=== PATIENT | male | born 1960 | race Caucasian/White ===

== ENCOUNTER 2016-10-10 20:46 | Inpatient (IN) | payer OTHER ==
[~2016-10-10] VITALS: Ht 172.7 cm; Wt 82.0 kg
[2016-10-10 20:49] VITALS: BP 105/64; PULSE 118; RESP 16; TEMP 99.2; O2SAT 98
[2016-10-10 20:55] VITALS: BP 122/69; PULSE 110; RESP 20; O2SAT 92
[2016-10-10] MEDS ORDERED: ONDANSETRON HCL 4 MG/2 ML VIAL IV PUSH ONE (21:00)
[2016-10-10] MEDS ORDERED: MORPHINE SULFATE 4 MG/ML INJ IV PUSH ONE (21:00)
[2016-10-10] MEDS ORDERED: SODIUM CHLORIDE 0.9% FLUSH 5 ML FLUSH IVF PRN (21:00)
[2016-10-10] MEDS ORDERED: SODIUM CHLORID 0.9% 500 ML INJ 500 ML IV ONE (21:00)
[2016-10-10 21:10] VITALS: O2SAT 92
[2016-10-10 21:26] VITALS: O2SAT 97
[2016-10-10 21:33] VITALS: BP 105/61; PULSE 100; RESP 18; O2SAT 97
--- NOTE | 2016-10-10 21:34 | PD ---
HPI Chief Complaint: Abdominal Pain Time Seen by Provider: 20:59 Travel History International Travel<30 days: No Contact w/Intl Traveler<30days: No Traveled to known affect area: No History of Present Illness HPI 56-year-old male came to the emergency room with history of right upper quadrant abdominal pain/right lower chest pain. Patient says this is going on for past 3 days and is progressively getting worse. He looked very uncomfortable. He says the pain worsens upon deep breath. He is coughing but not producing any phlegm. His temperature was 99.9. He was tachycardic in the ER with heart rate in 1 teens. No history of nausea or vomiting. No history of diarrhea. Patient has never had pain like this in the past. No radiation of the pain beyond the area described earlier. He says he has diabetes which is diet controlled. He was awake and answering questions appropriately. [facility] Past Medical History Narrative Medical List of his past medical, surgical, social and family history was reviewed from the nursing note. Diabetes: Yes (PRE) Social History Alcohol Use: Yes Tobacco Use: No Substance Use: No Allergies-Medications (Allergen,Severity, Reaction): Coded Allergies: Penicillin (Verified Allergy, Unknown, 10/10/16) Comments List of his allergies reviewed from the nursing note. Narrative Medication Awaiting for the nurse to complete the med reconciliation. Review of Systems Except as stated in HPI: all other systems reviewed are Neg Physical Exam Narrative GENERAL: Awake, alert, anxious, significant distress SKIN: Warm and dry. Pale HEAD: Atraumatic. Normocephalic. EYES: Pupils equal and round. No scleral icterus. No injection or drainage. ENT: No nasal bleeding or discharge. Dry mucous membrane NECK: Trachea midline. No JVD. CARDIOVASCULAR: Regular rate and rhythm. No murmur appreciated. RESPIRATORY: No accessory muscle use. Patient is tachypneic and short taking shallow breaths Clear to auscultation. Breath sounds equal bilaterally. GASTROINTESTINAL: Abdomen soft, Raymundo sign positive, nondistended. Hepatic and splenic margins not palpable. MUSCULOSKELETAL: No obvious deformities. No clubbing. No cyanosis. No edema. NEUROLOGICAL: Awake and alert. No obvious cranial nerve deficits. Motor grossly within normal limits. Normal speech. PSYCHIATRIC: Appropriate mood and affect; insight and judgment normal. Data Data Last Documented VS Vital Signs Date Time Temp Pulse Resp B/P Pulse Ox O2 Delivery O2 Flow Rate FiO2 10/10/16 23:10 16 10/10/16 21:33 100 105/61 97 Nasal Cannula 3 10/10/16 20:49 99.2 Orders Electrocardiogram (10/10/16 ) Basic Metabolic Panel (Bmp) (10/10/16 20:59) Ckmb (Isoenzyme) Profile (10/10/16 20:59) Complete Blood Count With Diff (10/10/16 20:59) Magnesium (Mg) (10/10/16 20:59) Prothrombin Time / Inr (Pt) (10/10/16 20:59) Act Partial Throm Time (Ptt) (10/10/16 20:59) Troponin I (10/10/16 20:59) Lipase (10/10/16 20:59) Chest, Single Ap (10/10/16 20:59) Ecg Monitoring (10/10/16 20:59) Bilateral Bp Monitoring (10/10/16 20:59) Iv Access Insert/Monitor (10/10/16 20:59) Oximetry (10/10/16 20:59) Oxygen Administration (10/10/16 20:59) Sodium Chloride 0.9% Flush (Ns Flush) (10/10/16 21:00) Sodium Chlorid 0.9% 500 Ml Inj (Ns 500 M (10/10/16 21:00) Ct Pulmonary Angiogram (10/10/16 20:59) Morphine Inj (Morphine Inj) (10/10/16 21:00) Ondansetron Inj (Zofran Inj) (10/10/16 21:00) Blood Culture (10/10/16 21:03) Lactic Acid (10/10/16 21:03) Ct Abd/Pel W Iv Contrast(Rout) (10/10/16 ) Sodium Chlor 0.9% 1000 Ml Inj (Ns 1000 M (10/10/16 22:08) Sodium Chlor 0.9% 1000 Ml Inj (Ns 1000 M (10/10/16 22:08) Sodium Chlor 0.9% 1000 Ml Inj (Ns 1000 M (10/10/16 22:08) Hepatic Functional Panel (10/10/16 22:08) Aztreonam Inj (Azactam Inj) (10/10/16 22:30) Vancomycin Inj (Vancomycin Inj) (10/10/16 22:30) Iodixanol 320 Inj (Rad Ct) (Visipaque 32 (10/10/16 22:29) Morphine Inj (Morphine Inj) (10/11/16 00:15) Admit Order (Ed Use Only) (10/11/16 00:14) NPO (10/11/16 00:14) Labs Laboratory Tests Test 10/10/16 10/10/16 10/10/16 21:05 21:17 22:19 White Blood Count 28.8 TH/MM3 Red Blood Count 4.76 MIL/MM3 Hemoglobin 13.9 GM/DL Hematocrit 41.3 % Mean Corpuscular Volume 86.7 FL Mean Corpuscular Hemoglobin 29.2 PG Mean Corpuscular Hemoglobin 33.7 % Concent Red Cell Distribution Width 13.8 % Platelet Count 233 TH/MM3 Mean Platelet Volume 7.7 FL Neutrophils (%) (Auto) 88.1 % Lymphocytes (%) (Auto) 5.4 % Monocytes (%) (Auto) 5.7 % Eosinophils (%) (Auto) 0.0 % Basophils (%) (Auto) 0.8 % Neutrophils # (Auto) 25.4 TH/MM3 Lymphocytes # (Auto) 1.5 TH/MM3 Monocytes # (Auto) 1.6 TH/MM3 Eosinophils # (Auto) 0.0 TH/MM3 Basophils # (Auto) 0.2 TH/MM3 CBC Comment DIFF FINAL Differential Comment Prothrombin Time 12.2 SEC Prothromb Time International 1.1 RATIO Ratio Activated Partial 31.5 SEC Thromboplast Time Sodium Level 133 MEQ/L Potassium Level 4.5 MEQ/L Chloride Level 97 MEQ/L Carbon Dioxide Level 24.0 MEQ/L Anion Gap 12 MEQ/L Blood Urea Nitrogen 32 MG/DL Creatinine 1.77 MG/DL Estimat Glomerular Filtration 40 ML/MIN Rate Random Glucose 228 MG/DL Hemoglobin A1c 8.0 % Calcium Level 8.8 MG/DL Magnesium Level 2.2 MG/DL Total Creatine Kinase 40 U/L Troponin I LESS THAN 0.02 NG/ML Lipase 44 U/L Lactic Acid Level 2.2 mmol/L Total Bilirubin 1.3 MG/DL Direct Bilirubin 0.4 MG/DL Indirect Bilirubin 0.9 MG/DL Aspartate Amino Transf 39 U/L (AST/SGOT) Alanine Aminotransferase 33 U/L (ALT/SGPT) Alkaline Phosphatase 97 U/L Total Protein 7.0 GM/DL Albumin 3.2 GM/DL MDM Medical Decision Making Medical Screen Exam Complete: Yes Emergency Medical Condition: Yes Medical Record Reviewed: Yes Interpretation(s) Twelve-lead EKG was reviewed by me. Normal sinus rhythm, normal axis, tachycardia, nonspecific ST-T wave changes. Incidentally patient has an S1 Q3 T3. Heart rate of 108 bpm Differential Diagnosis PE, pneumonia, acute cholecystitis Narrative Course 9:33 PM I try to attempt a bedside sonogram to look at the gallbladder but was unable to. Patient was uncomfortable with radiologic Raymundo's sign positive. Awaiting for the blood test results and the CAT scan to be done and resulted. I 'm concerned from PE standpoint as well given the history and the vitals. I've ordered 500 cc of IV fluid bolus, morphine for pain and Zofran. 10:41 PM patient's WBC count was significantly elevated with a left shift. Lactic acid was elevated as well. I have ordered IV fluid and antibiotic as per the sepsis protocol. The CAT scan has been done. Awaiting for the report. 11:15 PM CAT scan does not show any PE but acute cholecystitis. I have put a call out for the general surgeon. Patient will require admission. Awaiting for the general surgeon to call back. 12:07 AM case was discussed earlier with Dr. Argueta who was the patient nothing by mouth and we'll try to take the patient to the OR tomorrow. Because of the elevated glucose and possibility of underlying diabetes he wanted the patient to be admitted to medical service. Awaiting for the hospitalist to call back. Critical Care Narrative Aggregate critical care time was 45 minutes. Time to perform other separately billable procedures was not included in the critical care time. My time did not include minutes spent treating any other patients simultaneously or on activities that did not directly contribute to the patient's treatment. The services I provided to this patient were to treat and/or prevent clinically significant deterioration that could result in: Sepsis, sepsis protocol, respiratory distress, acute cholecystitis I provided critical care services requiring my management, as noted below: Chart data review, documentation time, medication orders and management, vital sign assessments/reviewing monitor data, ordering and reviewing lab tests, ordering and interpreting/reviewing x-rays and diagnostic studies, care of the patient and discussion of the patient with the admitting physicians. Procedures EKG Prior to Arrival: No Physician Communication Physician Communication Dr. Argueta Diagnosis Primary Impression: Sepsis Qualified Code: A41.9 - Sepsis, due to unspecified organism Additional Impressions: Respiratory distress Pleuritic chest pain Acute cholecystitis Hyperglycemia Dehydration Admitting Information Admitting Physician Requests: Admit Jesus Manuel Santiago MD Oct 10, 2016 21:34
--- NOTE | 2016-10-10 21:40 | RADRPT ---
EXAM DATE/TIME: 10/10/2016 21:18 [facility] COMPARISON: No previous studies available for comparison. INDICATIONS : Patient has had abdominal pain since Friday. He states he vomited Friday but that is it. MEDICAL HISTORY : None. SURGICAL HISTORY : None. ENCOUNTER: Initial ACUITY: 3 days PAIN SCORE: 9/10 LOCATION: Bilateral Abdominal. FINDINGS: There is trace left base atelectasis. Lungs are otherwise clear. No pleural effusion. No pneumothorax . Heart size within normal limits. CONCLUSION: Minimal left base atelectasis. Juan Benoit MD on October 10, 2016 at 21:38 Board Certified Radiologist. This report was verified electronically.
[2016-10-10 21:44] LABS: INTERNATIONAL NORMALIZED RATIO 1.1 RATIO; PROTHROMBIN TIME - PATIENT 12.2 SEC (9.8-11.6)
[2016-10-10 21:50] LABS: ANION GAP 12 MEQ/L (5-15); BLOOD UREA NITROGEN 32 MG/DL (7-18); CHLORIDE 97 MEQ/L (98-107); GLOMERULAR FILTRATION RATE 40 ML/MIN (>89); MAGNESIUM 2.2 MG/DL (1.5-2.5); SODIUM (NA) 133 MEQ/L (136-145)
[2016-10-10 21:56] LABS: APTT (PATIENT) 31.5 SEC (24.3-30.1)
[2016-10-10 22:05] LABS: AUTOMATED NEUTROPHIL # 25.4 TH/MM3 (1.8-7.7); BASOPHIL # 0.2 TH/MM3 (0-0.2); BASOPHIL % 0.8 % (0.0-2.0); HEMATOCRIT 41.3 % (39.0-51.0); HEMO FLAGS DIFF FINAL; LYMPH % 5.4 % (9.0-44.0); LYMPHOCYTE # 1.5 TH/MM3 (1.0-4.8); MEAN CELL VOLUME 86.7 FL (80.0-100.0); MEAN CORPUSCULAR HEMOGLOBIN 29.2 PG (27.0-34.0); MEAN CORPUSCULAR HGB CONC 33.7 % (32.0-36.0); MONO % 5.7 % (0.0-8.0); NEUT % 88.1 % (16.0-70.0); PLATELET COUNT 233 TH/MM3 (150-450); RED BLOOD COUNT 4.76 MIL/MM3 (4.50-5.90); RED CELL DISTRIBUTION WIDTH 13.8 % (11.6-17.2); WHITE BLOOD COUNT 28.8 TH/MM3 (4.0-11.0)
[2016-10-10] MEDS ORDERED: SODIUM CHLOR 0.9% 1000 ML INJ 1,000 ML IV ONE ×2 (22:08)
[2016-10-10] MEDS ORDERED: SODIUM CHLOR 0.9% 1000 ML INJ 700 ML IV ONE (22:08)
[2016-10-10] MEDS ORDERED: IODIXANOL 320 MG/ML 10 ML VIAL (for Rad CT) IV ONE (22:29)
[2016-10-10] MEDS ORDERED: AZTREONAM INJ 2,000 MG in SODIUM CHLORIDE 0.9% INJ 100 ML IV ONE (22:30)
[2016-10-10] MEDS ORDERED: VANCOMYCIN INJ 1,000 MG in SODIUM CHLOR 0.9% 250 ML INJ 250 ML IV ONE (22:30)
--- NOTE | 2016-10-10 22:43 | RADRPT ---
EXAM DATE/TIME: 10/10/2016 22:19 [facility] COMPARISON: No previous studies available for comparison. INDICATIONS : Right low chest pain, worse on inspiration, and tachycardic for three days IV CONTRAST: 50 cc Visipaque (iodixanol) IV ; Cumulative dose for multiple exams. RADIATION DOSE: 12.11 CTDIvol (mGy) ; Combined studies MEDICAL HISTORY : Diabetes mellitus type 2. SURGICAL HISTORY : None. ENCOUNTER: Initial ACUITY: 3 days PAIN SCALE: 7/10 LOCATION: Right chest TECHNIQUE: Volumetric scanning of the chest was performed using a pulmonary embolism protocol MIP images were re constructed. Using automated exposure control and adjustment of the mA and/or kV according to patien t size, radiation dose was kept as low as reasonably achievable to obtain optimal diagnostic quality images. FINDINGS: PULMONARY ARTERIES: No filling defects are seen in the pulmonary arteries through the segmental level. LUNGS: Mild bibasilar atelectasis. PLEURAE: There is no pleural thickening or pleural effusion. MEDIASTINUM: There is good visualization of the great vessels of the middle mediastinum. No evidence of mediastin al or hilar adenopathy/mass. There is patchy calcification proximally of the right coronary and the l eft anterior descending. MUSCULOSKELETAL: Within normal limits for patient age. CONCLUSION: No pulmonary embolus. Mild bibasilar atelectasis. Coronary artery calcification. Juan Benoit MD on October 10, 2016 at 22:41 Board Certified Radiologist. This report was verified electronically.
--- NOTE | 2016-10-10 22:47 | RADRPT ---
EXAM DATE/TIME: 10/10/2016 22:19 [facility] COMPARISON: No previous studies available for comparison. INDICATIONS : Right upper quadrant pain for three days IV CONTRAST: 50 cc Visipaque (iodixanol) IV ; Cumulative dose for multiple exams. ORAL CONTRAST: No oral contrast ingested. RADIATION DOSE: 13.05 CTDIvol (mGy) ; Combined studies MEDICAL HISTORY : Diabetes mellitus type 2. SURGICAL HISTORY : None. ENCOUNTER: Initial ACUITY: 1 day PAIN SCALE: 7/10 LOCATION: Right upper quadrant TECHNIQUE: Volumetric scanning of the abdomen and pelvis was performed. Using automated exposure control and ad justment of the mA and/or kV according to patient size, radiation dose was kept as low as reasonably achievable to obtain optimal diagnostic quality images. FINDINGS: Distended gallbladder with wall thickening and pericholecystic edema noted. Tiny stones are suspected . I don't see a duct stone or ductal dilatation. Liver, spleen, pancreas, adrenal glands and kidneys are within normal limits. No obstruction or acute inflammatory changes are seen of the gastrointestinal tract. 16mm air and flu id-filled diverticulum seen in the third portion of the duodenum.CONCLUSION: Acute cholecystitis with possible small stones. No evidence of ductal dilatation. Juan Benoit MD on October 10, 2016 at 22:43 Board Certified Radiologist. This report was verified electronically.
[2016-10-10 23:02] LABS: INDIRECT BILIRUBIN 0.9 MG/DL (0.0-0.8); TOTAL BILIRUBIN ADULT 1.3 MG/DL (0.2-1.0)
[2016-10-11] MEDS ORDERED: MORPHINE SULFATE 4 MG/ML INJ IV PUSH ONE (00:15)
[2016-10-11] MEDS: D5-1/2 NS + KCL 20 MEQ INJ 1,000 ML IV SCH ×2 (00:17→01:00)
[2016-10-11] MEDS ORDERED: SODIUM CHLORIDE 0.9% FLUSH 5 ML FLUSH FLUSH PRN (00:30)
[2016-10-11] MEDS ORDERED: ONDANSETRON HCL 4 MG/2 ML VIAL IVP PRN (00:30)
[2016-10-11] MEDS ORDERED: NALOXONE HCL 0.4 MG/ML AMP IV PRN ×3 (00:30→21:15)
[2016-10-11 01:45] VITALS: BP 129/74; PULSE 106; RESP 20; TEMP 98.6; O2SAT 98
[2016-10-11 03:54] LABS: CREATINE KINASE 40 U/L (39-308)
[2016-10-11 03:58] LABS: POTASSIUM 4.5 MEQ/L (3.5-5.1)
[2016-10-11 04:00] VITALS: BP 133/78
[2016-10-11] MEDS: AZTREONAM INJ 1,000 MG in SODIUM CHLORIDE 0.9% INJ 100 ML IV SCH ×3 (06:26→21:54)
[2016-10-11] MEDS: MORPHINE SULFATE 4 MG/ML INJ IV PUSH PRN ×3 (07:16→13:48)
[2016-10-11 08:30] VITALS: BP 122/62; PULSE 105; RESP 20; TEMP 100.5; O2SAT 96
[2016-10-11] MEDS ORDERED: GLUCAGON 1 MG/ML VIAL OTHER PRN (08:30)
[2016-10-11] MEDS ORDERED: DEXTROSE 50% IN WATER 50 ML VIAL(D50) IV PUSH PRN (08:30)
--- NOTE | 2016-10-11 08:31 | HHI.HP ---
[facility] Service [facility] Primary Care Physician No Primary Care Physician Admission Diagnosis sepsis, acute cholecystitis, dehydration Diagnoses: (1) Sepsis (2) Acute cholecystitis (3) Acute renal failure (4) Borderline diabetes mellitus Chief Complaint: Right upper quadrant pain Travel History International Travel<30 Days: No Contact w/Intl Traveler <30 Da: No Traveled to Known Affected Are: No Sepsis Criteria SIRS Criteria (2 or more): Heart rate over 90, WBC > 58992, < 4000 or > 10% bands Sepsis Criteria (SIRS+source): Infect source susp/known Severe Sepsis (+one): Lactate >2 Criteria Outcome: Meets sepsis criteria History of Present Illness 56-year-old male with a history of borderline diabetes presented to the ED and subsequently was admitted secondary to progressively worse right upper quadrant pain 3 days duration rated 9/10 in intensity with some pleuritic chest pain. Patient also complains of associated with nausea and vomiting made worse with deep breathing. Patient reported subjective fever however denies any cough production. CT abdomen positive for acute cholecystitis, abnormal labs include WBC 28.8, lactate acid 2.2, BUN/creatinine 33/1.77. Patient denies any GI bleeding, hematuria, hemoptysis or currently chest pain. Review of Systems Other 12 systems reviewed are negative except for the one mentioned in the history of present illness Past Family Social History Past Medical History Borderline diabetes History of hypertension however resolved Past Surgical History Eye surgeries secondary to retinopathy Reported Medications Not currently on any medication Allergies: Coded Allergies: Penicillin (Verified Allergy, Unknown, 10/10/16) Family History Mother had diabetes type 2 Father from complication of brain cancer Social History Patient denies tobacco however reports social alcohol as well as occasional marijuana use. He is currently employed Physical Exam Vital Signs Vital Signs Date Time Temp Pulse Resp B/P Pulse Ox O2 Delivery O2 Flow Rate FiO2 10/11/16 04:00 133/78 10/11/16 01:45 98.6 106 20 129/74 98 10/10/16 23:10 16 10/10/16 21:33 100 18 105/61 97 Nasal Cannula 3 10/10/16 21:26 97 Nasal Cannula 3 10/10/16 21:26 96 Nasal Cannula 3 10/10/16 21:10 92 Room Air 10/10/16 21:10 92 Room Air 10/10/16 20:55 110 20 122/69 92 Room Air 10/10/16 20:54 18 10/10/16 20:49 99.2 118 16 105/64 98 Room Air Physical Exam GENERAL: This is a well-nourished, well-developed patient, in no apparent distress. SKIN: No rashes, ecchymoses or lesions. Cool and dry. HEAD: Atraumatic. Normocephalic. No temporal or scalp tenderness. EYES: Pupils equal round and reactive. Extraocular motions intact. No scleral icterus. No injection or drainage. ENT: Nose without bleeding, purulent drainage or septal hematoma. Throat without erythema, tonsillar hypertrophy or exudate. Uvula midline. Airway patent. NECK: Trachea midline. No JVD or lymphadenopathy. Supple, nontender, no meningeal signs. CARDIOVASCULAR: Regular rate and rhythm without murmurs, gallops, or rubs. RESPIRATORY: Clear to auscultation. Breath sounds equal bilaterally. No wheezes , rales, or rhonchi. GASTROINTESTINAL: Abdomen soft, mildly tender RUQ, nondistended. No hepato- splenomegaly, or palpable masses. No guarding. Positive bowel sounds MUSCULOSKELETAL: Extremities without clubbing, cyanosis, or edema. No joint tenderness, effusion, or edema noted. No calf tenderness. Negative Homans sign bilaterally. NEUROLOGICAL: Awake and alert. Cranial nerves II through XII intact. Motor and sensory grossly within normal limits. Five out of 5 muscle strength in all muscle groups. Normal speech. Laboratory Laboratory Tests Test 10/10/16 10/10/16 10/10/16 21:05 21:17 22:19 White Blood Count 28.8 Red Blood Count 4.76 Hemoglobin 13.9 Hematocrit 41.3 Mean Corpuscular Volume 86.7 Mean Corpuscular Hemoglobin 29.2 Mean Corpuscular Hemoglobin 33.7 Concent Red Cell Distribution Width 13.8 Platelet Count 233 Mean Platelet Volume 7.7 Neutrophils (%) (Auto) 88.1 Lymphocytes (%) (Auto) 5.4 Monocytes (%) (Auto) 5.7 Eosinophils (%) (Auto) 0.0 Basophils (%) (Auto) 0.8 Neutrophils # (Auto) 25.4 Lymphocytes # (Auto) 1.5 Monocytes # (Auto) 1.6 Eosinophils # (Auto) 0.0 Basophils # (Auto) 0.2 CBC Comment DIFF FINAL Differential Comment Prothrombin Time 12.2 Prothromb Time International 1.1 Ratio Activated Partial 31.5 Thromboplast Time Sodium Level 133 Potassium Level 4.5 Chloride Level 97 Carbon Dioxide Level 24.0 Anion Gap 12 Blood Urea Nitrogen 32 Creatinine 1.77 Estimat Glomerular Filtration 40 Rate Random Glucose 228 Calcium Level 8.8 Magnesium Level 2.2 Total Creatine Kinase 40 Troponin I LESS THAN 0.02 Lipase 44 Lactic Acid Level 2.2 Total Bilirubin 1.3 Direct Bilirubin 0.4 Indirect Bilirubin 0.9 Aspartate Amino Transf 39 (AST/SGOT) Alanine Aminotransferase 33 (ALT/SGPT) Alkaline Phosphatase 97 Total Protein 7.0 Albumin 3.2 Date/Time Procedure Status Source Growth 10/10/16 21:17 Aerobic Blood Culture Received Blood Peripheral Pending 10/10/16 21:17 Anaerobic Blood Culture Received Blood Peripheral Pending Result Diagram: 10/10/16210410/10/162104 Imaging Last Impressions Chest X-Ray 10/10/162058 Signed Impressions: Service Date/Time: September 21:18 - CONCLUSION: Minimal left base atelectasis. Juan Benoit MD CT Angiography 10/10/162058 Signed Impressions: Service Date/Time: September 22:19 - CONCLUSION: No pulmonary embolus. Mild bibasilar atelectasis. Coronary artery calcification. Juan Benoit MD Abdomen/Pelvis CT 10/10/16 0000 Signed Impressions: Service Date/Time: September 22:19 - CONCLUSION: Acute cholecystitis with possible small stones. No evidence of ductal dilatation. Juan Benoit MD Assessment and Plan Problem List: (1) Sepsis ICD Code: A41.9 Status: Acute (2) Acute cholecystitis ICD Code: K81.0 Status: Acute (3) Acute renal failure ICD Code: N17.9 Status: Acute (4) Borderline diabetes mellitus ICD Code: R73.03 Status: Acute Assessment and Plan 56-year-old male with Severe Sepsis: Meets sepsis criteria; Heart rate over 90, WBC > 01817, < 4000 or > 10% bands and Lactate >2; source secondary to intra-abdominal process; currently on Azactam IV every 8 hours pending culture reports Acute cholecystitis: CT abdomen noted and reviewed by me with finding of Acute cholecystitis with possible small stones; general surgery has been consulted and patient currently nothing by mouth pending possible lap cholecystectomy . Currently on Azactam IV every 8 pending culture reports. Continue with IV fluid, pain management accordingly Pleuritic chest pain: CTA noted and reviewed by me without any PE, pleuritic chest pain now resolved and was most likely radiation from right upper quadrant associated with acute cholecystitis Acute renal failure: Prerenal, secondary to dehydration, new IV fluid hydration and monitor BUN and creatinine. Avoid all nephrotoxic drugs. Borderline diabetes type 2: Labile blood glucose, check hemoglobin A1c and start insulin sliding scale with fingerstick blood glucose monitoring. GI prophylaxis: PPI DVT prophylaxis: Bilateral SCDs Code Status Full code Discussed Condition With Patient Physician Certification 2 Midnight Certification Type: Admission for Inpatient Services Order for Inpatient Services The services are ordered in accordance with Medicare regulations or non- Medicare payer requirements, as applicable. In the case of services not specified as inpatient-only, they are appropriately provided as inpatient services in accordance with the 2-midnight benchmark. Estimated LOS (days): 2 days is the estimated time the patient will need to remain in the hospital, assuming treatment plan goals are met and no additional complications. Post-Hospital Plan: Not yet determined Problem Qualifiers (1) Sepsis: Qualified Code: A41.9 - Sepsis, due to unspecified organism Travon Daniels MD Oct 11, 2016 08:31
[2016-10-11] MEDS ORDERED: ENALAPRILAT 1.25 MG/ML VIAL IV PUSH PRN (08:45)
[2016-10-11] MEDS ORDERED: RESP: ALBUTEROL 2.5 MG/IPRATROPIUM 0.5 MG NEB (PRN) NEB (08:45)
[2016-10-11] MEDS: SODIUM CHLORIDE 0.9% FLUSH 5 ML FLUSH FLUSH SCH ×2 (09:00→21:00)
[2016-10-11] MEDS: SODIUM CHLOR 0.9% 1000 ML INJ 1,000 ML IV SCH ×2 (09:26→23:09)
[2016-10-11] MEDS: PANTOPRAZOLE SODIUM 40 MG VIAL IV PUSH SCH (09:28)
[2016-10-11] MEDS: INSULIN ASPART SUPPLEMENTAL SCALE SQ SCH ×3 (11:00→21:00)
[2016-10-11] MEDS ORDERED: CLINDAMYCIN INJ 600 MG in SODIUM CHLORIDE 0.9% INJ 100 ML IV ONE (11:00)
--- NOTE | 2016-10-11 11:19 | MB ---
cc: RUPERT DANIELS MD DATE OF CONSULTATION 10/11/2016 CHIEF COMPLAINT Right upper quadrant pain, acute cholecystitis. HISTORY OF PRESENT ILLNESS The patient is 56-year-old male who presents with a complaint of right upper quadrant abdominal pain. States the pain started approximately three days ago and has continued to get worse. He states the pain is sharp at a 9/10, currently 8/10, some relief with the pain medication, he says it gets worse with movement and is better with lying still. He did have associated nausea and vomiting x1 and currently says his nausea is improving. He did have subjective fevers. He came to the emergency department for further evaluation with a CT scan finding of a dilated gallbladder with thickened gallbladder wall and concerns for acute cholecystitis with cholelithiasis. The WBC was 28 and the patient was discussed as surgical consultation. On my exam, the patient is resting. He states his pain is pretty significant at this moment. He has never had pain quite like this before in his life and states it has been pretty constant. He denies diarrhea, constipation or any GI bleeding. PAST MEDICAL HISTORY 1. Borderline diabetes resolved 2. Hypertension PAST SURGICAL HISTORY Eye surgery MEDICATIONS See EMR. ALLERGIES PENICILLIN FAMILY HISTORY Mother with diabetes. Father with brain cancer. SOCIAL HISTORY The patient denies smoking, ETOH or IVDA. REVIEW OF SYSTEMS GENERAL: The patient complained of subjective fevers. HEENT: Denies eye pain, ear pain or scleral icterus. NECK: Trachea midline, supple. LUNGS: Clear to auscultation bilateral. Bilateral expansion. HEART: S1-S2 regular. ABDOMEN: Soft, positive tenderness to palpation right upper quadrant. Positive localized rebound. No guarding. No scars. EXTREMITIES: Warm, well-perfused. NEUROLOGIC: GCS of 15, 5/5 motor all extremities. INTEGUMENT: No obvious masses or lesions. PSYCH: Good insight. Good judgment. : Denies dysuria or hematuria. ENDOCRINE: Denies polyuria or polydipsia. PHYSICAL EXAMINATION VITALS: Temperature 98.6, pulse 106, respiration 20, blood pressure 129/74, saturation 98% on room air. HEENT: PERRLA, EOMI. No scleral icterus. NECK: Supple. LUNGS: Bilateral expansion. Clear. HEART: S1, S2 regular rate and rhythm. ABDOMEN: Soft, positive tenderness to palpation right upper quadrant. EXTREMITIES: Warm, well-perfused, nontender. 2+ pulses. NEUROLOGIC: AO x four. No numbness. PSYCH: No change in sensorium or mental status. LABORATORY AND DIAGNOSTIC DATA WBC 28.8, hemoglobin 13.99 of 41.3, platelet count 233. Sodium 133, potassium 4.5, chloride 97, CO2 24, BUN 32, creatinine of 1.7, calcium 8.8, troponin less than 0.2, lipase 44, T-bili 1.3, AST 39, ALT 33, alk phos 97. CT scan reviewed by myself showing concern for inflamed dilated gallbladder and acute cholecystitis, small stones. ASSESSMENT The patient is a 56-year-old male who presents with acute onset of right upper quadrant pain and concern for acute cholecystitis with cholelithiasis. PLAN After a full clinical radiologic and laboratory workup patient with the above-named complaint including acute cholecystitis. At this point, the patient needs IV antibiotics, adequate pain control, IV fluids, close monitoring. We will plan for operative intervention including a laparoscopic cholecystectomy, possible open. This was discussed with the patient in detail. The patient states understanding, agrees and would like to proceed with intervention. Thank you for this consultation. MD VÍCTOR Peña/JAMIE /10:54 AM /11:08 AM
[2016-10-11 11:55] VITALS: O2SAT 92
[2016-10-11 12:00] VITALS: BP 117/68; PULSE 104; RESP 16; TEMP 99.2; O2SAT 98
[2016-10-11] MEDS ORDERED: NORMOSOL R INJ 1,000 ML IV ONE (12:00)
[2016-10-11] MEDS ORDERED: LACTATED RINGER'S 1000 ML INJ 3,000 ML IV ONE (12:34)
[2016-10-11] MEDS ORDERED: PROPOFOL 200 MG/20 ML AMP IV ONE (12:34)
[2016-10-11] MEDS ORDERED: NORMOSOL R INJ 3,000 ML IV ONE (12:34)
[2016-10-11] MEDS ORDERED: PHENYLEPH/NS 1000 MCG/10 ML SYR IV ONE (12:34)
[2016-10-11] MEDS ORDERED: NEOSTIGMINE 3 MG/3 ML SYR IV ONE (12:34)
[2016-10-11] MEDS ORDERED: ONDANSETRON HCL 4 MG/2 ML VIAL IV PUSH ONE (12:34)
[2016-10-11] MEDS ORDERED: LIDOCAINE 1%/EPINEPHrine 1:100,000 SOLN 50 ML VIAL ONE (14:25)
--- NOTE | 2016-10-11 14:56 | EKG ---
Date Performed: 10/10/2016 Time Performed: 21:09:38 PTAGE: 56 years EKG: SINUS TACHYCARDIA INFERIOR MYOCARDIAL INFARCTION ABNORMAL ECG NO PREVIOUS TRACING DOCTOR: Della Faye Interpretating Date/Time 10/11/2016 14:52:47
[2016-10-11] MEDS ORDERED: FAMOTIDINE 20 MG/2 ML VIAL ONE (16:04)
[2016-10-11] MEDS ORDERED: MIDAZOLAM HCL 2 MG/2 ML VIAL ONE (16:04)
[2016-10-11] MEDS ORDERED: DEXAMETHASONE SOD PHOS 4 MG/ML VIAL ONE (16:04)
[2016-10-11 16:40] LABS: HEMOGLOBIN A1a 1.1 %; HEMOGLOBIN LA1C 2.5 %; HEMOGLOBIN P3 4.7 %
--- NOTE | 2016-10-11 18:23 | HHI.PR ---
Immediate Post Op Note Procedure Date: Oct 11, 2016 Pre Op Diagnosis: gangrenous acute cholecystitis Post Op Diagnosis: same Surgeon: Param Argueta MD Director Dietetics Department(s): Dr. Elliot Schmitt Procedure: lap avery converted to open avery Findings: necrotic gallbladder Complications: none Specimen(s) removed: gallbladder Estimated blood loss: 600cc Anesthesia: General Drains: PRATIMA IVF ([id number]) Patient to: PACU Patient Condition: Good Param Argueta MD Oct 11, 2016 18:23
[2016-10-11] MEDS ORDERED: BUPIVACAINE/EPINEPHRINE 0.25% 50 ML VIAL INFIL ONE (18:34)
[2016-10-11] MEDS ORDERED: MORPHINE SULFATE 4 MG/ML INJ IV PUSH PRN (19:00)
[2016-10-11] MEDS ORDERED: oxyCODONE/ACETAMINOPHEN 5 MG/325 MG TAB PO PRN (19:00)
[2016-10-11 19:46] LABS: BLOOD GAS BASE EXCESS -5.5 mmol/L (-2-2); BLOOD GAS HCO3 18 mmol/L (22-26); BLOOD GAS METHEMOGLOBIN 1.3 % (0-2); BLOOD GAS O2 HGB SATURATION 96 % (90-100); BLOOD GAS OXYGEN CONTENT 19.6 Vol % (12.0-20.0); BLOOD GAS PCO2 30 mmHg (38-42); BLOOD GAS PO2 177 mmHg (61-120); BLOOD GAS TOTAL HGB 14.3 G/DL (12.0-16.0); CRITICAL VALUE NO; FIO2 54 %; OXYGEN DEVICE O.R. ABG; STAT YES; TEMP CORR TO 98.6
[2016-10-11] MEDS ORDERED: ACETAMINOPHEN 1000 MG/100 ML VIAL IV ONE (20:38)
[2016-10-11] MEDS: LACTOBACILLUS ACIDOPHILUS TAB PO SCH (21:00)
[2016-10-11] MEDS ORDERED: MORPHINE SULFATE 30 MG/30 ML PCA IV SCH (21:15)
[2016-10-11] MEDS ORDERED: MORPHINE SULFATE 4 MG/ML INJ ONE (21:30)
[2016-10-11] MEDS ORDERED: fentaNYL CITRATE 250 MCG/5 ML AMP ONE ×2 (21:30)
[2016-10-11] MEDS: PCA - TOTAL MG MORPHINE DELIVERED PER SHIFT SCH (22:00)
[2016-10-12] VITALS (7 sets, daily range): BP systolic 108–161; BP diastolic 64–83; PULSE 88–114; RESP 16–20; TEMP 96–98.4; O2SAT 93–99
[2016-10-12 05:17] LABS: WHITE BLOOD COUNT 14.5 TH/MM3 (4.0-11.0)
[2016-10-12 05:18] LABS: AUTOMATED NEUTROPHIL # 13.8 TH/MM3 (1.8-7.7); BASOPHIL % 0.1 % (0.0-2.0); HEMATOCRIT 28.6 % (39.0-51.0); HEMO FLAGS DIFF FINAL; LYMPH % 2.1 % (9.0-44.0); LYMPHOCYTE # 0.3 TH/MM3 (1.0-4.8); MEAN CELL VOLUME 90.4 FL (80.0-100.0); MEAN CORPUSCULAR HEMOGLOBIN 30.1 PG (27.0-34.0); MEAN CORPUSCULAR HGB CONC 33.3 % (32.0-36.0); MONO % 3.1 % (0.0-8.0); NEUT % 94.7 % (16.0-70.0); PLATELET COUNT 184 TH/MM3 (150-450); RED BLOOD COUNT 3.17 MIL/MM3 (4.50-5.90); RED CELL DISTRIBUTION WIDTH 14.3 % (11.6-17.2)
[2016-10-12 05:35] LABS: BICARBONATE 21.9 MEQ/L (21.0-32.0); CALCIUM-PROTEIN CORRECTED 8.2 MG/DL (8.5-10.1); POTASSIUM 4.4 MEQ/L (3.5-5.1); TOTAL BILIRUBIN ADULT 0.6 MG/DL (0.2-1.0)
[2016-10-12] MEDS: SODIUM CHLOR 0.9% 1000 ML INJ 1,000 ML IV SCH ×3 (05:40→23:06)
[2016-10-12] MEDS: PCA - TOTAL MG MORPHINE DELIVERED PER SHIFT SCH ×3 (05:41→20:48)
[2016-10-12] MEDS: AZTREONAM INJ 1,000 MG in SODIUM CHLORIDE 0.9% INJ 100 ML IV SCH ×3 (05:41→23:06)
[2016-10-12] MEDS: INSULIN ASPART SUPPLEMENTAL SCALE SQ SCH ×3 (05:42→20:47)
--- NOTE | 2016-10-12 07:05 | HHI.PR ---
Subjective Subjective Notes no acute issues, wbc 14k improved, no nausea, pain much better Objective Vitals/I&O Vital Signs Date Time Temp Pulse Resp B/P Pulse Ox O2 Delivery O2 Flow Rate FiO2 10/12/16 05:41 18 10/12/16 04:00 98.4 102 133/71 99 10/11/16 22:00 Nasal Cannula 2 Labs Laboratory Tests Test 10/11/16 10/11/16 10/11/16 10/11/16 19:14 19:30 19:38 19:42 Blood Type O POSITIVE O POSITIVE Antibody Screen NEGATIVE Crossmatch Leukocyte-Reduced Red Blood Cells Blood Bank Comment Blood Gas Puncture Site Blood Gas Patient Temperature 98.6 Blood Gas HCO3 18 Blood Gas Base Excess -5.5 Blood Gas Oxygen Saturation 96 Arterial Blood pH 7.41 Arterial Blood Partial 30 Pressure CO2 Arterial Blood Partial 177 Pressure O2 Arterial Blood Oxygen Content 19.6 Arterial Blood 2.0 Carboxyhemoglobin Arterial Blood Methemoglobin 1.3 Blood Gas Hemoglobin 14.3 Oxygen Delivery Device O.R. ABG Blood Gas Inspired Oxygen 54 Test 10/12/16 04:13 White Blood Count 14.5 Red Blood Count 3.17 Hemoglobin 9.5 Hematocrit 28.6 Mean Corpuscular Volume 90.4 Mean Corpuscular Hemoglobin 30.1 Mean Corpuscular Hemoglobin 33.3 Concent Red Cell Distribution Width 14.3 Platelet Count 184 Mean Platelet Volume 8.2 Neutrophils (%) (Auto) 94.7 Lymphocytes (%) (Auto) 2.1 Monocytes (%) (Auto) 3.1 Eosinophils (%) (Auto) 0.0 Basophils (%) (Auto) 0.1 Neutrophils # (Auto) 13.8 Lymphocytes # (Auto) 0.3 Monocytes # (Auto) 0.5 Eosinophils # (Auto) 0.0 Basophils # (Auto) 0.0 CBC Comment DIFF FINAL Differential Comment Sodium Level 138 Potassium Level 4.4 Chloride Level 105 Carbon Dioxide Level 21.9 Anion Gap 11 Blood Urea Nitrogen 27 Creatinine 1.52 Estimat Glomerular Filtration 47 Rate Random Glucose 300 Calcium Level 7.2 Protein Corrected Calcium 8.2 Total Bilirubin 0.6 Aspartate Amino Transf 103 (AST/SGOT) Alanine Aminotransferase 90 (ALT/SGPT) Alkaline Phosphatase 120 Total Protein 5.3 Albumin 2.0 Date/Time Procedure Status Source Growth 10/10/16 21:17 Aerobic Blood Culture - Preliminary Resulted Blood Peripheral NO GROWTH IN 1 DAY 10/10/16 21:17 Anaerobic Blood Culture - Preliminary Resulted Blood Peripheral NO GROWTH IN 1 DAY Cardiovascular: Regular Lungs: Clear Abdomen: Other (incision with dressing c/d/i mylene serosang) A/P Assessment and Plan POD 1 open avery for necrotic gallbladder, cholecystitis PLAN Advance to fulls hot shot will wean tomorrow oob dvt ppx scd mylene sxn f/u labs likely d/c friday or friday Param Argueta MD Oct 12, 2016 07:05
[2016-10-12] MEDS: SODIUM CHLORIDE 0.9% FLUSH 5 ML FLUSH FLUSH SCH ×2 (09:00→20:47)
[2016-10-12] MEDS: PANTOPRAZOLE SODIUM 40 MG VIAL IV PUSH SCH ×2 (09:09→09:15)
[2016-10-12] MEDS: LACTOBACILLUS ACIDOPHILUS TAB PO SCH ×2 (09:10→09:15)
--- NOTE | 2016-10-12 11:11 | HHI.PR ---
Subjective Remarks Follow-up acute cholecystitis/status post lap converted to open cholecystectomy 10/12/16-patient seen and examined; denies any significant abdominal pain; ambulating without any significant pain. Tolerating current diet. Afebrile Objective Vitals Vital Signs Date Time Temp Pulse Resp B/P Pulse Ox O2 Delivery O2 Flow Rate FiO2 10/12/16 08:00 97.6 102 17 119/72 98 10/12/16 05:41 18 10/12/16 04:00 98.4 102 20 133/71 99 10/12/16 00:00 98.3 114 20 108/65 98 10/11/16 23:25 20 10/11/16 23:18 16 10/11/16 22:00 98.0 110 16 97 Nasal Cannula 2 10/11/16 22:00 20 10/11/16 21:45 106 16 106/54 94 Nasal Cannula 2 10/11/16 21:30 107 16 107/57 97 Nasal Cannula 2 10/11/16 21:20 98.8 111 20 108/65 99 Nasal Cannula 2 10/11/16 12:00 99.2 104 16 117/68 98 10/11/16 11:55 92 Nasal Cannula 2.00 I/O 10/11/16 10/11/16 10/11/16 10/12/16 10/12/16 10/12/16 07:00 15:00 23:00 07:00 15:00 23:00 Intake Total 0 ml 0 ml 4600 ml 1558 ml Output Total 0 ml 1150 ml 350 ml 240 ml Balance 0 ml 0 ml 3450 ml 1208 ml -240 ml Intake Oral 0 ml 0 ml 720 ml IV Total 200 ml 838 ml Other 4400 ml Output Urine Total 0 ml 500 ml 350 ml Drainage Total 50 ml 240 ml Estimated Blood Loss 600 ml # Voids 2 # Bowel Movements 0 Result Diagram: 10/12/16 0413 10/12/16 0413 Imaging Last Impressions Chest X-Ray 10/10/162058 Signed Impressions: Service Date/Time: September 21:18 - CONCLUSION: Minimal left base atelectasis. Juan Benoit MD CT Angiography 10/10/162058 Signed Impressions: Service Date/Time: September 22:19 - CONCLUSION: No pulmonary embolus. Mild bibasilar atelectasis. Coronary artery calcification. Juan Benoit MD Abdomen/Pelvis CT 10/10/16 0000 Signed Impressions: Service Date/Time: September 22:19 - CONCLUSION: Acute cholecystitis with possible small stones. No evidence of ductal dilatation. Juan Benoit MD Objective Remarks GENERAL: NAD SKIN: Warm and dry. HEAD: Normocephalic. EYES: No scleral icterus. No injection or drainage. NECK: Supple, trachea midline. No JVD or lymphadenopathy. CARDIOVASCULAR: Regular rate and rhythm without murmurs, gallops, or rubs. RESPIRATORY: Breath sounds equal bilaterally. No accessory muscle use. GASTROINTESTINAL: Abdomen soft, non-tender, nondistended. inc c/d/i- PRATIMA drain in place MUSCULOSKELETAL: No cyanosis, or edema. BACK: Nontender without obvious deformity. No CVA tenderness. Procedures lap avery converted to open cystectomy 10/11/16 A/P Problem List: (1) Sepsis ICD Code: A41.9 Status: Acute (2) Acute cholecystitis ICD Code: K81.0 Status: Acute (3) Acute renal failure ICD Code: N17.9 Status: Acute (4) Borderline diabetes mellitus ICD Code: R73.03 Status: Acute Assessment and Plan 56-year-old male with Severe Sepsis: currently on Azactam IV every 8 hours pending culture reports Acute cholecystitis: CT abdomen noted and reviewed by me with finding of Acute cholecystitis with possible small stones;s/p lap avery converted to open cholecystectomy 10/11/16. Currently on Azactam IV every 8 pending culture reports. Continue with IV fluid, pain management accordingly Pleuritic chest pain: Resolved. CTA noted and reviewed by me without any PE, pleuritic chest pain now resolved and was most likely radiation from right upper quadrant associated with acute cholecystitis Acute renal failure: Prerenal, secondary to dehydration, continue IV fluid hydration and monitor BUN and creatinine. Avoid all nephrotoxic drugs. Borderline diabetes type 2: A1c 8.0, on sliding scale and more likely will be discharged home on metformin as well as basal insulin. Will start NPH 70/30 10 units BID. Recommend outpatient evaluation from endocrinology GI prophylaxis: PPI DVT prophylaxis: Bilateral SCDs Problem Qualifiers (1) Sepsis: Qualified Code: A41.9 - Sepsis, due to unspecified organism Travon Daniels MD Oct 12, 2016 11:11
[2016-10-12] MEDS ORDERED: GLUCAGON 1 MG/ML VIAL OTHER PRN (11:15)
[2016-10-12] MEDS ORDERED: DEXTROSE 50% IN WATER 50 ML VIAL(D50) IV PUSH PRN (11:15)
[2016-10-12] MEDS: INSULIN HUMAN NPH/R 70/30 1,000 UNITS/10 ML VIAL SQ SCH (17:18)
[2016-10-13 04:01] VITALS: BP 165/77; PULSE 84; RESP 18; TEMP 97.1; O2SAT 95
[2016-10-13] MEDS: AZTREONAM INJ 1,000 MG in SODIUM CHLORIDE 0.9% INJ 100 ML IV SCH (04:24)
[2016-10-13] MEDS: PCA - TOTAL MG MORPHINE DELIVERED PER SHIFT SCH (04:26)
[2016-10-13] MEDS: INSULIN ASPART SUPPLEMENTAL SCALE SQ SCH ×4 (04:27→20:40)
[2016-10-13 05:41] LABS: AUTOMATED NEUTROPHIL # 10.2 TH/MM3 (1.8-7.7); HEMATOCRIT 24.1 % (39.0-51.0); HEMO FLAGS DIFF FINAL; LYMPH % 5.9 % (9.0-44.0); LYMPHOCYTE # 0.7 TH/MM3 (1.0-4.8); MEAN CELL VOLUME 87.2 FL (80.0-100.0); MEAN CORPUSCULAR HEMOGLOBIN 29.5 PG (27.0-34.0); MEAN CORPUSCULAR HGB CONC 33.8 % (32.0-36.0); MONO % 5.6 % (0.0-8.0); NEUT % 88.5 % (16.0-70.0); PLATELET COUNT 194 TH/MM3 (150-450); RED BLOOD COUNT 2.77 MIL/MM3 (4.50-5.90); RED CELL DISTRIBUTION WIDTH 13.8 % (11.6-17.2); WHITE BLOOD COUNT 11.5 TH/MM3 (4.0-11.0)
[2016-10-13 07:00] LABS: ALKALINE PHOSPHATASE 107 U/L (45-117); ALT (GPT) 75 U/L (12-78); ANION GAP 8 MEQ/L (5-15); AST (GOT) 60 U/L (15-37); BICARBONATE 24.1 MEQ/L (21.0-32.0); BLOOD UREA NITROGEN 21 MG/DL (7-18); CHLORIDE 108 MEQ/L (98-107); GLOMERULAR FILTRATION RATE 93 ML/MIN (>89); POTASSIUM 4.1 MEQ/L (3.5-5.1); SODIUM (NA) 140 MEQ/L (136-145); TOTAL BILIRUBIN ADULT 0.3 MG/DL (0.2-1.0)
[2016-10-13 08:00] VITALS: BP 135/70; PULSE 89; RESP 17; TEMP 96.9; O2SAT 92
--- NOTE | 2016-10-13 08:56 | HHI.PR ---
Subjective Remarks Follow-up acute cholecystitis/status post lap converted to open cholecystectomy 10/12/16-patient seen and examined; denies any significant abdominal pain; ambulating without any significant pain. Tolerating current diet. Afebrile 10/13/16-patient seen and examined, blood glucose well controlled, afebrile and pain well tolerated. Objective Vitals Vital Signs Date Time Temp Pulse Resp B/P Pulse Ox O2 Delivery O2 Flow Rate FiO2 10/13/16 08:00 96.9 89 17 135/70 92 10/13/16 04:26 16 10/13/16 04:01 97.1 84 18 165/77 95 10/12/16 23:57 97.8 88 20 155/75 93 10/12/16 20:48 18 10/12/16 20:00 96.2 88 20 161/83 97 10/12/16 16:00 96.0 91 17 129/70 96 10/12/16 14:00 16 10/12/16 12:00 97.7 97 16 129/64 94 I/O 10/12/16 10/12/16 10/12/16 10/13/16 10/13/16 10/13/16 07:00 15:00 23:00 07:00 15:00 23:00 Intake Total 1558 ml 720 ml 480 ml 2620 ml Output Total 350 ml 240 ml 2080 ml 106 ml Balance 1208 ml 480 ml -1600 ml 2514 ml Intake Oral 720 ml 720 ml 480 ml 320 ml IV Total 838 ml 2300 ml Output Urine Total 350 ml 2000 ml Drainage Total 240 ml 80 ml 106 ml # Voids 2 2 0 # Bowel Movements 0 0 0 Result Diagram: 10/13/1642410/13/16424 Imaging Last Impressions Chest X-Ray 10/10/162058 Signed Impressions: Service Date/Time: September 21:18 - CONCLUSION: Minimal left base atelectasis. Juan Benoit MD CT Angiography 10/10/162058 Signed Impressions: Service Date/Time: September 22:19 - CONCLUSION: No pulmonary embolus. Mild bibasilar atelectasis. Coronary artery calcification. Juan Benoit MD Abdomen/Pelvis CT 10/10/16 0000 Signed Impressions: Service Date/Time: September 22:19 - CONCLUSION: Acute cholecystitis with possible small stones. No evidence of ductal dilatation. Juan Benoit MD Objective Remarks GENERAL: NAD SKIN: Warm and dry. HEAD: Normocephalic. EYES: No scleral icterus. No injection or drainage. NECK: Supple, trachea midline. No JVD or lymphadenopathy. CARDIOVASCULAR: Regular rate and rhythm without murmurs, gallops, or rubs. RESPIRATORY: Breath sounds equal bilaterally. No accessory muscle use. GASTROINTESTINAL: Abdomen soft, non-tender, nondistended. inc c/d/i- PRATIMA drain in place MUSCULOSKELETAL: No cyanosis, or edema. BACK: Nontender without obvious deformity. No CVA tenderness. Procedures lap avery converted to open cystectomy 10/11/16 A/P Problem List: (1) Sepsis ICD Code: A41.9 Status: Acute (2) Acute cholecystitis ICD Code: K81.0 Status: Acute (3) Acute renal failure ICD Code: N17.9 Status: Acute (4) Borderline diabetes mellitus ICD Code: R73.03 Status: Acute Assessment and Plan 56-year-old male with Severe Sepsis: Resolved and currently on Azactam IV every 8 hours pending culture reports Acute cholecystitis: CT abdomen noted and reviewed by me with finding of Acute cholecystitis with possible small stones;s/p lap avery converted to open cholecystectomy 10/11/16. Currently on Azactam IV every 8 pending culture NTD. Continue with IV fluid, pain management accordingly Pleuritic chest pain: Resolved. CTA noted and reviewed by me without any PE, pleuritic chest pain now resolved and was most likely radiation from right upper quadrant associated with acute cholecystitis Acute renal failure: Prerenal, secondary to dehydration, continue IV fluid hydration and monitor BUN and creatinine. Avoid all nephrotoxic drugs. Borderline diabetes type 2: A1c 8.0, on sliding scale and more likely will be discharged home on metformin as well as basal insulin. Good glycemic control with NPH 70/30 10 units BID. Recommend outpatient evaluation from endocrinology GI prophylaxis: PPI DVT prophylaxis: Bilateral SCDs Problem Qualifiers (1) Sepsis: Qualified Code: A41.9 - Sepsis, due to unspecified organism Travon Daniels MD Oct 13, 2016 08:56
[2016-10-13] MEDS: SODIUM CHLORIDE 0.9% FLUSH 5 ML FLUSH FLUSH SCH ×2 (09:00→20:41)
[2016-10-13] MEDS: INSULIN HUMAN NPH/R 70/30 1,000 UNITS/10 ML VIAL SQ SCH ×2 (09:29→16:32)
[2016-10-13] MEDS: PANTOPRAZOLE SODIUM 40 MG VIAL IV PUSH SCH (09:29)
[2016-10-13] MEDS: LACTOBACILLUS ACIDOPHILUS TAB PO SCH ×2 (09:29→20:40)
[2016-10-13 12:00] VITALS: BP 164/77; PULSE 85; RESP 17; TEMP 98.4; O2SAT 95
--- NOTE | 2016-10-13 12:32 | HHI.PR ---
Subjective Subjective Notes DAILY PROGRESS NOTE FOR SURGICAL ATTENDING, DR. 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 pump Objective Vitals/I&O 10/12/16 10/12/16 10/13/16 15:00 23:00 07:00 Intake Total 720 ml 480 ml 2620 ml Output Total 240 ml 2080 ml 106 ml Balance 480 ml -1600 ml 2514 ml Intake Oral 720 ml 480 ml 320 ml IV Total 2300 ml Output Urine Total 2000 ml Drainage Total 240 ml 80 ml 106 ml # Voids 2 2 0 # Bowel Movements 0 0 0 Vital Signs Date Time Temp Pulse Resp B/P Pulse Ox O2 Delivery O2 Flow Rate FiO2 10/13/16 12:00 98.4 85 17 164/77 95 10/11/16 22:00 Nasal Cannula 2 Labs Laboratory Tests Test 10/13/16 04:25 White Blood Count 11.5 Red Blood Count 2.77 Hemoglobin 8.2 Hematocrit 24.1 Mean Corpuscular Volume 87.2 Mean Corpuscular Hemoglobin 29.5 Mean Corpuscular Hemoglobin 33.8 Concent Red Cell Distribution Width 13.8 Platelet Count 194 Mean Platelet Volume 7.7 Neutrophils (%) (Auto) 88.5 Lymphocytes (%) (Auto) 5.9 Monocytes (%) (Auto) 5.6 Eosinophils (%) (Auto) 0.0 Basophils (%) (Auto) 0.0 Neutrophils # (Auto) 10.2 Lymphocytes # (Auto) 0.7 Monocytes # (Auto) 0.6 Eosinophils # (Auto) 0.0 Basophils # (Auto) 0.0 CBC Comment DIFF FINAL Differential Comment Sodium Level 140 Potassium Level 4.1 Chloride Level 108 Carbon Dioxide Level 24.1 Anion Gap 8 Blood Urea Nitrogen 21 Creatinine 0.85 Estimat Glomerular Filtration 93 Rate Random Glucose 153 Calcium Level 7.5 Total Bilirubin 0.3 Aspartate Amino Transf 60 (AST/SGOT) Alanine Aminotransferase 75 (ALT/SGPT) Alkaline Phosphatase 107 Total Protein 5.4 Albumin 2.0 Lipase 39 Date/Time Procedure Status Source Growth 10/10/16 21:17 Aerobic Blood Culture - Preliminary Resulted Blood Peripheral NO GROWTH IN 3 DAYS 10/10/16 21:17 Anaerobic Blood Culture - Preliminary Resulted Blood Peripheral NO GROWTH IN 3 DAYS Radiology Last Impressions Chest X-Ray 10/10/162058 Signed Impressions: Service Date/Time: September 21:18 - CONCLUSION: Minimal left base atelectasis. Juan Benoit MD CT Angiography 10/10/162058 Signed Impressions: Service Date/Time: September 22:19 - CONCLUSION: No pulmonary embolus. Mild bibasilar atelectasis. Coronary artery calcification. Juan Benoit MD Abdomen/Pelvis CT 10/10/16 0000 Signed Impressions: Service Date/Time: September 22:19 - CONCLUSION: Acute cholecystitis with possible small stones. No evidence of ductal dilatation. 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 CLAYTON LAZCANO I agree with above assessment and plan. . I attest that I had a [id number] encounter with the patient on the same day, and personally performed and documented my assessment and findings in the medical record. The following services were provided during this hospital visit: Chart data review, vital sign assessments/reviewing monitor data Review of consultations notes if present. Medication orders/review and/or management Ordering and/or reviewing lab tests Ordering and/or interpreting/reviewing x-rays and/or diagnostic studies Care of the patient and discussion of the patient with the care team Documentation time To help prompt me to consider important information that might be impacting today's encounter and assessment, information from prior notes written by myself or my colleagues may have been "brought forward/copy and pasted" into today's note. Problem Qualifiers (1) Sepsis: Qualified Code: A41.9 - Sepsis, due to unspecified organism Clayton Lazcano MD Oct 13, 2016 12:32
[2016-10-13] MEDS: SODIUM CHLOR 0.9% 1000 ML INJ 1,000 ML IV SCH ×2 (15:29→20:41)
[2016-10-13 16:00] VITALS: BP 168/72; PULSE 87; RESP 18; TEMP 96.8; O2SAT 97
[2016-10-13 20:00] VITALS: BP 146/76; PULSE 82; RESP 18; TEMP 98.3; O2SAT 96
--- NOTE | 2016-10-13 22:33 | MP ---
cc: RUPERT ARGUETA MD DATE OF SURGERY October 11, 2016 PREOPERATIVE DIAGNOSIS Acute cholecystitis. POSTOPERATIVE DIAGNOSIS Acute gangrenous necrotic cholecystitis. SURGEON Dr. Rupert Argueta CEMENTER MACHINE APPLICATOR Dr. Ruben Schmitt due to the complex nature of the laparoscopic and open operative procedure it was necessary to have assistance by Dr. Schmitt for traction assist and camera control and suturing. PROCEDURE PERFORMED Laparoscopic cholecystectomy converted to open cholecystectomy. ANESTHESIA GETA. IV FLUIDS 4400 cc ESTIMATED BLOOD LOSS 600 cc. DRAINS A 10-Bermudian Margarito drain placed in right upper quadrant. COMPLICATIONS None. WOUND CLASSIFICATION contaminated. SPECIMENS Gallbladder. INDICATION The patient is a 56-year-old male who presented with 3-day onset of right upper quadrant abdominal pain. The patient stated pain got worse and had subjective fevers and came to the emergency department for further evaluation including CT scan showing acute cholecystitis. The patient with a white count of 28,000. Decision made for operative intervention including laparoscopic cholecystectomy. The procedure discussed with the patient in detail in regards to risks, benefits, alternatives, possible open cholecystectomy and possible drain placement. The patient stated understanding and would like to proceed with operative intervention. PROCEDURE IN DETAIL The patient was taken to the operating suite, placed in supine position. He was prepped and draped in usual sterile fashion after induction of general endotracheal anesthesia. Brief time-out done stating correct patient, procedure, surgical site and we were all in agreement with this. Attention first directed to the umbilicus where a stab evaristo incision was made. Veress needle placed. A saline drop test confirmed intra-abdominal placement. Abdomen insufflated to 15 mm pneumoperitoneum. The Veress needle traded for a 5-mm trocar. On cursory inspection no evidence of injury. Upon examination of the right upper quadrant there was noted to be omentum that had adhered very tightly to the right upper quadrant. Three other trocars placed, one 12 mm trocar, followed by two 5 mm right subcostal trocars. The patient placed in reverse Trendelenburg and air planed to the left. Meticulous dissection was done in order to visualize the gallbladder. Again significant omentum was noted to be intently adhered to the right upper quadrant. This was tediously dissected and on exposure of the gallbladder, the gallbladder was noted to be necrotic, gangrenous, and very, very hot friable and distended. At this point, decision was made for open conversion. Pneumoperitoneum removed. Trocars removed. A right subcostal incision was made 2 cm below the right subcostal margin. This was done with a 15 blade scalpel. Further dissection done with electric Bovie cautery through several layers of fascia and muscle. Once we entered the peritoneum Bookwalter self retractor device was placed. The gallbladder was exposed to the right upper quadrant. The gallbladder was identified and again noted be extremely distended, gangrenous and necrotic and friable. The gallbladder was mobilized in a dome down technique with blunt and digitation dissection and electro Bovie cautery. The incision was made on the fundus of gallbladder in order to completely drain the gallbladder of bile. The gallbladder was also partially transected in order to identify and view the tracking of the cystic duct as it went into the common bile duct. This was identified with some difficulty. Very difficult due to gangrenous necrotic tissue. Most of the adhesions were lysed around the gallbladder using electric Bovie cautery. Once the gallbladder was completely mobilized from the gallbladder fossa and necrotic adhesions removed from around the infundibulum to identify the cystic artery. Cystic artery was identified and two right angles were placed. Cystic artery transected and 2-0 Vicryl sutures were used for suture ligation of the cystic artery. Cystic duct was identified and gallbladder was transected from this with a right angle clamp. A 2-0 silk suture was used to ligate the cystic duct. The right upper quadrant was irrigated with multiple aliquots of normal saline. This was done until clear. The common bile duct was identified and noted to have no injury. Hemostasis was obtained at the gallbladder fossa with electro Bovie cautery. Lily was also placed in the right upper quadrant to assist in achieving hemostasis. Next a 10-Bermudian Dylon-Winslow drain was placed through a separate stab evaristo incision inferior to the right subcostal incision. This was secured in place with a 2-0 nylon. This was placed in the gallbladder fossa right upper quadrant. Next the layers of the abdominal wall were closed in two layers. A running single armed #1 PDS was used for the peritoneal strength layer and a #1 looped PDS was used in a running fashion for the second layer. The subcutaneous tissue was then irrigated again and laureen were used to approximate the incision. Telfa carlos manuel were placed. Sterile dressings placed. The patient tolerated procedure well. There were no operative complications. Lap and instrument counts were correct. The patient was extubated and taken stable to the PACU. FINDINGS Significantly distended, necrotic gallbladder. Multiple adhesions to the right upper quadrant. Gangrenous cholecystitis. MD VÍCTOR Peña/RACHEL /10:50 PM /10:12 PM LIBORIO
[2016-10-14] VITALS: BP 137/73; PULSE 69; RESP 20; TEMP 96.9; O2SAT 95
[2016-10-14 05:21] LABS: AUTOMATED NEUTROPHIL # 6.3 TH/MM3 (1.8-7.7); EOSINOPHIL # 0.1 TH/MM3 (0-0.4); EOSINOPHIL % 0.6 % (0.0-4.0); HEMATOCRIT 24.8 % (39.0-51.0); HEMO FLAGS DIFF FINAL; LYMPH % 15.1 % (9.0-44.0); LYMPHOCYTE # 1.3 TH/MM3 (1.0-4.8); MEAN CELL VOLUME 86.4 FL (80.0-100.0); MEAN CORPUSCULAR HEMOGLOBIN 29.7 PG (27.0-34.0); MEAN CORPUSCULAR HGB CONC 34.4 % (32.0-36.0); MONO % 8.9 % (0.0-8.0); NEUT % 75.4 % (16.0-70.0); PLATELET COUNT 223 TH/MM3 (150-450); RED BLOOD COUNT 2.87 MIL/MM3 (4.50-5.90); RED CELL DISTRIBUTION WIDTH 13.4 % (11.6-17.2); WHITE BLOOD COUNT 8.4 TH/MM3 (4.0-11.0)
[2016-10-14] MEDS: INSULIN ASPART SUPPLEMENTAL SCALE SQ SCH ×4 (05:55→19:50)
[2016-10-14] MEDS: SODIUM CHLOR 0.9% 1000 ML INJ 1,000 ML IV SCH (05:56)
[2016-10-14] MEDS: oxyCODONE/ACETAMINOPHEN 5 MG/325 MG TAB PO PRN (06:24)
[2016-10-14 08:00] VITALS: BP 106/57; PULSE 88; RESP 12; TEMP 97.1; O2SAT 93
[2016-10-14] MEDS: LACTOBACILLUS ACIDOPHILUS TAB PO SCH ×2 (08:35→19:49)
[2016-10-14] MEDS: SODIUM CHLORIDE 0.9% FLUSH 5 ML FLUSH FLUSH SCH ×2 (08:35→19:49)
[2016-10-14] MEDS: LEVOFLOXACIN 500 MG TAB PO SCH (08:35)
[2016-10-14] MEDS: PANTOPRAZOLE SOD 20 MG DELAYED RELEASE TAB PO SCH (08:35)
[2016-10-14] MEDS: INSULIN HUMAN NPH/R 70/30 1,000 UNITS/10 ML VIAL SQ SCH ×2 (08:36→17:01)
--- NOTE | 2016-10-14 09:15 | HHI.PR ---
Subjective Remarks Follow-up acute cholecystitis/status post lap converted to open cholecystectomy 10/12/16-patient seen and examined; denies any significant abdominal pain; ambulating without any significant pain. Tolerating current diet. Afebrile 10/13/16-patient seen and examined, blood glucose well controlled, afebrile and pain well tolerated. 10/14/16-patient seen and examined; stable and no complaint . Afebrile. Taking PO without any significant nausea or emesis Objective Vitals Vital Signs Date Time Temp Pulse Resp B/P Pulse Ox O2 Delivery O2 Flow Rate FiO2 10/14/16 00:00 96.9 69 20 137/73 95 10/13/16 20:00 98.3 82 18 146/76 96 10/13/16 16:00 96.8 87 18 168/72 97 10/13/16 12:00 98.4 85 17 164/77 95 I/O 10/13/16 10/13/16 10/13/16 10/14/16 10/14/16 10/14/16 07:00 15:00 23:00 07:00 15:00 23:00 Intake Total 2620 ml 720 ml 460 ml 2521 ml Output Total 106 ml 650 ml 470 ml 850 ml Balance 2514 ml 70 ml -10 ml 1671 ml Intake Oral 320 ml 720 ml 460 ml 480 ml IV Total 2300 ml 2041 ml Output Urine Total 600 ml 450 ml 800 ml Drainage Total 106 ml 50 ml 20 ml 50 ml # Voids 0 # Bowel Movements 0 0 0 0 Result Diagram: 10/14/16 0449 10/13/16 0425 Objective Remarks GENERAL: NAD SKIN: Warm and dry. HEAD: Normocephalic. EYES: No scleral icterus. No injection or drainage. NECK: Supple, trachea midline. No JVD or lymphadenopathy. CARDIOVASCULAR: Regular rate and rhythm without murmurs, gallops, or rubs. RESPIRATORY: Breath sounds equal bilaterally. No accessory muscle use. GASTROINTESTINAL: Abdomen soft, non-tender, nondistended. inc c/d/i- PRATIMA drain in place MUSCULOSKELETAL: No cyanosis, or edema. BACK: Nontender without obvious deformity. No CVA tenderness. Procedures lap avery converted to open cystectomy 10/11/16 A/P Problem List: (1) Sepsis ICD Code: A41.9 Status: Acute (2) Acute cholecystitis ICD Code: K81.0 Status: Acute (3) Acute renal failure ICD Code: N17.9 Status: Acute (4) Borderline diabetes mellitus ICD Code: R73.03 Status: Acute Assessment and Plan 56-year-old male with Severe Sepsis: Resolved and currently on Azactam IV every 8 hours pending culture reports Acute cholecystitis: CT abdomen noted and reviewed by me with finding of Acute cholecystitis with possible small stones;s/p lap avery converted to open cholecystectomy 10/11/16. Currently on Azactam IV every 8H and culture NTD referral was switched to by mouth Levaquin 500 mg daily 10/14/16. Continue with pain management accordingly and transition to by mouth narcotic Pleuritic chest pain: Resolved. CTA noted and reviewed by me without any PE, pleuritic chest pain now resolved and was most likely radiation from right upper quadrant associated with acute cholecystitis Acute renal failure: Prerenal, secondary to dehydration, resolved therefore will HLIV. Avoid all nephrotoxic drugs. Borderline diabetes type 2: A1c 8.0, on sliding scale and more likely will be discharged home on metformin as well as basal insulin. Good glycemic control with NPH 70/30 10 units BID. Recommend outpatient evaluation from endocrinology GI prophylaxis: PPI DVT prophylaxis: Bilateral SCDs Discharge Planning Likely discharge 10/15/16 Problem Qualifiers (1) Sepsis: Qualified Code: A41.9 - Sepsis, due to unspecified organism Travon Daniels MD Oct 14, 2016 09:15
[2016-10-14 12:00] VITALS: BP 111/56; PULSE 78; RESP 12; TEMP 97.3; O2SAT 94
--- NOTE | 2016-10-14 12:37 | HHI.PR ---
Subjective Subjective Notes Resting in bed Pain controlled Objective Vitals/I&O Vital Signs Date Time Temp Pulse Resp B/P Pulse Ox O2 Delivery O2 Flow Rate FiO2 10/14/16 08:00 97.1 88 12 106/57 93 10/11/16 22:00 Nasal Cannula 2 Labs Laboratory Tests Test 10/14/16 04:49 White Blood Count 8.4 Red Blood Count 2.87 Hemoglobin 8.5 Hematocrit 24.8 Mean Corpuscular Volume 86.4 Mean Corpuscular Hemoglobin 29.7 Mean Corpuscular Hemoglobin 34.4 Concent Red Cell Distribution Width 13.4 Platelet Count 223 Mean Platelet Volume 7.4 Neutrophils (%) (Auto) 75.4 Lymphocytes (%) (Auto) 15.1 Monocytes (%) (Auto) 8.9 Eosinophils (%) (Auto) 0.6 Basophils (%) (Auto) 0.0 Neutrophils # (Auto) 6.3 Lymphocytes # (Auto) 1.3 Monocytes # (Auto) 0.7 Eosinophils # (Auto) 0.1 Basophils # (Auto) 0.0 CBC Comment DIFF FINAL Differential Comment Date/Time Procedure Status Source Growth 10/10/16 21:17 Aerobic Blood Culture - Preliminary Resulted Blood Peripheral NO GROWTH IN 4 DAYS 10/10/16 21:17 Anaerobic Blood Culture - Preliminary Resulted Blood Peripheral NO GROWTH IN 4 DAYS Radiology Last Impressions Chest X-Ray 10/10/162058 Signed Impressions: Service Date/Time: September 21:18 - CONCLUSION: Minimal left base atelectasis. Juan Benoit MD CT Angiography 10/10/162058 Signed Impressions: Service Date/Time: September 22:19 - CONCLUSION: No pulmonary embolus. Mild bibasilar atelectasis. Coronary artery calcification. Juan Benoit MD Abdomen/Pelvis CT 10/10/16 0000 Signed Impressions: Service Date/Time: September 22:19 - CONCLUSION: Acute cholecystitis with possible small stones. No evidence of ductal dilatation. Juan Benoit MD Cardiovascular: Regular Lungs: Clear Abdomen: Other (RUQ---incision c/d/i--carlos manuel removed; PRATIMA with SS drainage ) Extremities: No edema A/P Problem List: (1) Acute cholecystitis (2) Sepsis (3) Borderline diabetes mellitus (4) S/P cholecystectomy Assessment and Plan 56 year old male POD3 open cholecystectomy for gangrenous gallbladder -Tolerating regular diet -Continue PO Levaquin -OOB and mobilize -Change dressing daily -Nursing staff to instruct patient on how to empty and care for PRATIMA -Anticipate DC tomorrow Attending Statement pt seen at bedside doing better pain better Attestation The exam, history, and the medical decision-making described in the above note were completed with the assistance of the mid-level provider. I reviewed and agree with the findings presented. I attest that I had a [id number] encounter with the patient on the same day, and personally performed and documented my assessment and findings in the medical record. Problem Qualifiers (1) Sepsis: Qualified Code: A41.9 - Sepsis, due to unspecified organism Kate Dinero Oct 14, 2016 12:37 Param Argueta MD Oct 19, 2016 21:21
[2016-10-14 16:00] VITALS: BP 117/61; PULSE 83; RESP 12; TEMP 97.1; O2SAT 97
[2016-10-14 20:00] VITALS: BP 134/69; PULSE 83; RESP 20; TEMP 98.1; O2SAT 96
[2016-10-15] VITALS: BP 128/70; PULSE 80; RESP 20; TEMP 97.3; O2SAT 95
[2016-10-15] MEDS: INSULIN ASPART SUPPLEMENTAL SCALE SQ SCH ×2 (05:15→10:46)
[2016-10-15] MEDS: oxyCODONE/ACETAMINOPHEN 5 MG/325 MG TAB PO PRN (05:15)
[2016-10-15 08:00] VITALS: BP 152/70; PULSE 78; RESP 17; TEMP 96.8; O2SAT 96
[2016-10-15] MEDS: LEVOFLOXACIN 500 MG TAB PO SCH (08:20)
[2016-10-15] MEDS: SODIUM CHLORIDE 0.9% FLUSH 5 ML FLUSH FLUSH SCH (08:20)
[2016-10-15] MEDS: PANTOPRAZOLE SOD 20 MG DELAYED RELEASE TAB PO SCH (08:20)
[2016-10-15] MEDS: LACTOBACILLUS ACIDOPHILUS TAB PO SCH (08:20)
[2016-10-15] MEDS: INSULIN HUMAN NPH/R 70/30 1,000 UNITS/10 ML VIAL SQ SCH (08:20)
--- NOTE | 2016-10-15 09:18 | HHI.PR ---
Subjective Subjective Notes Resting in bed Waiting for breakfast Wants to try to go home today Feels comfortable taking care of PRATIMA at home Objective Vitals/I&O Vital Signs Date Time Temp Pulse Resp B/P Pulse Ox O2 Delivery O2 Flow Rate FiO2 10/15/16 06:42 18 10/15/16 00:00 97.3 80 128/70 95 10/11/16 22:00 Nasal Cannula 2 Labs Date/Time Procedure Status Source Growth 10/10/16 21:17 Aerobic Blood Culture - Preliminary Resulted Blood Peripheral NO GROWTH IN 4 DAYS 10/10/16 21:17 Anaerobic Blood Culture - Preliminary Resulted Blood Peripheral NO GROWTH IN 4 DAYS Radiology Last Impressions Chest X-Ray 10/10/162058 Signed Impressions: Service Date/Time: September 21:18 - CONCLUSION: Minimal left base atelectasis. Juan Benoit MD CT Angiography 10/10/162058 Signed Impressions: Service Date/Time: September 22:19 - CONCLUSION: No pulmonary embolus. Mild bibasilar atelectasis. Coronary artery calcification. Juan Benoit MD Abdomen/Pelvis CT 10/10/16 0000 Signed Impressions: Service Date/Time: September 22:19 - CONCLUSION: Acute cholecystitis with possible small stones. No evidence of ductal dilatation. Juan Benoit MD Cardiovascular: Regular Lungs: Clear Abdomen: Other (RUQ incision ---dressing removed; inc c/d/i; PRATIMA with SS drainage ) Extremities: No edema A/P Problem List: (1) Acute cholecystitis (2) Sepsis (3) Borderline diabetes mellitus (4) S/P cholecystectomy Assessment and Plan 56 year old male POD4 open cholecystectomy for gangrenous gallbladder -Tolerating regular diet -Continue PO Levaquin -OOB and mobilize -Change dressing daily -Feels comfortable taking care of PRATIMA drain at home -GS clear for DC today -Antibiotic rx on chart -Work note in DC Attending Statement patient seen at bedside doing better no fevers d/c planning Attestation The exam, history, and the medical decision-making described in the above note were completed with the assistance of the mid-level provider. I reviewed and agree with the findings presented. I attest that I had a [id number] encounter with the patient on the same day, and personally performed and documented my assessment and findings in the medical record. Problem Qualifiers (1) Sepsis: Qualified Code: A41.9 - Sepsis, due to unspecified organism Kate Dinero Oct 15, 2016 09:18 Param Argueta MD Oct 19, 2016 21:23
[2016-10-15] MEDS ORDERED: LEVA500T PO (09:20)
[2016-10-15] MEDS ORDERED: POLYETHYLENE GLYCOL 17 GM PKG PO ONE (11:00)
[2016-10-15] MEDS ORDERED: DOCUSATE SODIUM 100 MG CAP PO ONE (11:00)
[2016-10-15] MEDS ORDERED: NOVOLOGSS SQ (11:15)
[2016-10-15] MEDS ORDERED: PERI8.6T PO (11:15)
[2016-10-15] MEDS ORDERED: NOVO7030P2 SQ (11:15)
[2016-10-15] MEDS ORDERED: OXYC1TAB63 PO (11:15)
[2016-10-15] MEDS ORDERED: INSU31MI31 (11:19)
[2016-10-15] MEDS ORDERED: BLOOD GLUCOSE T1 TES (11:19)
[2016-10-15] MEDS ORDERED: INSU-115 (11:19)
[2016-10-15] MEDS ORDERED: BLOOD GLUCOSE M1 KIT (11:19)
[2016-10-15] MEDS ORDERED: METF500T PO (11:36)
--- NOTE | 2016-10-15 11:38 | HHI.PR ---
Subjective Remarks Follow-up acute cholecystitis/status post lap converted to open cholecystectomy 10/12/16-patient seen and examined; denies any significant abdominal pain; ambulating without any significant pain. Tolerating current diet. Afebrile 10/13/16-patient seen and examined, blood glucose well controlled, afebrile and pain well tolerated. 10/14/16-patient seen and examined; stable and no complaint . Afebrile. Taking PO without any significant nausea or emesis 10/15/16-patient seen and examined; no complaints, afebrile, state is ready for discharge today. Objective Vitals Vital Signs Date Time Temp Pulse Resp B/P Pulse Ox O2 Delivery O2 Flow Rate FiO2 10/15/16 08:00 96.8 78 17 152/70 96 10/15/16 06:42 18 10/15/16 00:00 97.3 80 20 128/70 95 10/14/16 20:00 98.1 83 20 134/69 96 10/14/16 16:00 97.1 83 12 117/61 97 10/14/16 12:00 97.3 78 12 111/56 94 I/O 10/14/16 10/14/16 10/14/16 10/15/16 10/15/16 10/15/16 07:00 15:00 23:00 07:00 15:00 23:00 Intake Total 2521 ml 1100 ml 720 ml Output Total 850 ml 1575 ml 700 ml 1720 ml 450 ml Balance 1671 ml -475 ml 20 ml -1720 ml -450 ml Intake Oral 480 ml 700 ml 720 ml IV Total 2041 ml 400 ml Output Urine Total 800 ml 1500 ml 700 ml 1600 ml 450 ml Drainage Total 50 ml 75 ml 120 ml # Voids 2 # Bowel Movements 0 0 0 Result Diagram: 10/14/16 0449 10/13/16 0425 Imaging Last Impressions Chest X-Ray 10/10/162058 Signed Impressions: Service Date/Time: September 21:18 - CONCLUSION: Minimal left base atelectasis. Juan Benoit MD CT Angiography 10/10/162058 Signed Impressions: Service Date/Time: September 22:19 - CONCLUSION: No pulmonary embolus. Mild bibasilar atelectasis. Coronary artery calcification. Juan Benoit MD Abdomen/Pelvis CT 10/10/16 0000 Signed Impressions: Service Date/Time: September 22:19 - CONCLUSION: Acute cholecystitis with possible small stones. No evidence of ductal dilatation. Juan Benoit MD Objective Remarks GENERAL: NAD SKIN: Warm and dry. HEAD: Normocephalic. EYES: No scleral icterus. No injection or drainage. NECK: Supple, trachea midline. No JVD or lymphadenopathy. CARDIOVASCULAR: Regular rate and rhythm without murmurs, gallops, or rubs. RESPIRATORY: Breath sounds equal bilaterally. No accessory muscle use. GASTROINTESTINAL: Abdomen soft, non-tender, nondistended. inc c/d/i- PRATIMA drain in place MUSCULOSKELETAL: No cyanosis, or edema. BACK: Nontender without obvious deformity. No CVA tenderness. Procedures lap avery converted to open cystectomy 10/11/16 A/P Problem List: (1) Sepsis ICD Code: A41.9 Status: Acute (2) Acute cholecystitis ICD Code: K81.0 Status: Acute (3) Acute renal failure ICD Code: N17.9 Status: Acute (4) Borderline diabetes mellitus ICD Code: R73.03 Status: Acute Assessment and Plan 56-year-old male with Severe Sepsis: Resolved and s/p Azactam IV every 8 hours and culture reports NTD Acute cholecystitis: CT abdomen noted and reviewed by me with finding of Acute cholecystitis with possible small stones;s/p lap avery converted to open cholecystectomy 10/11/16. s/p Azactam IV every 8H and culture NTD referral was switched to by mouth Levaquin 500 mg daily 10/14/16. Continue with pain management accordingly and transition to by mouth narcotic Pleuritic chest pain: Resolved. CTA noted and reviewed by me without any PE, pleuritic chest pain now resolved and was most likely radiation from right upper quadrant associated with acute cholecystitis Acute renal failure: Prerenal, secondary to dehydration, resolved therefore will HLIV. Avoid all nephrotoxic drugs. Borderline diabetes type 2: A1c 8.0, on sliding scale and more likely will be discharged home on metformin as well as basal insulin. Good glycemic control with NPH 70/30 10 units BID. Recommend outpatient evaluation from endocrinology GI prophylaxis: PPI DVT prophylaxis: Bilateral SCDs Problem Qualifiers (1) Sepsis: Qualified Code: A41.9 - Sepsis, due to unspecified organism Travon Daniels MD Oct 15, 2016 11:38
--- NOTE | 2016-10-15 11:39 | HHI.DS ---
Discharge Summary Admission Date Oct 11, 2016 at 00:15 Discharge Date: Oct 15, 2016 Admitting Diagnosis sepsis, acute cholecystitis, dehydration (1) Sepsis ICD Code: A41.9 (2) Acute cholecystitis ICD Code: K81.0 (3) Acute renal failure ICD Code: N17.9 (4) Borderline diabetes mellitus ICD Code: R73.03 Procedures lap avery converted to open cystectomy 10/11/16 Brief History - From Admission 56-year-old male with a history of borderline diabetes presented to the ED and subsequently was admitted secondary to progressively worse right upper quadrant pain 3 days duration rated 9/10 in intensity with some pleuritic chest pain. Patient also complains of associated with nausea and vomiting made worse with deep breathing. Patient reported subjective fever however denies any cough production. CT abdomen positive for acute cholecystitis, abnormal labs include WBC 28.8, lactate acid 2.2, BUN/creatinine 33/1.77. Patient denies any GI bleeding, hematuria, hemoptysis or currently chest pain. CBC/BMP: 10/14/16 0449 10/13/16 0425 Significant Findings Laboratory Tests Test 10/13/16 10/14/16 04:25 04:49 White Blood Count 11.5 TH/MM3 (4.0-11.0) Red Blood Count 2.77 MIL/MM3 2.87 MIL/MM3 (4.50-5.90) (4.50-5.90) Hemoglobin 8.2 GM/DL 8.5 GM/DL (13.0-17.0) (13.0-17.0) Hematocrit 24.1 % 24.8 % (39.0-51.0) (39.0-51.0) Neutrophils (%) (Auto) 88.5 % 75.4 % (16.0-70.0) (16.0-70.0) Lymphocytes (%) (Auto) 5.9 % (9.0-44.0) Neutrophils # (Auto) 10.2 TH/MM3 (1.8-7.7) Lymphocytes # (Auto) 0.7 TH/MM3 (1.0-4.8) Chloride Level 108 MEQ/L (98-107) Blood Urea Nitrogen 21 MG/DL (7-18) Random Glucose 153 MG/DL (74-106) Calcium Level 7.5 MG/DL (8.5-10.1) Aspartate Amino Transf 60 U/L (15-37) (AST/SGOT) Total Protein 5.4 GM/DL (6.4-8.2) Albumin 2.0 GM/DL (3.4-5.0) Lipase 39 U/L (73-393) Monocytes (%) (Auto) 8.9 % (0.0-8.0) Imaging Last Impressions Chest X-Ray 10/10/162058 Signed Impressions: Service Date/Time: September 21:18 - CONCLUSION: Minimal left base atelectasis. Juan Benoit MD CT Angiography 10/10/162058 Signed Impressions: Service Date/Time: September 22:19 - CONCLUSION: No pulmonary embolus. Mild bibasilar atelectasis. Coronary artery calcification. Juan Benoit MD Abdomen/Pelvis CT 10/10/16 0000 Signed Impressions: Service Date/Time: September 22:19 - CONCLUSION: Acute cholecystitis with possible small stones. No evidence of ductal dilatation. Juan Benoit MD PE at Discharge GENERAL: NAD SKIN: Warm and dry. HEAD: Normocephalic. EYES: No scleral icterus. No injection or drainage. NECK: Supple, trachea midline. No JVD or lymphadenopathy. CARDIOVASCULAR: Regular rate and rhythm without murmurs, gallops, or rubs. RESPIRATORY: Breath sounds equal bilaterally. No accessory muscle use. GASTROINTESTINAL: Abdomen soft, non-tender, nondistended. inc c/d/i- PRATIMA drain in place MUSCULOSKELETAL: No cyanosis, or edema. BACK: Nontender without obvious deformity. No CVA tenderness. Hospital Course Severe Sepsis: Resolved and s/p Azactam IV every 8 hours and culture reports NTD Acute cholecystitis: CT abdomen with finding of Acute cholecystitis with possible small stones;s/p lap avery converted to open cholecystectomy 10/11/16. s/p Azactam IV every 8H and culture NTD referral was switched to by mouth Levaquin 500 mg daily 10/14/16. Pain management was provided accordingly Pleuritic chest pain: Resolved. CTA noted without any PE, pleuritic chest pain now resolved and was most likely radiation from right upper quadrant associated with acute cholecystitis Acute renal failure: Prerenal, secondary to dehydration, resolved therefore will HLIV. Avoid all nephrotoxic drugs. Borderline diabetes type 2: A1c 8.0, on sliding scale and patient is being discharged home on metformin as well as basal insulin. Good glycemic control with NPH 70/30 10 units BID. Recommend outpatient evaluation from endocrinology GI prophylaxis: PPI DVT prophylaxis: Bilateral SCDs Pt Condition on Discharge: Stable Discharge Disposition: Discharge Home Discharge Time: <= 30 minutes Discharge Instructions DIET: Follow Instructions for: Diabetic Diet Activities you can perform: Weight Bearing as Joseph Follow up Referrals: PCP Follow-up - 1 Week Surgical - 1 Week with Param Argueta MD New Medications: Blood Glucose Monitoring W/Device (Blood Glucose Monitoring W/Device) 1 Kit Kit 1 KIT .ROUTE DIRECTED Blood Sugar Management #1 Ref 0 KIT Blood Glucose Test Strips (Blood Glucose Test Strips) 1 Shari Shari 1 EA .ROUTE DIRECTED Blood Sugar Management #100 Ref 0 BOX [employer] Insulin Syringes/ 30G X 1/2" 0.5 ml ([employer] Insulin Syringes/ 30G X 1/2 " 0.5 ml) 1 Mis Mis 1 EA .ROUTE DIRECTED Blood Sugar Management #100 BOX Easy Comfort Pen [place] 31G X 5 mm (Easy Comfort Pen [place] 31G X 5 mm) 1 Mis Mis 1 BOX .ROUTE DIRECTED Blood Sugar Management #1 BOX Levofloxacin (Levaquin) 500 Mg Tab 500 MG PO DAILY Infection Days 7 Ref 0 TAB Metformin (Metformin) 500 Mg Tab 500 MG PO BIDPC With meals Blood Sugar Management #60 Ref 0 TAB Sennosides-Docusate Sodium (Nicole-Colace) 8.6-50 Mg Tab 1 TAB PO BID PRN Constipation #20 Ref 0 TAB Insulin Aspart Inj (Novolog Inj) 100 Unit/Ml Inj 1 UNITS SQ ACHS SLIDING SCALE Blood Sugar Management #1000 INJECTION Insulin Human Isophane-Regular 70-30 Inj (Novolin 70-30 Inj) 1,000 Unit/10 Ml Vial 10 UNITS SQ BID@08,17 Blood Sugar Management #1000 INJECTION Oxycodone-Acetaminophen (Oxycodone-Acetaminophen) 5-325 mg Tab 1 TAB PO Q4H PRN SEE LABEL COMMENTS #30 TAB Travon Daniels MD Oct 15, 2016 11:39
[2016-10-15 12:00] VITALS: BP 133/63; PULSE 84; RESP 16; TEMP 97.4; O2SAT 95
[2016-10-23] MEDS ORDERED: METF500T PO (09:12)
[2016-10-23] MEDS ORDERED: NOVOLOGSS SQ (09:12)
[2016-10-23] MEDS ORDERED: INSU-115 (09:12)
[2016-10-23] MEDS ORDERED: NOVO7030P2 SQ (09:12)
[2016-10-23] MEDS ORDERED: INSU31MI31 (09:12)
[2016-10-23] MEDS ORDERED: BLOOD GLUCOSE T1 TES (09:12)
[2017-01-20] MEDS ORDERED: METF500T PO (11:54)
[2017-01-20] MEDS ORDERED: AMLO5 PO (11:54)
== END 2016-10-15 16:07 | disposition home or self-care (01) | DRG 854 ==
LOC: NEPE 20:46 → NEDA 10-11 00:15 → N07B 10-11 01:22
PROVIDERS: ADMIT Hospitalist; ATTEND Hospitalist
PROC: 0FJ44ZZ Inspection of Gallbladder, Percutaneous Endoscopic Approach (ICD-10-PCS; 2016-10-11)
PROC: 0FT40ZZ Resection of Gallbladder, Open Approach (ICD-10-PCS; principal; 2016-10-11 18:09)
DX: A41.9 Sepsis, unspecified organism (principal); N17.9 Acute kidney failure, unspecified; K81.0 Acute cholecystitis; E11.65 Type 2 diabetes mellitus with hyperglycemia; E86.0 Dehydration; F12.90 Cannabis use, unspecified, uncomplicated; Z53.31 Laparoscopic surgical procedure converted to open procedure; Z83.3 Family history of diabetes mellitus; Z88.0 Allergy status to penicillin
CPT/HCPCS: 71010; 71275; 74177; 80048; 80053; 80076; 82550; 82805; 82948; 83036; 83605; 83690; 83735; 84484; 85025; 85610; 85730; 86850; 86900; 86901; 86920; 87040; 88304; 93005; 94150; 96361; 96365; 96374; 96375; 96376; C9113; J0131; J1100; J1815; J2250; J2270; J2370; J2405; J2710; J3010; J3370; J3480; J7030; J7040; J7050; J7120; Q9967

== ENCOUNTER 2016-12-22 22:35 | Inpatient (IN) | payer OTHER ==
[~2016-12-22] VITALS: Ht 172.7 cm; Wt 77.7 kg
[~2016-12-22 22:35] MED LIST: BLOOD GLUCOSE M1 KIT; BLOOD GLUCOSE T1 TES; INSU-115; INSU31MI31; LEVA500T PO; METF500T PO; NOVO7030P2 SQ; NOVOLOGSS SQ
[2016-12-22 22:37] VITALS: BP 127/59; PULSE 119; RESP 16; TEMP 100.4; O2SAT 98
[2016-12-23] VITALS (10 sets, daily range): BP systolic 120–159; BP diastolic 62–77; PULSE 83–108; RESP 16–20; TEMP 96.8–101.1; O2SAT 94–100
[2016-12-23] MEDS ORDERED: ACETAMINOPHEN 325 MG TAB PO ONE (01:30)
[2016-12-23 01:55] LABS: AUTOMATED NEUTROPHIL # 12.5 TH/MM3 (1.8-7.7); BASOPHIL % 0.3 % (0.0-2.0); EOSINOPHIL # 0.1 TH/MM3 (0-0.4); EOSINOPHIL % 0.3 % (0.0-4.0); HEMATOCRIT 32.6 % (39.0-51.0); HEMO FLAGS DIFF FINAL; LYMPH % 10.5 % (9.0-44.0); LYMPHOCYTE # 1.6 TH/MM3 (1.0-4.8); MEAN CELL VOLUME 84.7 FL (80.0-100.0); MEAN CORPUSCULAR HEMOGLOBIN 27.3 PG (27.0-34.0); MEAN CORPUSCULAR HGB CONC 32.2 % (32.0-36.0); NEUT % 79.9 % (16.0-70.0); PLATELET COUNT 401 TH/MM3 (150-450); RED BLOOD COUNT 3.85 MIL/MM3 (4.50-5.90); WHITE BLOOD COUNT 15.6 TH/MM3 (4.0-11.0)
--- NOTE | 2016-12-23 02:01 | RADRPT ---
EXAM DATE/TIME: 12/23/2016 01:56 [facility] COMPARISON: CHEST SINGLE AP, October 10, 2016, 21:18. INDICATIONS : Fever. MEDICAL HISTORY : Diabetes mellitus type II. SURGICAL HISTORY : None. ENCOUNTER: Initial ACUITY: 1 day PAIN SCORE: 0/10 LOCATION: Bilateral chest FINDINGS: A single view of the chest demonstrates the lungs to be symmetrically aerated without evidence of mas s, infiltrate or effusion. The cardiomediastinal contours are unremarkable. Osseous structures are intact. CONCLUSION: No acute disease. Juan Garza MD on December 23, 2016 at 1:59 Board Certified Radiologist. This report was verified electronically.
[2016-12-23 02:05] LABS: APTT (PATIENT) 31.5 SEC (24.3-30.1); PROTHROMBIN TIME - PATIENT 10.7 SEC (9.8-11.6)
[2016-12-23] MEDS ORDERED: ceFAZolin 2 GM PREMIX 50 ML IV ONE (02:15)
[2016-12-23] MEDS ORDERED: VANCOMYCIN INJ 1,000 MG in SODIUM CHLOR 0.9% 250 ML INJ 250 ML IV ONE (02:15)
[2016-12-23] MEDS ORDERED: SODIUM CHLOR 0.9% 1000 ML INJ 1,000 ML IV ONE ×2 (02:15→04:15)
[2016-12-23 02:21] LABS: ALT (GPT) 15 U/L (12-78); ANION GAP 6 MEQ/L (5-15); AST (GOT) 15 U/L (15-37); BICARBONATE 31.8 MEQ/L (21.0-32.0); BLOOD UREA NITROGEN 25 MG/DL (7-18); CHLORIDE 95 MEQ/L (98-107); GLOMERULAR FILTRATION RATE 55 ML/MIN (>89); MAGNESIUM 2.3 MG/DL (1.5-2.5); POTASSIUM 4.5 MEQ/L (3.5-5.1); SODIUM (NA) 133 MEQ/L (136-145)
[2016-12-23 02:29] LABS: ALKALINE PHOSPHATASE 150 U/L (45-117); TOTAL BILIRUBIN ADULT 0.3 MG/DL (0.2-1.0)
[2016-12-23 02:33] LABS: CREATINE KINASE 39 U/L (39-308)
--- NOTE | 2016-12-23 03:25 | PD ---
HPI Chief Complaint: Pain: Acute or Chronic Time Seen by Provider: 00:57 Travel History International Travel<30 days: No Contact w/Intl Traveler<30days: No Traveled to known affect area: No History of Present Illness HPI The patient is a 56 year old male who presents to the [facility] emergency department with a history of coming home from work and noticing approximately 4 weeks ago a blister on the bottom of the foot. He believes that it was related to his sock being folded over an issue. The patient reports that subsequent to that approximately 2 weeks ago he began to have increased swelling and tenderness along the plantar surface of the foot. He reports that he began to have new vesicles that formed with skin breakdown along the bottom of his foot. He reports that today he began to have a fever. He is unsure how high his he does not have a thermometer at home. The patient reports that his blood sugar prior to arrival was 140. The patient denies having a primary care physician. The patient denies any recent cough, congestion, neck pain, chest pain, shortness of breath, abdominal pain, vomiting, diarrhea, urinary symptoms, or neurologic symptoms. [facility] Past Medical History Narrative Medical The patient's past medical history is significant for diabetes mellitus, sciatica. Cancer: No Cardiovascular Problems: No Diabetes: Yes Patient Takes Glucophage: Yes Genitourinary: No Immune Disorder: No Musculoskeletal: No Neurologic: Yes (sciatica issues ) Psychiatric: No Reproductive: No Respiratory: No Tetanus Vaccination: > 5 Years Influenza Vaccination: No Past Surgical History Narrative Surgical The patient's past surgical history is significant for cholecystectomy, eye surgery Cholecystectomy: Yes Eye Surgery: Yes (reteniopathy and cataract sx ) Other Surgery: Yes (reteniopathy and cataract sx ) Social History Alcohol Use: Yes (OCC) Tobacco Use: No Substance Use: No Allergies-Medications (Allergen,Severity, Reaction): Coded Allergies: Penicillin (Verified Allergy, Unknown, 12/23/16) Reported Meds & Prescriptions Reported Meds & Active Scripts Active Metformin (Metformin HCl) 500 Mg Tab 500 Mg PO BIDPC With meals Easy Comfort Pen [place] 31G X 5 mm 1 Mis Mis 1 Box .ROUTE DIRECTED [employer] Insulin Syringes/ 30G X 1/2" 0.5 ml 1 Mis Mis 1 Ea .ROUTE DIRECTED Blood Glucose Test Strips 1 Shari Shari 1 Ea .ROUTE DIRECTED Novolin 70-30 Inj (Insulin Human Isoph/Insulin Regular) 1,000 Unit/10 Ml Vial 10 Units SQ BID@08,17 Novolog Inj (Insulin Aspart) 100 Unit/Ml Inj 1 Units SQ ACHS SLIDING SCALE 30 Days Blood Glucose Monitoring W/Device (Device) 1 Kit Kit 1 Kit .ROUTE DIRECTED Review of Systems General / Constitutional: Positive: Fever Eyes: No: Visual changes HENT: No: Headaches, Congestion Cardiovascular: No: Chest Pain or Discomfort Respiratory: No: Cough, Shortness of Breath Gastrointestinal: Positive: Loss of Appetite, No: Nausea, Vomiting, Diarrhea, Abdominal Pain Genitourinary: No: Dysuria Musculoskeletal: Positive: Myalgias, Arthralgias, Edema, Pain Skin: Positive Other (skin breakdown on the bottom of the right foot), No Rash Neurologic: No: Weakness, Focal Abnormalities, Change in Mentation, Slurred Speech, Sensory Disturbance Psychiatric: No: Depression Endocrine: No: Polydipsia Hematologic/Lymphatic: No: Easy Bruising Physical Exam Narrative General: The patient is a well-developed well-nourished male in no acute distress. Head and Neck exam: Head is normocephalic atraumatic. Eyes: EOMI, pupils are equal round and reactive to light. Nose: Midline septum with pink mucous membranes Mouth: Dentition unremarkable. Moist mucus membranes. Posterior oropharynx is not erythematous. No tonsillar hypertrophy. Uvula midline. Airway patent. Neck: No palpable lymphadenopathy. No nuchal rigidity. No thyromegaly. Cardiovascular: Sinus tachycardia in the low 100s without murmurs, gallops, or rubs. No pulse deficit to the extremities and simultaneous auscultation and palpation of his radial artery. Lungs: Clear to auscultation bilaterally. No wheezes, rhonchi, or rales. Abdomen: Soft, without tenderness to palpation in all 4 quadrants of the abdomen. No guarding, rebound, or rigidity. Normal bowel sounds are audible. No tenderness on palpation of McBurney's point. Extremities: No clubbing, cyanosis, or edema. 2+ pulses in all 4 extremities. No calf tenderness on palpation. The area of interest is the right lower extremity. The patient on examination of the bottom of the right foot is noted to have an area of skin breakdown that is approximately 8 cm in greatest dimension by 2.5 x 3 cm. There is surrounding erythema that extends to have all the base of the second digit. There is tenderness on palpation of the site. There is vesicle formation. Back: No spinous process tenderness to palpation. No costovertebral angle tenderness to palpation. Neurologic Exam: Grossly nonfocal. Skin Exam: No other rashes noted. Data Data Last Documented VS Vital Signs Date Time Temp Pulse Resp B/P Pulse Ox O2 Delivery O2 Flow Rate FiO2 12/23/16 03:00 98.6 94 16 136/74 100 Room Air Orders Complete Blood Count With Diff (12/23/16:) Comprehensive Metabolic Panel (12/23/16:) Creatine Kinase (Cpk) (12/23/16) Ckmb (Isoenzyme) Profile (12/23/16) Troponin I (12/23/16) B-Type Natriuretic Peptide (12/23/16:) Prothrombin Time / Inr (Pt) (12/23/16) Act Partial Throm Time (Ptt) (12/23/16:) Blood Culture (12/23/16:) C-Reactive Protein (Crp) (12/23/16:) Lipase (12/23/16:) Urinalysis - C+S If Indicated (12/23/16:) Magnesium (Mg) (12/23/16:) Wound Culture And Gram Stain (12/23/16:) Chest, Single Ap (12/23/16:) Iv Access Insert/Monitor (12/23/16:) Ecg Monitoring (12/23/16:) Oximetry (12/23/16:29) Lactic Acid Sepsis Protocol (12/23/16:29) Acetaminophen (Tylenol) (12/23/16 01:30) Cefazolin 2 Gm Premix (Ancef 2 Gm Premix (12/23/16 02:15) Vancomycin Inj (Vancomycin Inj) (12/23/16 02:15) Sodium Chlor 0.9% 1000 Ml Inj (Ns 1000 M (12/23/16 02:15) Foot, Complete ([id number]) (12/23/16 ) Admit Order (Ed Use Only) (12/23/16 04:06) Sodium Chlor 0.9% 1000 Ml Inj (Ns 1000 M (12/23/16 04:15) Labs Laboratory Tests Test 12/23/16 12/23/16 01:00 01:40 White Blood Count 15.6 TH/MM3 Red Blood Count 3.85 MIL/MM3 Hemoglobin 10.5 GM/DL Hematocrit 32.6 % Mean Corpuscular Volume 84.7 FL Mean Corpuscular Hemoglobin 27.3 PG Mean Corpuscular Hemoglobin 32.2 % Concent Red Cell Distribution Width 13.0 % Platelet Count 401 TH/MM3 Mean Platelet Volume 7.2 FL Neutrophils (%) (Auto) 79.9 % Lymphocytes (%) (Auto) 10.5 % Monocytes (%) (Auto) 9.0 % Eosinophils (%) (Auto) 0.3 % Basophils (%) (Auto) 0.3 % Neutrophils # (Auto) 12.5 TH/MM3 Lymphocytes # (Auto) 1.6 TH/MM3 Monocytes # (Auto) 1.4 TH/MM3 Eosinophils # (Auto) 0.1 TH/MM3 Basophils # (Auto) 0.0 TH/MM3 CBC Comment DIFF FINAL Differential Comment Prothrombin Time 10.7 SEC Prothromb Time International 1.0 RATIO Ratio Activated Partial 31.5 SEC Thromboplast Time Sodium Level 133 MEQ/L Potassium Level 4.5 MEQ/L Chloride Level 95 MEQ/L Carbon Dioxide Level 31.8 MEQ/L Anion Gap 6 MEQ/L Blood Urea Nitrogen 25 MG/DL Creatinine 1.33 MG/DL Estimat Glomerular Filtration 55 ML/MIN Rate Random Glucose 242 MG/DL Calcium Level 9.3 MG/DL Magnesium Level 2.3 MG/DL Total Bilirubin 0.3 MG/DL Aspartate Amino Transf 15 U/L (AST/SGOT) Alanine Aminotransferase 15 U/L (ALT/SGPT) Alkaline Phosphatase 150 U/L Total Creatine Kinase 39 U/L Troponin I LESS THAN 0.02 NG/ML C-Reactive Protein 19.80 MG/DL B-Type Natriuretic Peptide 84 PG/ML Total Protein 7.7 GM/DL Albumin 3.0 GM/DL Lipase 134 U/L Lactic Acid Level 0.9 mmol/L MDM Medical Decision Making Medical Screen Exam Complete: Yes Emergency Medical Condition: Yes Medical Record Reviewed: Yes Interpretation(s) Last Impressions Chest X-Ray 12/23/16 0129 Signed Impressions: Service Date/Time: Friday, December 23, 2016 01:56 - CONCLUSION: No acute disease. Juan Garza MD Foot X-Ray 12/23/16 0000 Signed Impressions: Service Date/Time: Friday, December 23, 2016 03:46 - CONCLUSION: No definite acute bony findings Juan Garza MD Differential Diagnosis Cellulitis, versus plantar fasciitis, versus MRSA skin infection, versus sepsis , versus osteomyelitis Narrative Course During the course of the patients emergency department visit, the patients history, examination, and differential diagnosis were reviewed with the patient. The patient had IV access obtained and blood work sent for analysis. The patient was placed on a radiographer cardiac catheterization with oximetry and blood pressure monitoring. The patient was initially provided Ancef 2 g IV, vancomycin 1 g IV, acetaminophen 650 by mouth 1 for fever, normal saline 1 L IV fluid bolus. The patients laboratory studies were reviewed and remarkable for a white count of 15.6, hemoglobin 10.5, platelets 401 with 79.9 neutrophils, 9 monocytes, CMP is remarkable for sodium of 133, chloride 95, BUN 25, creatinine 1.33, glucose 242, alkaline phosphatase 150, CPK is 39, troponin I less than 0.02, C-reactive protein is 19.8, BNP is 84, lipase 134, lactic acid 0.9, PT 10.7, PTT 31.5 Radiology studies were reviewed and remarkable for a chest x-ray that shows no acute abnormality. A foot x-ray shows no acute abnormality. The patients results were discussed with the patient, including the plan of care. I explained that further testing and/ or monitoring is indicated based on the patients history, examination, and/ or laboratory findings. Therefore, I recommended admission for additional evaluation. The patient expressed understanding and was agreeable with this plan. The patient was admitted to the hospital in stable condition and [facility] Sepsis Criteria SIRS Criteria (2 or more): Heart rate over 90, WBC > 55756, < 4000 or > 10% bands Sepsis Criteria (SIRS+source): Infect source susp/known Physician Communication Physician Communication The Patient states was discussed with Dr. Spencer who did agree to admit the patient for further evaluation and treatment at this time. Diagnosis Primary Impression: Foot ulcer due to secondary DM Additional Impressions: Cellulitis Qualified Code: L03.115 - Cellulitis of right lower extremity SIRS (systemic inflammatory response syndrome) Admitting Information Admitting Physician Requests: Admit Vaishnavi Gallagher MD December 23, 2016 03:25
[2016-12-23] MEDS ORDERED: GLUCAGON 1 MG/ML VIAL OTHER PRN (04:15)
[2016-12-23] MEDS ORDERED: SENNOSIDES 8.6 MG TAB PO PRN (04:15)
[2016-12-23] MEDS ORDERED: Vancomycin Consult Pharmacy 1 EA OTHER SCH (04:15)
[2016-12-23] MEDS ORDERED: MAGNESIUM HYDROXIDE SUSP 30 ML CUP PO PRN (04:15)
[2016-12-23] MEDS ORDERED: DEXTROSE 50% IN WATER 50 ML VIAL(D50) IV PRN (04:15)
[2016-12-23] MEDS ORDERED: ONDANSETRON HCL 4 MG/2 ML VIAL IVP PRN (04:15)
[2016-12-23] MEDS ORDERED: BISACODYL 10 MG SUPP RECTAL PRN (04:15)
[2016-12-23] MEDS ORDERED: LACTULOSE SYRUP 20 GM/30 ML CUP PO PRN (04:15)
--- NOTE | 2016-12-23 04:52 | HHI.HP ---
[facility] No Primary Care Physician Admission Diagnosis right foot infection, sepsis Diagnoses: (1) Sepsis Diagnosis: Principal (2) Cellulitis Diagnosis: Principal (3) CESAR (acute kidney injury) Diagnosis: Principal (4) DM (diabetes mellitus) Diagnosis: Principal Travel History International Travel<30 Days: No Contact w/Intl Traveler <30 Da: No Traveled to Known Affected Are: No History of Present Illness This is a 56-year-old male with a PMH of HTN and DM who presented to the ER with complaints of right foot infection x1 month. States noticed blister on his foot approx 1 month ago which has gotten progressively worse. Today w/ subjective fever and worsening pain at which time he presented to the ER. On arrival, BP 127/59, HR 119, O2 sat 98% on RA, Temp 100.4. WBC 15.6. Creatinine 1.33, previously 0.85 on 10/13/16. BS 242. Lactic Acid 0.9. INR 1.0. CXR with no acute findings. Foot X-ray with no evidence of osteomyelitis. S/p Blood/Wound Cultures, Vanc/Ancef in ER. Review of Systems Except as stated in HPI: all other systems reviewed are Neg ROS: 14 point review of systems otherwise negative. Past Family Social History Past Medical History PMH: HTN and DM Past Surgical History PAST SURGICAL HISTORY: Cataract Surgery, Cholecystectomy Allergies: Coded Allergies: Penicillin (Verified Allergy, Unknown, 12/23/16) Family History PAST FAMILY HISTORY: Reviewed. No h/o DM or CAD Social History PAST SOCIAL HISTORY: Occasional alcohol. Negative for tobacco or drugs. Physical Exam Vital Signs Vital Signs Date Time Temp Pulse Resp B/P Pulse Ox O2 Delivery O2 Flow Rate FiO2 12/23/16 03:00 98.6 94 16 136/74 100 Room Air 12/23/16 02:00 99 16 131/71 100 Room Air 12/23/16 01:00 108 16 135/68 100 Room Air 12/23/16 00:48 105 16 137/67 100 Room Air 12/22/16 22:37 100.4 119 16 127/59 98 Room Air Physical Exam PE: GENERAL: Middle-aged male in no acute distress. HEENT: PERRLA, EOMI. No scleral icterus or conjunctival pallor. No lid lag or facial droop. CARDIOVASCULAR: Regular rate and rhythm. No obvious murmurs to auscultation. No chest tenderness to palpation. RESPIRATORY: No obvious rhonchi or wheezing. Clear to auscultation. Breath sounds equal bilaterally. GASTROINTESTINAL: Abdomen soft, non-tender, nondistended. BS normal. MUSCULOSKELETAL: Extremities without clubbing, cyanosis, or edema. No obvious deformities. +lesion to plantar aspect of right foot, +drainage, mild surrounding erythema/edema. NEUROLOGICAL: Awake, alert and oriented x4. No focal neurologic deficits. Moving both upper and lower extremities spontaneously. Laboratory Laboratory Tests Test 12/23/16 12/23/16 01:00 01:40 White Blood Count 15.6 Red Blood Count 3.85 Hemoglobin 10.5 Hematocrit 32.6 Mean Corpuscular Volume 84.7 Mean Corpuscular Hemoglobin 27.3 Mean Corpuscular Hemoglobin 32.2 Concent Red Cell Distribution Width 13.0 Platelet Count 401 Mean Platelet Volume 7.2 Neutrophils (%) (Auto) 79.9 Lymphocytes (%) (Auto) 10.5 Monocytes (%) (Auto) 9.0 Eosinophils (%) (Auto) 0.3 Basophils (%) (Auto) 0.3 Neutrophils # (Auto) 12.5 Lymphocytes # (Auto) 1.6 Monocytes # (Auto) 1.4 Eosinophils # (Auto) 0.1 Basophils # (Auto) 0.0 CBC Comment DIFF FINAL Differential Comment Prothrombin Time 10.7 Prothromb Time International 1.0 Ratio Activated Partial 31.5 Thromboplast Time Sodium Level 133 Potassium Level 4.5 Chloride Level 95 Carbon Dioxide Level 31.8 Anion Gap 6 Blood Urea Nitrogen 25 Creatinine 1.33 Estimat Glomerular Filtration 55 Rate Random Glucose 242 Calcium Level 9.3 Magnesium Level 2.3 Total Bilirubin 0.3 Aspartate Amino Transf 15 (AST/SGOT) Alanine Aminotransferase 15 (ALT/SGPT) Alkaline Phosphatase 150 Total Creatine Kinase 39 Troponin I LESS THAN 0.02 C-Reactive Protein 19.80 B-Type Natriuretic Peptide 84 Total Protein 7.7 Albumin 3.0 Lipase 134 Lactic Acid Level 0.9 Date/Time Procedure Status Source Growth 12/23/16 01:40 Aerobic Blood Culture Received Blood Peripheral Pending 12/23/16 01:40 Anaerobic Blood Culture Received Blood Peripheral Pending 12/23/16 01:00 Gram Stain Received Wound Foot Pending 12/23/16 01:00 Wound Culture Received Wound Foot Pending Result Diagram: 12/23/16 0100 12/23/16 0100 Assessment and Plan Problem List: (1) Sepsis ICD Code: A41.9 Status: Acute (2) Cellulitis ICD Code: L03.90 Status: Acute (3) CESAR (acute kidney injury) ICD Code: N17.9 Status: Acute (4) DM (diabetes mellitus) ICD Code: E11.9 Status: Acute Assessment and Plan A/P: 1. Sepsis: Temp 100.4, HR 119, WBC 15.6, Source-Right Foot Infection. S/p Wound/Blood Cultures, Vanc/Ancef in ER. Follow up cultures, continue IV Abx. 2. Right Foot Cellulitis: +ongoing cellulitis to right foot, follow up wound cultures. Consult Wound Management for further evaluation. Foot X-ray w/ no obvious osteomyelitis, pending official report, images reviewed by me. 3. CESAR: Creatinine 1.33, previously 0.85 on 10/13/16. Check U/a, IVF for hydration, repeat labs in am. 4. DM: Recent diagnosis of DM on previous admit, Hgb A1c 8.0 on 10/10/16. Hold Metformin in light of sepsis and renal insufficiency. Sliding scale w/ Accu-Cheks. 5. DVT Prophylaxis: Heparin sq 6. Social work for d/c planning as needed. 7. Case discussed at length w/ ER physician. Physician Certification 2 Midnight Certification Type: Admission for Inpatient Services Order for Inpatient Services The services are ordered in accordance with Medicare regulations or non- Medicare payer requirements, as applicable. In the case of services not specified as inpatient-only, they are appropriately provided as inpatient services in accordance with the 2-midnight benchmark. Estimated LOS (days): 2 days is the estimated time the patient will need to remain in the hospital, assuming treatment plan goals are met and no additional complications. Post-Hospital Plan: Not yet determined Problem Qualifiers (1) Cellulitis: Qualified Code: L03.115 - Cellulitis of right lower extremity Ese Spencer MD December 23, 2016 04:52
--- NOTE | 2016-12-23 05:00 | RADRPT ---
EXAM DATE/TIME: 12/23/2016 03:46 [place] COMPARISON: No previous studies available for comparison. INDICATIONS : Large diabetic ulcer bottom of right foot. Swelling. MEDICAL HISTORY : Diabetes mellitus type II. SURGICAL HISTORY : None. ENCOUNTER: Initial ACUITY: 4 - 6 days PAIN SCORE: 7/10 LOCATION: Right lateral FINDINGS: There is no evidence of fracture, dislocation or bony destruction. Normalization is grossly normal. N o significant articular abnormalities are appreciated. There are prominent vascular calcifications in the soft tissues. CONCLUSION: No definite acute bony findings Juan Garza MD on December 23, 2016 at 4:57 Board Certified Radiologist. This report was verified electronically.
[2016-12-23 05:39] LABS: BLOOD, URINE NEG (NEG); COMMENT (UR) CULT NOT INDICATED; CULTURE IF INDICATED CULT NOT INDICATED; GLUCOSE,URINE 1000 mg/dL (NEG); KETONE, URINE NEG (NEG); MUCUS URINE FEW /lpf (OCC); NITRITE,URINE NEG (NEG); PH, URINE 5.5 (5.0-8.5); URINE COLOR YELLOW (YELLW/STRAW)
[2016-12-23] MEDS: SODIUM CHLOR 0.9% 1000 ML INJ 1,000 ML IV SCH ×3 (05:47→22:37)
[2016-12-23] MEDS: INSULIN ASPART SUPPLEMENTAL SCALE SQ SCH ×4 (06:00→21:44)
[2016-12-23] MEDS: HEPARIN SODIUM - SQ 10,000 UNITS/ML VIAL SQ SCH ×2 (08:21→21:38)
[2016-12-23] MEDS: DOCUSATE SODIUM 50 MG/SENNA 8.6 MG TAB PO SCH ×2 (08:21→21:00)
[2016-12-23] MEDS: SODIUM CHLORIDE 0.9% FLUSH 10 ML FLUSH IV FLUSH SCH ×2 (08:21→21:45)
[2016-12-23] MEDS: VANCOMYCIN 1,500 MG/NS 500 ML IV SCH ×2 (15:42)
--- NOTE | 2016-12-23 16:51 | PD.CONS ---
History of Present Illness Service Podiatry Consult Requested By ED Reason for Consult Foot infection Primary Care Physician No Primary Care Physician Diagnoses: History of Present Illness This is a 56-year-old male with a PMH of HTN and DM who presented to the ER with complaints of right foot infection x1 month. States noticed blister on his foot approx 1 month ago which has gotten progressively worse and says he has had fever and pain. Past Family Social History Allergies: Coded Allergies: Penicillin (Verified Allergy, Unknown, 12/23/16) Past Medical History HTN and DM Past Surgical History Cataract Surgery, Cholecystectomy Active Ordered Medications Current Medications Medications (Trade) Dose Ordered Sig/Hue Route Start Time Stop Time Status Last Admin Pharmacy Profile Note 0 ml @ 0 mls/hr UNSCH OTHER 12/23/16 04:15 (Ancef Inj/NS Inj) 100 ml @ 200 mls/hr Q8H IV 12/23/16 10:00 12/23/16 10:06 (D50w (Vial) Inj) 50 ml UNSCH PRN IV 12/23/16 04:15 Glucagon 1 mg 1 mg UNSCH PRN OTHER 12/23/16 04:15 (NS 1000 ml Inj) 1,000 ml @ 100 mls/hr Q10H IV 12/23/16 04:11 12/23/16 08:21 (NS Flush) 2 ml UNSCH PRN IV FLUSH 12/23/16 04:15 (NS Flush) 2 ml BID IV FLUSH 12/23/16 09:00 12/23/16 08:21 (Zofran Inj) 4 mg Q6H PRN IVP 12/23/16 04:15 (Heparin Inj) 5,000 units Q12H SQ 12/23/16 09:00 12/23/16 08:21 (Tylenol) 650 mg Q6H PRN PO 12/23/16 04:15 (Douglas 5-325 Mg) 1 tab Q4H PRN PO 12/23/16 04:15 (Morphine Inj) 2 mg Q3H PRN IV 12/23/16 04:15 (Nicole-Colace) 1 tab BID PO 12/23/16 09:00 12/23/16 08:21 (Milk Of Magnesia Liq) 30 ml Q12H PRN PO 12/23/16 04:15 (Senokot) 17.2 mg Q12H PRN PO 12/23/16 04:15 (Dulcolax Supp) 10 mg DAILY PRN RECTAL 12/23/16 04:15 Lactulose 30 ml 30 ml DAILY PRN PO 12/23/16 04:15 (Vancomycin Inj/ NS 500 ml Inj) 515 ml @ 257.5 mls/ hr Q18H IV 12/23/16 15:00 12/23/16 15:42 Miscellaneous Information SPECIFIC LAB TO BE DRAWN:VANCOMYCIN TROUGH DATE TO... ONCE ONCE .XX 12/25/16 02:45 12/25/16 02:46 Family History Reviewed. No h/o DM or CAD Social History Occasional alcohol. Denies smoking/drugs Physical Exam Vital Signs Vital Signs Date Time Temp Pulse Resp B/P Pulse Ox O2 Delivery O2 Flow Rate FiO2 12/23/16 12:00 97.1 84 17 128/64 98 12/23/16 08:00 97.2 83 17 120/62 98 12/23/16 05:57 96.8 87 18 126/68 99 12/23/16 03:00 98.6 94 16 136/74 100 Room Air 12/23/16 02:00 99 16 131/71 100 Room Air 12/23/16 01:00 108 16 135/68 100 Room Air 12/23/16 00:48 105 16 137/67 100 Room Air 12/22/16 22:37 100.4 119 16 127/59 98 Room Air Physical Exam R plantar arch with erythema and full thickness ulceration sub 2nd metatarsal head. No active purulence noted at this time. Significant pain to palpation from 2nd metatarsal head to plantar arch areas. Minimal edema noted. Palpable pulses. Light touch sensation diminished. Laboratory Laboratory Tests Test 12/23/16 12/23/16 12/23/16 01:00 01:40 05:33 White Blood Count 15.6 Red Blood Count 3.85 Hemoglobin 10.5 Hematocrit 32.6 Mean Corpuscular Volume 84.7 Mean Corpuscular Hemoglobin 27.3 Mean Corpuscular Hemoglobin 32.2 Concent Red Cell Distribution Width 13.0 Platelet Count 401 Mean Platelet Volume 7.2 Neutrophils (%) (Auto) 79.9 Lymphocytes (%) (Auto) 10.5 Monocytes (%) (Auto) 9.0 Eosinophils (%) (Auto) 0.3 Basophils (%) (Auto) 0.3 Neutrophils # (Auto) 12.5 Lymphocytes # (Auto) 1.6 Monocytes # (Auto) 1.4 Eosinophils # (Auto) 0.1 Basophils # (Auto) 0.0 CBC Comment DIFF FINAL Differential Comment Prothrombin Time 10.7 Prothromb Time International 1.0 Ratio Activated Partial 31.5 Thromboplast Time Sodium Level 133 Potassium Level 4.5 Chloride Level 95 Carbon Dioxide Level 31.8 Anion Gap 6 Blood Urea Nitrogen 25 Creatinine 1.33 Estimat Glomerular Filtration 55 Rate Random Glucose 242 Calcium Level 9.3 Magnesium Level 2.3 Total Bilirubin 0.3 Aspartate Amino Transf 15 (AST/SGOT) Alanine Aminotransferase 15 (ALT/SGPT) Alkaline Phosphatase 150 Total Creatine Kinase 39 Troponin I LESS THAN 0.02 C-Reactive Protein 19.80 B-Type Natriuretic Peptide 84 Total Protein 7.7 Albumin 3.0 Lipase 134 Lactic Acid Level 0.9 Urine Color YELLOW Urine Turbidity CLEAR Urine pH 5.5 Urine Specific [place] 1.017 Urine Protein 30 Urine Glucose (UA) 1000 Urine Ketones NEG Urine Occult Blood NEG Urine Nitrite NEG Urine Bilirubin NEG Urine Urobilinogen LESS THAN 2.0 Urine Leukocyte Esterase NEG Urine RBC 2 Urine WBC 1 Urine Mucus FEW Microscopic Urinalysis Comment CULT NOT INDICATED Date/Time Procedure Status Source Growth 12/23/16 01:40 Aerobic Blood Culture Received Blood Peripheral Pending 12/23/16 01:40 Anaerobic Blood Culture Received Blood Peripheral Pending 12/23/16 01:00 Gram Stain - Final Resulted Wound Foot 12/23/16 01:00 Wound Culture Resulted Wound Foot Pending Result Diagram: 12/23/16 0100 12/23/16 0100 Imaging Last Impressions Chest X-Ray 12/23/16 0129 Signed Impressions: Service Date/Time: Friday, December 23, 2016 01:56 - CONCLUSION: No acute disease. Juan Garza MD Foot X-Ray 12/23/16 0000 Signed Impressions: Service Date/Time: Friday, December 23, 2016 03:46 - CONCLUSION: No definite acute bony findings Juan Garza MD Assessment and Plan Assessment and Plan R foot infection/abscess Ordered MRI R foot Plan to OR for I&D abscess tomorrow evening NPO after breakfast tomorrow Alonso John DPM December 23, 2016 16:51
[2016-12-23] MEDS: MORPHINE SULFATE 4 MG/ML INJ IV PRN (17:48)
[2016-12-23] MEDS: ACETAMINOPHEN 325 MG TAB PO PRN (22:36)
[2016-12-24] MEDS ORDERED: LACTATED RINGER'S 1000 ML IV PRN (02:45)
[2016-12-24 05:43] LABS: BASOPHIL % 0.4 % (0.0-2.0); EOSINOPHIL # 0.1 TH/MM3 (0-0.4); EOSINOPHIL % 1.1 % (0.0-4.0); HEMATOCRIT 26.8 % (39.0-51.0); HEMO FLAGS DIFF FINAL; LYMPH % 11.4 % (9.0-44.0); LYMPHOCYTE # 1.3 TH/MM3 (1.0-4.8); MEAN CELL VOLUME 83.2 FL (80.0-100.0); MEAN CORPUSCULAR HEMOGLOBIN 28.4 PG (27.0-34.0); MEAN CORPUSCULAR HGB CONC 34.1 % (32.0-36.0); MONO % 8.4 % (0.0-8.0); NEUT % 78.7 % (16.0-70.0); PLATELET COUNT 353 TH/MM3 (150-450); RED BLOOD COUNT 3.22 MIL/MM3 (4.50-5.90); RED CELL DISTRIBUTION WIDTH 13.3 % (11.6-17.2); WHITE BLOOD COUNT 11.5 TH/MM3 (4.0-11.0)
[2016-12-24 05:54] LABS: ALKALINE PHOSPHATASE 233 U/L (45-117); ALT (GPT) 28 U/L (12-78); ANION GAP 8 MEQ/L (5-15); AST (GOT) 32 U/L (15-37); BICARBONATE 27.9 MEQ/L (21.0-32.0); BLOOD UREA NITROGEN 17 MG/DL (7-18); CHLORIDE 101 MEQ/L (98-107); GLOMERULAR FILTRATION RATE 79 ML/MIN (>89); POTASSIUM 4.3 MEQ/L (3.5-5.1); SODIUM (NA) 137 MEQ/L (136-145); TOTAL BILIRUBIN ADULT 0.3 MG/DL (0.2-1.0)
[2016-12-24] MEDS: INSULIN ASPART SUPPLEMENTAL SCALE SQ SCH ×4 (06:27→20:10)
[2016-12-24] MEDS: VANCOMYCIN 1,500 MG/NS 500 ML IV SCH ×2 (07:51)
[2016-12-24] MEDS: SODIUM CHLORIDE 0.9% FLUSH 10 ML FLUSH IV FLUSH SCH ×2 (07:52→20:07)
[2016-12-24] MEDS: HEPARIN SODIUM - SQ 10,000 UNITS/ML VIAL SQ SCH ×2 (07:52→20:07)
[2016-12-24] MEDS: DOCUSATE SODIUM 50 MG/SENNA 8.6 MG TAB PO SCH ×2 (07:52→20:09)
[2016-12-24 08:00] VITALS: BP 154/71; PULSE 91; RESP 20; TEMP 98; O2SAT 98
--- NOTE | 2016-12-24 10:02 | HHI.PR ---
Subjective Remarks Patient reports is feeling okay. Back some temperature last night of 101.1. He has been seen by podiatry. Plan for I&D in the OR later today. Objective Vitals Vital Signs Date Time Temp Pulse Resp B/P Pulse Ox O2 Delivery O2 Flow Rate FiO2 12/24/16 08:00 98.0 91 20 154/71 98 12/23/16 23:36 16 12/23/16 20:06 93 12/23/16 20:00 101.1 96 20 143/69 97 12/23/16 17:53 17 12/23/16 16:00 99.1 93 18 159/77 94 12/23/16 12:00 97.1 84 17 128/64 98 I/O 12/23/16 12/23/16 12/23/16 12/24/16 12/24/16 12/24/16 07:00 15:00 23:00 07:00 15:00 23:00 Intake Total 720 ml 480 ml 2591 ml 120 ml Output Total 400 ml 550 ml 650 ml Balance 320 ml -70 ml 1941 ml 120 ml Intake Oral 720 ml 480 ml 360 ml 120 ml IV Total 2231 ml Output Urine Total 400 ml 550 ml 650 ml # Voids 1 # Bowel Movements 1 0 Result Diagram: 12/24/16 0439 12/24/16 0439 Imaging Last Impressions Orbit X-Ray 12/24/16 0000 Signed Impressions: Service Date/Time: Saturday, December 24, 2016 10:09 - CONCLUSION: Unremarkable exam. Rikki Boyd MD Foot MRI 12/24/16 0000 Signed Impressions: Service Date/Time: Saturday, December 24, 2016 10:27 - CONCLUSION: 1. No evidence of osteomyelitis. 2. Nonspecific soft tissue inflammatory changes involving the soft tissues along the plantar surface of the foot at the level between the first and second metatarsals. This is most likely cellulitis. Rikki Boyd MD Chest X-Ray 12/23/16 0129 Signed Impressions: Service Date/Time: Friday, December 23, 2016 01:56 - CONCLUSION: No acute disease. Juan Garza MD Foot X-Ray 12/23/16 0000 Signed Impressions: Service Date/Time: Friday, December 23, 2016 03:46 - CONCLUSION: No definite acute bony findings Juan Garza MD Objective Remarks GENERAL: This is a well-nourished, well-developed patient, in no apparent distress. CARDIOVASCULAR: Normal rate and regular rhythm without murmurs, gallops, or rubs. RESPIRATORY: Good respiratory efforts. Breath sounds equal and clear to auscultation bilaterally. GASTROINTESTINAL: Abdomen soft, non-tender, non-distended. Normal active bowel sounds MUSCULOSKELETAL: R plantar foot with ulceration and surrounding erythema. Significantly tender to palpation. NEURO: Alert & Oriented x4 to person, place, time, situation. Moves all ext x4 PSYCH: Appropriate mood and affect. A/P Problem List: (1) Sepsis ICD Code: A41.9 Status: Acute (2) Cellulitis ICD Code: L03.90 Status: Acute (3) CESAR (acute kidney injury) ICD Code: N17.9 Status: Acute (4) DM (diabetes mellitus) ICD Code: E11.9 Status: Acute Assessment and Plan 56-year-old admitted with: Sepsis: Patient meet criteria on admission. Source is right foot infection. - Continue vancomycin and Ancef Follow wound and blood cultures - Podiatry will do debridement. - MRI does not reveal any osteomyelitis. CESAR: Secondary to sepsis and dehydration. Resolved with IV fluid - Avoid nephrotoxins. DM: Recent diagnosis of DM on previous admit, Hgb A1c 8.0 on 10/10/16. Continue to hold metformin. Sliding scale w/ Accu-Cheks. DVT Prophylaxis: Heparin sq Problem Qualifiers (1) Cellulitis: Qualified Code: L03.115 - Cellulitis of right lower extremity Kortney Cartagena MD December 24, 2016 10:02
--- NOTE | 2016-12-24 10:25 | RADRPT ---
EXAM DATE/TIME: 12/24/2016 10:09 [facility] COMPARISON: No previous studies available for comparison. INDICATIONS : Pre MRI screening. History of metal shavings in eyes surgically removed. MEDICAL HISTORY : Diabetes mellitus type II. SURGICAL HISTORY : None. ENCOUNTER: Initial ACUITY: 1 day PAIN SCORE: 0/10 LOCATION: Bilateral orbits FINDINGS: Limited examination of the orbits was performed. There is no evidence of fracture involving the bony structures surrounding the orbits. The maxillary sinuses appear to be well aerated. No radiopaque foreign bodies are seen in the soft tissues. CONCLUSION: Unremarkable exam. Rikki Boyd MD on December 24, 2016 at 10:23 Board Certified Radiologist. This report was verified electronically.
[2016-12-24] MEDS ORDERED: GADODIAMIDE PF 287 MG/ML 20 ML VIAL (for RAD MRI) IV ONE (10:56)
[2016-12-24] MEDS: SODIUM CHLOR 0.9% 1000 ML INJ 1,000 ML IV SCH ×2 (11:21→20:08)
--- NOTE | 2016-12-24 11:28 | RADRPT ---
EXAM DATE/TIME: 12/24/2016 10:27 [facility] COMPARISON: FOOT RIGHT COMPLETE ([id number]), December 23, 2016, 3:46. INDICATIONS : Wound on plantar surface of right foot at the level of the MTPJ. CONTRAST: 16 cc Omniscan (gadodiamide) IV MEDICAL HISTORY : Hypertension. Diabetes mellitus type 2. SURGICAL HISTORY : Cholecystectomy. CATARACT ENCOUNTER: Subsequent ACUITY: 1 month PAIN SCORE: 2/10 LOCATION: Right foot TECHNIQUE: Multiplanar, multisequence MRI examination was performed without contrast and after the intravenous a dministration of gadolinium. FINDINGS: BONE/CARTILAGE: Bone marrow signal is homogeneous. Articular cartilage signal is within normal limits. TENDONS: All of the visualized tendons are intact. MISCELLANEOUS: There is focal edema/inflammatory changes involving the soft tissues along the plantar surface of the foot at the level of the first and second metatarsophalangeal joints. No loculated fluid collection is seen. There is correlates with the cutaneous wound. POST-CONTRAST: There is some enhancement of the cutaneous wound along the plantar surface of the foot consist with i nflammatory-type changes. CONCLUSION: 1. No evidence of osteomyelitis. 2. Nonspecific soft tissue inflammatory changes involving the soft tissues along the plantar surface of the foot at the level between the first and second metatarsals. This is most likely cellulitis. Rikki Boyd MD on December 24, 2016 at 11:21 Board Certified Radiologist. This report was verified electronically.
[2016-12-24 12:00] VITALS: BP 147/71; PULSE 89; RESP 19; TEMP 98.5; O2SAT 97
[2016-12-24] MEDS ORDERED: PROPOFOL 200 MG/20 ML AMP IV ONE (12:00)
[2016-12-24] MEDS ORDERED: PHENYLEPH/NS 1000 MCG/10 ML SYR IV ONE (12:00)
[2016-12-24 16:00] VITALS: BP 159/75; PULSE 101; RESP 19; TEMP 100.6; O2SAT 96
[2016-12-24] MEDS ORDERED: BUPIVACAINE HCL PF 0.5% 30 ML VIAL ONE (16:30)
[2016-12-24] MEDS ORDERED: LIDOCAINE HCL 2% 50 ML VIAL ONE (16:31)
[2016-12-24] MEDS ORDERED: NEOMYCIN/POLYMYXIN 1 ML G.U. IRRIGANT TOPICAL ONE (18:00)
[2016-12-24] MEDS ORDERED: fentaNYL CITRATE 250 MCG/5 ML AMP ONE (18:23)
--- NOTE | 2016-12-24 18:23 | HHI.PR ---
Immediate Post Op Note Procedure Date: December 24, 2016 Pre Op Diagnosis: abscess R plantar foot Post Op Diagnosis: same Surgeon: Alonso John DPM Lens Grinder Rough(s): Staff Procedure: I&D R foot abscess Findings: Plantar ulceration sub 2nd metatarsal head area down to tendon, communicated proximally to visible deep abscess in plantar arch area. Upon Incision and drainage at area of ulceration, found to probe proximally. Incision continued into medial arch area and area opened, cultured, then irrigated with 3L NS. Necrotic fatty tissue noted and foul odor present. Milky purulent drainage noted. Abscess was down to level of plantar fascia. Wound irrigated, then packed with xeroform, 4x4, abd, cast padding, srinath. Plan for repeat I&D and possible DPC later in the week. Additional Information: n/a Complications: none Specimen(s) removed: deep culture Estimated blood loss: minimal Anesthesia: General Drains: None IVF Tourniquet time (min at mmHg) n/a Patient to: PACU Patient Condition: Good Date/Time of Procedure: SEE SURGICAL CARE RECORD Alonso John DPM December 24, 2016 18:23
[2016-12-24] MEDS ORDERED: DO NOT ADM ANY ANTICOAGULANT DRUGS PRN (19:30)
[2016-12-24 19:55] VITALS: PULSE 100
[2016-12-24 20:00] VITALS: BP 155/72; PULSE 99; RESP 17; TEMP 99.7; O2SAT 94
[2016-12-24] MEDS: ACETAMINOPHEN/HYDROcodone 325 MG/5 MG TAB PO PRN (20:07)
[2016-12-24] MEDS: MORPHINE SULFATE 4 MG/ML INJ IV PRN (21:41)
[2016-12-25] VITALS (7 sets, daily range): BP systolic 95–154; BP diastolic 52–71; PULSE 86–104; RESP 16–20; TEMP 99.4–101.7; O2SAT 94–98
[2016-12-25] MEDS ORDERED: PHARMACY ORDERED LAB ONE (02:45)
[2016-12-25] MEDS: ACETAMINOPHEN/HYDROcodone 325 MG/5 MG TAB PO PRN ×2 (03:30→17:42)
[2016-12-25] MEDS: VANCOMYCIN 1,500 MG/NS 500 ML IV SCH ×4 (04:51→16:22)
[2016-12-25] MEDS: SODIUM CHLOR 0.9% 1000 ML INJ 1,000 ML IV SCH ×2 (05:38→08:28)
[2016-12-25] MEDS: INSULIN ASPART SUPPLEMENTAL SCALE SQ SCH ×4 (06:17→19:59)
[2016-12-25] MEDS: DOCUSATE SODIUM 50 MG/SENNA 8.6 MG TAB PO SCH ×2 (08:26→20:01)
[2016-12-25] MEDS: HEPARIN SODIUM - SQ 10,000 UNITS/ML VIAL SQ SCH ×2 (08:26→08:41)
[2016-12-25] MEDS: SODIUM CHLORIDE 0.9% FLUSH 10 ML FLUSH IV FLUSH SCH ×2 (09:00→21:00)
--- NOTE | 2016-12-25 10:03 | HHI.PR ---
Subjective Remarks Patient reports is feeling okay. Minimal pain on the right foot. Postop day 1 for I&D of abscess. Tmax 100.7 Objective Vitals Vital Signs Date Time Temp Pulse Resp B/P Pulse Ox O2 Delivery O2 Flow Rate FiO2 12/25/16 08:00 99.4 95 17 129/68 95 12/25/16 04:00 100.7 104 16 140/69 94 12/25/16 00:00 99.5 91 17 135/65 94 12/24/16 20:00 99.7 99 17 155/72 94 12/24/16 19:55 100 12/24/16 18:45 99.5 97 12 131/61 97 12/24/16 18:30 96 12 120/62 97 12/24/16 18:15 99.0 95 12 131/60 97 12/24/16 16:00 100.6 101 19 159/75 96 12/24/16 12:00 98.5 89 19 147/71 97 I/O 12/24/16 12/24/16 12/24/16 12/25/16 12/25/16 12/25/16 07:00 15:00 23:00 07:00 15:00 23:00 Intake Total 2591 ml 1338 ml 430 ml 814 ml 120 ml Output Total 650 ml 2400 ml 700 ml 1300 ml Balance 1941 ml -1062 ml -270 ml -486 ml 120 ml Intake Oral 360 ml 600 ml 300 ml 240 ml 120 ml IV Total 2231 ml 738 ml 130 ml 574 ml Output Urine Total 650 ml 2400 ml 700 ml 1300 ml # Bowel Movements 0 0 0 Result Diagram: 12/24/16 0439 12/24/16 0439 Objective Remarks GENERAL: This is a well-nourished, well-developed patient, in no apparent distress. CARDIOVASCULAR: Normal rate and regular rhythm without murmurs, gallops, or rubs. RESPIRATORY: Good respiratory efforts. Breath sounds equal and clear to auscultation bilaterally. GASTROINTESTINAL: Abdomen soft, non-tender, non-distended. Normal active bowel sounds MUSCULOSKELETAL: R foot has a post op dressing. toes are neurovascularly intact. NEURO: Alert & Oriented x4 to person, place, time, situation. Moves all ext x4 PSYCH: Appropriate mood and affect. A/P Problem List: (1) Sepsis ICD Code: A41.9 Status: Acute (2) Cellulitis ICD Code: L03.90 Status: Acute (3) CESAR (acute kidney injury) ICD Code: N17.9 Status: Acute (4) DM (diabetes mellitus) ICD Code: E11.9 Status: Acute Assessment and Plan 56-year-old admitted with: Sepsis: Patient meet criteria on admission. Source is right foot infection. - Continue vancomycin and Ancef Superficial wound cultures growing group D enterococcus and group B strep - Patient is status post I&D of right foot plantar abscess. Per podiatry, Necrotic fatty tissue noted and foul odor present. Milky purulent drainage noted. Abscess was down to level of plantar fascia. Will need repeat debridement per podiatry - MRI does not reveal any osteomyelitis. However infection is deep per rail tractor operator findings. Will consult ID for antibiotics recs. CESAR: Secondary to sepsis and dehydration. Resolved with IV fluid - Avoid nephrotoxins. DM: Recent diagnosis of DM on previous admit, Hgb A1c 8.0 on 10/10/16. Continue to hold metformin. Sliding scale w/ Accu-Cheks. DVT Prophylaxis: Heparin sq Discharge Planning Continue IV antibiotics. Will need repeat debridement per Podiatry. Problem Qualifiers (1) Cellulitis: Qualified Code: L03.115 - Cellulitis of right lower extremity Kortney Cartagena MD December 25, 2016 10:03
--- NOTE | 2016-12-25 15:31 | PD.ID.CON ---
History of Present Illness Service ID Consult Requested By Dr Cartagena Reason for Consult R foot DFI Primary Care Physician No Primary Care Physician Diagnoses: History of Present Illness This is a 56-year-old diabetic male who presented to the ER with complaints of right foot infection He had a R plantar blister for 1 month. Alaina, swelling redness got progressively worse in the last 2-3 weeks and that prompted hinm to go to ER He denies seeing any medical provider prior to it and he was not on anty abx He started to have fever since w/e MRI w/o osteomyelitis S p I+D yday Clx growing enterococcus and GBS from surface clx GBS from op clx Review of Systems Except as stated in HPI: all other systems reviewed are Neg Past Family Social History Allergies: Coded Allergies: Penicillin (Verified Allergy, Unknown, 12/23/16) Past Medical History PMH: HTN and DM Past Surgical History Cataract Surgery, Cholecystectomy Active Ordered Medications Medications where reviewed in EMR Antibiotics Include: vancomycin cefazoline Family History Non-Contributory. Social History Occasional alcohol. Negative for tobacco or drugs. Physical Exam Vital Signs Vital Signs Date Time Temp Pulse Resp B/P Pulse Ox O2 Delivery O2 Flow Rate FiO2 12/25/16 12:00 99.4 93 18 122/60 96 12/25/16 08:00 99.4 95 17 129/68 95 12/25/16 04:00 100.7 104 16 140/69 94 12/25/16 00:00 99.5 91 17 135/65 94 12/24/16 20:00 99.7 99 17 155/72 94 12/24/16 19:55 100 12/24/16 18:45 99.5 97 12 131/61 97 12/24/16 18:30 96 12 120/62 97 12/24/16 18:15 99.0 95 12 131/60 97 12/24/16 16:00 100.6 101 19 159/75 96 Physical Exam CONSTITUTIONAL/GENERAL: This is an adequately nourished patient, in no apparent distress. TUBES/LINES/DRAINS: SKIN: No jaundice, rashes, or lesions. Skin temperature appropriate. Not diaphoretic. HEAD: Atraumatic. Normocephalic. EYES: Pupils equal and round and reactive. Extraocular motions intact. No scleral icterus. No injection or drainage. Fundi not examined. ENT: Hearing grossly normal. Nose without bleeding or purulent drainage. Oral mucosae without visible erythema, exudates, masses, or lesions. NECK: Trachea midline. Supple, nontender. CARDIOVASCULAR: Regular rate and rhythm without murmurs, gallops, or rubs. No JVD. Peripheral pulses symmetric. RESPIRATORY/CHEST: Symmetric, unlabored respirations. Clear to auscultation. Breath sounds equal bilaterally. No wheezes, rales, or rhonchi. GASTROINTESTINAL: Abdomen soft, non-tender, nondistended. No hepato-splenomegaly , or palpable masses. No guarding. Bowel sounds present. GENITOURINARY: Without palpable bladder distension. MUSCULOSKELETAL: Extremities without clubbing, cyanosis, or edema. No joint tenderness or effusion noted. No calf tenderness. No mottling or clubbing. LYMPHATICS: No palpable cervical or supraclavicular adenopathy. + enlarged R inguinal lymph nodule L foot wioth excelent pedal pls 2/2 R foot with surg dressing in place toes well perfused Minimla edema, erythema warmth to R martinez noted, no ascending lyymphangitis NEUROLOGICAL: Awake and alert. Motor and sensory grossly within normal limits. Follows commands. Cognitively sharp. Moves all extremities. PSYCHIATRIC: No obvious anxiety/depression. no apparent hallucinations or other psychotic thought process. Laboratory Laboratory Tests Test 12/25/16 04:22 Vancomycin Level Trough 9.1 Date/Time Procedure Status Source Growth 12/24/16 00:00 Gram Stain - Final Resulted Abscess Foot 12/24/16 00:00 Wound Culture - Preliminary Resulted Streptococcus Species 12/24/16 00:00 Fungal Smear - Final Resulted Abscess Foot NO FUNGAL ELEMENTS SEEN. 12/24/16 00:00 Fungal Culture Resulted Abscess Foot Pending 12/24/16 00:00 Acid Fast Stain - Final Resulted Abscess Foot NO ACID FAST BACILLI SEEN 12/24/16 00:00 Mycobacterial Culture Resulted Abscess Foot Pending 12/23/16 01:40 Aerobic Blood Culture - Preliminary Resulted Blood Peripheral NO GROWTH IN 2 DAYS 12/23/16 01:40 Anaerobic Blood Culture - Preliminary Resulted Blood Peripheral NO GROWTH IN 2 DAYS Result Diagram: 12/24/16 0439 12/24/16 0439 Imaging Last Impressions Orbit X-Ray 12/24/16 0000 Signed Impressions: Service Date/Time: Saturday, December 24, 2016 10:09 - CONCLUSION: Unremarkable exam. Rikki Boyd MD Foot MRI 12/24/16 0000 Signed Impressions: Service Date/Time: Saturday, December 24, 2016 10:27 - CONCLUSION: 1. No evidence of osteomyelitis. 2. Nonspecific soft tissue inflammatory changes involving the soft tissues along the plantar surface of the foot at the level between the first and second metatarsals. This is most likely cellulitis. Rikki Boyd MD Chest X-Ray 12/23/16 0129 Signed Impressions: Service Date/Time: Friday, December 23, 2016 01:56 - CONCLUSION: No acute disease. Juan Garza MD Foot X-Ray 12/23/16 0000 Signed Impressions: Service Date/Time: Friday, December 23, 2016 03:46 - CONCLUSION: No definite acute bony findings Juan Garza MD Assessment and Plan Assessment and Plan R foot DFI, no osteo Clx growing enterococcus and GB sp I+D op report reviewed: deep abscess in plantar arch area. Necrotic fatty tissue noted and foul odor present. Milky purulent drainage noted. Abscess was down to level of plantar fascia. PCN allergy in the form of rash - cont vanco, cefazoline for now - fu op clx Lennie Yi MD December 25, 2016 15:30
[2016-12-25] MEDS: ACETAMINOPHEN 325 MG TAB PO PRN (16:21)
--- NOTE | 2016-12-25 19:07 | PD.POD ---
Subjective Podiatric Problems R plantar foot abscess, s/p I&D 12/24/16 [facility] Past Med/Surg/Social History Social History Smoking Status: Never Smoker Objective Vital Signs Vital Signs Date Time Temp Pulse Resp B/P Pulse Ox O2 Delivery O2 Flow Rate FiO2 12/25/16 16:00 101.7 102 19 154/71 95 12/25/16 12:00 99.4 93 18 122/60 96 12/25/16 08:00 99.4 95 17 129/68 95 12/25/16 04:00 100.7 104 16 140/69 94 12/25/16 00:00 99.5 91 17 135/65 94 12/24/16 20:00 99.7 99 17 155/72 94 12/24/16 19:55 100 Coded Allergies: Penicillin (Verified Allergy, Unknown, 12/23/16) Medications and IVs Current Medications Medications (Trade) Dose Ordered Sig/Hue Route Start Time Stop Time Status Last Admin Pharmacy Profile Note 0 ml @ 0 mls/hr UNSCH OTHER 12/23/16 04:15 (Ancef Inj/NS Inj) 100 ml @ 200 mls/hr Q8H IV 12/23/16 10:00 12/25/16 16:22 (D50w (Vial) Inj) 50 ml UNSCH PRN IV 12/23/16 04:15 Glucagon 1 mg 1 mg UNSCH PRN OTHER 12/23/16 04:15 (NS 1000 ml Inj) 1,000 ml @ 100 mls/hr Q10H IV 12/23/16 04:11 12/25/16 08:28 (NS Flush) 2 ml UNSCH PRN IV FLUSH 12/23/16 04:15 (NS Flush) 2 ml BID IV FLUSH 12/23/16 09:00 12/24/16 20:07 (Zofran Inj) 4 mg Q6H PRN IVP 12/23/16 04:15 (Heparin Inj) 5,000 units Q12H SQ 12/23/16 09:00 12/24/16 20:07 (Tylenol) 650 mg Q6H PRN PO 12/23/16 04:15 12/25/16 16:21 (Fannin 5-325 Mg) 1 tab Q4H PRN PO 12/23/16 04:15 12/25/16 17:42 (Morphine Inj) 2 mg Q3H PRN IV 12/23/16 04:15 12/24/16 21:41 (Nicole-Colace) 1 tab BID PO 12/23/16 09:00 12/25/16 08:26 (Milk Of Magntatyana Liq) 30 ml Q12H PRN PO 12/23/16 04:15 (Senokot) 17.2 mg Q12H PRN PO 12/23/16 04:15 (Dulcolax Supp) 10 mg DAILY PRN RECTAL 12/23/16 04:15 Lactulose 30 ml 30 ml DAILY PRN PO 12/23/16 04:15 (Lr 1000 ml Inj) 1,000 ml @ 30 mls/hr Q24H PRN IV 12/24/16 02:45 12/27/16 02:44 Miscellaneous Information ALL NURSING DEPARTME... UNSCH PRN .XX 12/24/16 19:30 12/25/16 19:29 (Vancomycin Inj/ NS 500 ml Inj) 515 ml @ 257.5 mls/ hr Q12H IV 12/25/16 18:00 12/25/16 16:22 Miscellaneous Information SPECIFIC LAB TO BE DRAWN:VANCOMYCIN TROUGH DATE TO... ONCE ONCE .XX 12/27/16 05:45 12/27/16 05:46 Other Results Microbiology Date/Time Procedure Status Source Growth 12/24/16 00:00 Gram Stain - Final Resulted Abscess Foot 12/24/16 00:00 Wound Culture - Preliminary Resulted Streptococcus Species 12/24/16 00:00 Fungal Smear - Final Resulted Abscess Foot NO FUNGAL ELEMENTS SEEN. 12/24/16 00:00 Fungal Culture Resulted Abscess Foot Pending 12/24/16 00:00 Acid Fast Stain - Final Resulted Abscess Foot NO ACID FAST BACILLI SEEN 12/24/16 00:00 Mycobacterial Culture Resulted Abscess Foot Pending 12/23/16 01:40 Aerobic Blood Culture - Preliminary Resulted Blood Peripheral NO GROWTH IN 2 DAYS 12/23/16 01:40 Anaerobic Blood Culture - Preliminary Resulted Blood Peripheral NO GROWTH IN 2 DAYS Exam-Podiatry Remarks R foot bandage clean, dry, intact Assessment & Plan A/P Abscess R plantar foot, s/p I&D 12/24/16 [facility] Wound currently packed open Plan to repeat I&D with possible closure Friday vs Friday. [facility] D[facility] December 25, 2016 19:07
[2016-12-26] VITALS (7 sets, daily range): BP systolic 117–168; BP diastolic 56–74; PULSE 79–103; RESP 18–21; TEMP 96.7–102.8; O2SAT 93–97
[2016-12-26] MEDS: SODIUM CHLOR 0.9% 1000 ML INJ 1,000 ML IV SCH ×3 (02:11→22:11)
[2016-12-26] MEDS: ACETAMINOPHEN 325 MG TAB PO PRN ×2 (03:32→17:15)
[2016-12-26] MEDS: VANCOMYCIN 1,500 MG/NS 500 ML IV SCH ×4 (05:32→18:31)
[2016-12-26] MEDS: ACETAMINOPHEN/HYDROcodone 325 MG/5 MG TAB PO PRN (05:33)
[2016-12-26] MEDS: INSULIN ASPART SUPPLEMENTAL SCALE SQ SCH ×4 (05:49→19:51)
[2016-12-26 06:01] LABS: HEMATOCRIT 24.2 % (39.0-51.0); MEAN CELL VOLUME 82.4 FL (80.0-100.0); MEAN CORPUSCULAR HEMOGLOBIN 28.3 PG (27.0-34.0); MEAN CORPUSCULAR HGB CONC 34.3 % (32.0-36.0); PLATELET COUNT 336 TH/MM3 (150-450); RED BLOOD COUNT 2.94 MIL/MM3 (4.50-5.90); RED CELL DISTRIBUTION WIDTH 13.2 % (11.6-17.2); REVIEW FLAG FINAL; WHITE BLOOD COUNT 12.5 TH/MM3 (4.0-11.0)
[2016-12-26 06:20] LABS: BICARBONATE 30.7 MEQ/L (21.0-32.0); POTASSIUM 3.6 MEQ/L (3.5-5.1)
[2016-12-26] MEDS: SODIUM CHLORIDE 0.9% FLUSH 10 ML FLUSH IV FLUSH SCH ×2 (09:00→19:45)
[2016-12-26] MEDS: DOCUSATE SODIUM 50 MG/SENNA 8.6 MG TAB PO SCH ×2 (09:00→19:47)
--- NOTE | 2016-12-26 10:55 | HHI.PR ---
Subjective Remarks Follow-up for right foot infection Pain is controlled, mostly negligible. Still having low-grade fever. No nausea or vomiting. Good bowel movement, good oral intake. Objective Vitals Vital Signs Date Time Temp Pulse Resp B/P Pulse Ox O2 Delivery O2 Flow Rate FiO2 12/26/16 08:00 96.7 79 21 118/61 95 12/26/16 04:00 101.6 100 18 138/63 95 12/26/16 00:00 99.3 88 18 143/65 96 12/25/16 20:00 99.5 86 20 95/52 98 12/25/16 19:50 89 12/25/16 16:00 101.7 102 19 154/71 95 12/25/16 12:00 99.4 93 18 122/60 96 I/O 12/25/16 12/25/16 12/25/16 12/26/16 12/26/16 12/26/16 07:00 15:00 23:00 07:00 15:00 23:00 Intake Total 814 ml 600 ml 2579 ml 1161 ml Output Total 1300 ml 800 ml 300 ml 1100 ml Balance -486 ml -200 ml 2279 ml 61 ml Intake Oral 240 ml 600 ml 320 ml 240 ml IV Total 574 ml 2259 ml 921 ml Output Urine Total 1300 ml 800 ml 300 ml 1100 ml # Bowel Movements 0 0 0 Result Diagram: 12/26/16 0501 12/26/16 0501 Objective Remarks GENERAL: This is a well-nourished, well-developed patient, in no apparent distress. CARDIOVASCULAR: Normal rate and regular rhythm without murmurs, gallops, or rubs. RESPIRATORY: Good respiratory efforts. Breath sounds equal and clear to auscultation bilaterally. GASTROINTESTINAL: Abdomen soft, non-tender, non-distended. Normal active bowel sounds MUSCULOSKELETAL: R foot has a post op dressing. toes are neurovascularly intact. NEURO: Alert & Oriented x4 to person, place, time, situation. Moves all ext x4 PSYCH: Appropriate mood and affect. A/P Problem List: (1) Sepsis ICD Code: A41.9 Status: Acute (2) Cellulitis ICD Code: L03.90 Status: Acute (3) CESAR (acute kidney injury) ICD Code: N17.9 Status: Acute (4) DM (diabetes mellitus) ICD Code: E11.9 Status: Acute Assessment and Plan 56-year-old admitted with: Sepsis secondary to right foot infection for an abscess Superficial wound cultures growing group D enterococcus and group B strep - Patient is status post I&D of right foot plantar abscess. Per podiatry, Necrotic fatty tissue noted and foul odor present. Milky purulent drainage noted. Abscess was down to level of plantar fascial, for repeat surgery with closure tomorrow or Friday. - MRI does not reveal any osteomyelitis. 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 Infectious disease following, continue vancomycin and cefazolin for now. - Still with low-grade fever CESAR: Secondary to sepsis and dehydration. Resolved with IV fluid - Avoid nephrotoxins. DM: Recent diagnosis of DM on previous admit, Hgb A1c 8.0 on 10/10/16. Continue to hold metformin. Sliding scale w/ Accu-Cheks. DVT Prophylaxis: Heparin sq Problem Qualifiers (1) Cellulitis: Qualified Code: L03.115 - Cellulitis of right lower extremity Ike Borges MD Dec 26, 2016 10:55
[2016-12-26] MEDS: HEPARIN SODIUM - SQ 10,000 UNITS/ML VIAL SQ SCH ×2 (11:25→19:47)
[2016-12-27] VITALS (11 sets, daily range): BP systolic 85–186; BP diastolic 49–84; PULSE 81–92; RESP 16–20; TEMP 97.7–99.7; O2SAT 95–99
--- NOTE | 2016-12-27 00:33 | PD.POD ---
Subjective Podiatric Problems R plantar foot abscess, s/p I&D 12/24/16 [facility] Past Med/Surg/Social History Social History Smoking Status: Never Smoker Objective Vital Signs Vital Signs Date Time Temp Pulse Resp B/P Pulse Ox O2 Delivery O2 Flow Rate FiO2 12/26/16 20:00 100.4 92 20 117/56 95 12/26/16 20:00 91 12/26/16 18:34 100.1 12/26/16 16:00 102.8 103 20 168/74 93 12/26/16 12:00 99.3 95 18 146/69 97 12/26/16 08:00 96.7 79 21 118/61 95 12/26/16 04:00 101.6 100 18 138/63 95 Coded Allergies: Penicillin (Verified Allergy, Unknown, 12/23/16) Assessment & Plan A/P Abscess R plantar foot, s/p I&D 12/24/16 [facility] Wound currently packed open Plan to repeat I&D with possible closure Friday pm NPO after breakfast Alonso John DPM Dec 27, 2016 00:33
[2016-12-27] MEDS ORDERED: CHLORHEXIDINE GLUCONATE 2 % 1 PACK (2 CLOTHS) TOPICAL PRN (01:45)
[2016-12-27] MEDS ORDERED: LACTATED RINGER'S 1000 ML IV PRN (01:45)
[2016-12-27] MEDS ORDERED: PHARMACY ORDERED LAB ONE (05:45)
[2016-12-27] MEDS: VANCOMYCIN 1,500 MG/NS 500 ML IV SCH ×2 (06:02)
[2016-12-27] MEDS: INSULIN ASPART SUPPLEMENTAL SCALE SQ SCH ×4 (06:28→21:00)
[2016-12-27] MEDS: HEPARIN SODIUM - SQ 10,000 UNITS/ML VIAL SQ SCH ×2 (09:00→21:23)
[2016-12-27] MEDS: DOCUSATE SODIUM 50 MG/SENNA 8.6 MG TAB PO SCH ×2 (09:00→21:23)
[2016-12-27] MEDS: SODIUM CHLORIDE 0.9% FLUSH 10 ML FLUSH IV FLUSH SCH ×2 (09:00→21:23)
[2016-12-27] MEDS: ACETAMINOPHEN/HYDROcodone 325 MG/5 MG TAB PO PRN ×2 (09:28→22:55)
[2016-12-27] MEDS ORDERED: PHENYLEPH/NS 1000 MCG/10 ML SYR IV ONE (12:00)
[2016-12-27] MEDS ORDERED: PROPOFOL 200 MG/20 ML AMP IV ONE (12:00)
[2016-12-27] MEDS ORDERED: ONDANSETRON HCL 4 MG/2 ML VIAL IV PUSH ONE (12:00)
[2016-12-27] MEDS ORDERED: ENALAPRILAT 2.5 MG/2 ML VIAL IV PUSH ONE (14:15)
[2016-12-27] MEDS: SODIUM CHLOR 0.9% 1000 ML INJ 1,000 ML IV SCH ×3 (14:27→21:39)
[2016-12-27] MEDS ORDERED: BUPIVACAINE HCL PF 0.5% 30 ML VIAL ONE (14:45)
[2016-12-27] MEDS ORDERED: BACITRACIN TOP OINT 15 GM TUBE ONE (14:45)
[2016-12-27] MEDS ORDERED: GENTAMICIN SULFATE 80 MG/2 ML VIAL ONE (14:46)
--- NOTE | 2016-12-27 15:32 | HHI.PR ---
Subjective Remarks Follow-up for right foot infection in Pain is manageable, for surgery today, has been nothing by mouth. Afebrile. Objective Vitals Vital Signs Date Time Temp Pulse Resp B/P Pulse Ox O2 Delivery O2 Flow Rate FiO2 12/27/16 14:41 140/78 12/27/16 13:47 186/84 12/27/16 12:00 97.7 81 16 85/55 97 89/49 12/27/16 08:00 99.7 92 17 149/77 95 12/27/16 04:00 99.0 90 20 124/69 98 12/27/16 00:00 98.9 89 18 120/66 97 12/26/16 20:00 100.4 92 20 117/56 95 12/26/16 20:00 91 12/26/16 18:34 100.1 12/26/16 16:00 102.8 103 20 168/74 93 I/O 12/26/16 12/26/16 12/26/16 12/27/16 12/27/16 12/27/16 07:00 15:00 23:00 07:00 15:00 23:00 Intake Total 1161 ml 1173 ml 1182 ml 888 ml Output Total 1100 ml 850 ml 1150 ml 550 ml Balance 61 ml 1173 ml 332 ml -262 ml -550 ml Intake Oral 240 ml 240 ml 480 ml 0 ml IV Total 921 ml 933 ml 702 ml 888 ml Output Urine Total 1100 ml 850 ml 1150 ml 550 ml # Voids 2 1 # Bowel Movements 0 0 0 1 Result Diagram: 12/26/16 0501 12/26/16 0501 Objective Remarks GENERAL: This is a well-nourished, well-developed patient, in no apparent distress. CARDIOVASCULAR: Normal rate and regular rhythm without murmurs, gallops, or rubs. RESPIRATORY: Good respiratory efforts. Breath sounds equal and clear to auscultation bilaterally. GASTROINTESTINAL: Abdomen soft, non-tender, non-distended. Normal active bowel sounds MUSCULOSKELETAL: R foot has a post op dressing. toes are neurovascularly intact. NEURO: Alert & Oriented x4 to person, place, time, situation. Moves all ext x4 PSYCH: Appropriate mood and affect. A/P Problem List: (1) Sepsis ICD Code: A41.9 Status: Acute (2) Cellulitis ICD Code: L03.90 Status: Acute (3) CESAR (acute kidney injury) ICD Code: N17.9 Status: Acute (4) DM (diabetes mellitus) ICD Code: E11.9 Status: Acute Assessment and Plan 56-year-old admitted with: Sepsis secondary to right foot infection for an abscess Superficial wound cultures growing group D enterococcus and group B strep - Patient is status post I&D of right foot plantar abscess. Per podiatry, Necrotic fatty tissue noted and foul odor present. Milky purulent drainage noted. Abscess was down to level of plantar fascial - MRI does not reveal any osteomyelitis. However infection is deep per peer health promoter findings. Infectious disease following, continue vancomycin and cefazolin for now. For repeat debridement and closure today. Recheck CBC and BMP tomorrow CESAR: Secondary to sepsis and dehydration. Resolved with IV fluid - Avoid nephrotoxins. DM: Recent diagnosis of DM on previous admit, Hgb A1c 8.0 on 10/10/16. Continue to hold metformin. Sliding scale w/ Accu-Cheks. DVT Prophylaxis: Heparin sq Discharge Planning This just once cleared by podiatry in 1-2 days. Problem Qualifiers (1) Cellulitis: Qualified Code: L03.115 - Cellulitis of right lower extremity Ike Borges MD Dec 27, 2016 15:32
[2016-12-27] MEDS ORDERED: LIDOCAINE HCL 2% 50 ML VIAL ONE (15:51)
[2016-12-27] MEDS ORDERED: MIDAZOLAM HCL 2 MG/2 ML VIAL ONE (16:46)
[2016-12-27] MEDS ORDERED: fentaNYL CITRATE 250 MCG/5 ML AMP ONE (16:46)
--- NOTE | 2016-12-27 16:56 | HHI.IDPN ---
Subjective Subjective Remarks getting ready to go for another I+D cont to have fevers' episode of hypotension noted Pt denies any complaints other then the foot Antibiotics cefazolin vanco Allergies: Coded Allergies: Penicillin (Verified Allergy, Unknown, 12/23/16) Objective . Vital Signs Date Time Temp Pulse Resp B/P Pulse Ox O2 Delivery O2 Flow Rate FiO2 12/27/16 16:22 98.4 89 17 138/70 97 12/27/16 14:41 140/78 12/27/16 13:47 186/84 12/27/16 12:00 97.7 81 16 85/55 97 89/49 12/27/16 08:00 99.7 92 17 149/77 95 12/27/16 04:00 99.0 90 20 124/69 98 12/27/16 00:00 98.9 89 18 120/66 97 12/26/16 20:00 100.4 92 20 117/56 95 12/26/16 20:00 91 12/26/16 18:34 100.1 12/26/16 12/26/16 12/27/16 15:00 23:00 07:00 Intake Total 1173 ml 1182 ml 888 ml Output Total 850 ml 1150 ml Balance 1173 ml 332 ml -262 ml Intake Oral 240 ml 480 ml 0 ml IV Total 933 ml 702 ml 888 ml Output Urine Total 850 ml 1150 ml # Voids 2 # Bowel Movements 0 0 . Laboratory Tests Test 12/26/16 05:01 White Blood Count 12.5 TH/MM3 Red Blood Count 2.94 MIL/MM3 Hemoglobin 8.3 GM/DL Hematocrit 24.2 % Mean Corpuscular Volume 82.4 FL Mean Corpuscular Hemoglobin 28.3 PG Mean Corpuscular Hemoglobin 34.3 % Concent Red Cell Distribution Width 13.2 % Platelet Count 336 TH/MM3 Mean Platelet Volume 6.8 FL Laboratory Tests Test 12/26/16 05:01 Sodium Level 138 MEQ/L Potassium Level 3.6 MEQ/L Chloride Level 102 MEQ/L Carbon Dioxide Level 30.7 MEQ/L Anion Gap 5 MEQ/L Blood Urea Nitrogen 9 MG/DL Creatinine 0.97 MG/DL Estimat Glomerular Filtration 79 ML/MIN Rate Random Glucose 150 MG/DL Calcium Level 8.3 MG/DL Imaging Last Impressions Orbit X-Ray 12/24/16 0000 Signed Impressions: Service Date/Time: Saturday, December 24, 2016 10:09 - CONCLUSION: Unremarkable exam. Rikki Boyd MD Foot MRI 12/24/16 0000 Signed Impressions: Service Date/Time: Saturday, December 24, 2016 10:27 - CONCLUSION: 1. No evidence of osteomyelitis. 2. Nonspecific soft tissue inflammatory changes involving the soft tissues along the plantar surface of the foot at the level between the first and second metatarsals. This is most likely cellulitis. Rikki Boyd MD Chest X-Ray 12/23/16 0129 Signed Impressions: Service Date/Time: Friday, December 23, 2016 01:56 - CONCLUSION: No acute disease. Juan Garza MD Foot X-Ray 12/23/16 0000 Signed Impressions: Service Date/Time: Friday, December 23, 2016 03:46 - CONCLUSION: No definite acute bony findings Juan Garza MD Physical Exam CONSTITUTIONAL/GENERAL: This is an adequately nourished patient, in no apparent distress. TUBES/LINES/DRAINS: SKIN: No jaundice, rashes, or lesions. CARDIOVASCULAR: Regular rate and rhythm without murmurs, gallops, or rubs. RESPIRATORY/CHEST: Symmetric, unlabored respirations. Clear to auscultation. GASTROINTESTINAL: Abdomen soft, non-tender, nondistended. No hepato-splenomegaly , or palpable masses. MUSCULOSKELETAL: Extremities without clubbing, cyanosis, or edema. No joint tenderness or effusion noted. No calf tenderness. No mottling or clubbing. STATUS LOCALIS: L foot wioth excelent pedal pls 2/2 R foot plantar incision with ischemic margins, + serosan dc + faint foul odor + erytmea, edema of the foot + ecchymosis Minimla edema, erythema warmth to R martinez noted, no ascending lyymphangitis NEUROLOGICAL: Awake and alert. Motor and sensory grossly within normal limits. Follows commands. Cognitively sharp. Moves all extremities. PSYCHIATRIC: No obvious anxiety/depression. no apparent hallucinations or other psychotic thought process. Assessment & Plan Remarks R foot DFI, no osteo sp I+D op report reviewed: deep abscess in plantar arch area. Necrotic fatty tissue noted and foul odor present. Milky purulent drainage noted. Abscess was down to level of plantar fascia. PCN allergy in the form of rash Persistent fever - source is likley foot infx - cont vanco, - change cefazoline to cefepime, flagyl - repeat clx Lennie Yi MD Dec 27, 2016 16:56
[2016-12-27] MEDS ORDERED: NEOMYCIN/POLYMYXIN 1 ML G.U. IRRIGANT TOPICAL ONE (17:22)
[2016-12-27] MEDS ORDERED: DO NOT ADM ANY ANTICOAGULANT DRUGS PRN (17:51)
--- NOTE | 2016-12-27 17:55 | HHI.PR ---
Immediate Post Op Note Procedure Date: Dec 27, 2016 Pre Op Diagnosis: Abscess R plantar foot Post Op Diagnosis: Same Surgeon: Alonso John DPM Electrocardiogram Technician(s): Staff Procedure: I&D R plantar foot with cultures Findings: Plantar wound from previous I&D communicating to tarsal tunnel area from sub 2nd metatarsal head area down to tendon, plantar fascia, and palpable bone. Subcutaneous tissue with liquefactive necrosis. Blood vessels coagulated. No bleeding tissue noted within wound. Irrigated with 6L NS + Gentamicin. Foul odor present. Milky purulent drainage noted. Wound irrigated, thoroughly, debrided, then packed with xeroform, 4x4, abd, cast padding, srinaht. Recommending vascular evaluation for possible BKA due to lack of viable tissue and nonpalpable pulses, as well as significant progression of infection in the past few days. Complications: None Specimen(s) removed: Culture R foot Estimated blood loss: Minimal Anesthesia: General Drains: None IVF Tourniquet time (min at mmHg) n/a Patient to: PACU Patient Condition: Good Date/Time of Procedure: SEE SURGICAL CARE RECORD Alonso John DPM Dec 27, 2016 17:54
--- NOTE | 2016-12-27 17:58 | HHI.PR ---
Addendum to Inpatient Note Additional Information Contacted by Dr Hernandez 2/ intraoperative findings Rapid deterioration of foot appearance Intrapoperatively pt was found to have extensive gangrenous changes, foot is cold to touch Vascular sx consulted High likleyhood of BKA, foot salvagibility is doubtful Lennie Yi MD Dec 27, 2016 17:58
[2016-12-27] MEDS: metroNIDAZOLE 500 MG INJ 100 ML IV SCH (18:00)
[2016-12-27] MEDS: VANCOMYCIN 1,000 MG/NS 250 ML IV SCH ×2 (18:30)
[2016-12-27] MEDS ORDERED: ENALAPRILAT 2.5 MG/2 ML VIAL IV PUSH PRN (20:00)
[2016-12-27] MEDS: CEFEPIME INJ 2,000 MG in SODIUM CHLORIDE 0.9% INJ 100 ML IV SCH (21:23)
[2016-12-27] MEDS: MORPHINE SULFATE 4 MG/ML INJ IV PRN (21:35)
[2016-12-28] VITALS (7 sets, daily range): BP systolic 112–159; BP diastolic 52–79; PULSE 81–98; RESP 12–24; TEMP 98.2–100; O2SAT 92–94
[2016-12-28] MEDS: metroNIDAZOLE 500 MG INJ 100 ML IV SCH ×4 (02:07→23:56)
[2016-12-28] MEDS: MORPHINE SULFATE 4 MG/ML INJ IV PRN (02:13)
[2016-12-28 04:37] LABS: AUTOMATED NEUTROPHIL # 9.1 TH/MM3 (1.8-7.7); BASOPHIL # 0.1 TH/MM3 (0-0.2); BASOPHIL % 0.7 % (0.0-2.0); EOSINOPHIL # 0.2 TH/MM3 (0-0.4); EOSINOPHIL % 1.5 % (0.0-4.0); HEMATOCRIT 22.5 % (39.0-51.0); HEMO FLAGS DIFF FINAL; LYMPH % 9.4 % (9.0-44.0); LYMPHOCYTE # 1.1 TH/MM3 (1.0-4.8); MEAN CELL VOLUME 83.4 FL (80.0-100.0); MEAN CORPUSCULAR HEMOGLOBIN 28.1 PG (27.0-34.0); MEAN CORPUSCULAR HGB CONC 33.7 % (32.0-36.0); MONO % 8.5 % (0.0-8.0); NEUT % 79.9 % (16.0-70.0); PLATELET COUNT 314 TH/MM3 (150-450); RED CELL DISTRIBUTION WIDTH 13.1 % (11.6-17.2); WHITE BLOOD COUNT 11.4 TH/MM3 (4.0-11.0)
[2016-12-28] MEDS: VANCOMYCIN 1,000 MG/NS 250 ML IV SCH ×4 (04:45→17:08)
[2016-12-28] MEDS: ACETAMINOPHEN/HYDROcodone 325 MG/5 MG TAB PO PRN (04:46)
[2016-12-28 04:57] LABS: BICARBONATE 29.6 MEQ/L (21.0-32.0); POTASSIUM 3.5 MEQ/L (3.5-5.1)
[2016-12-28] MEDS: INSULIN ASPART SUPPLEMENTAL SCALE SQ SCH ×4 (04:58→20:39)
[2016-12-28] MEDS: HEPARIN SODIUM - SQ 10,000 UNITS/ML VIAL SQ SCH ×2 (08:37→20:16)
[2016-12-28] MEDS: DOCUSATE SODIUM 50 MG/SENNA 8.6 MG TAB PO SCH ×2 (08:37→20:16)
[2016-12-28] MEDS: CEFEPIME INJ 2,000 MG in SODIUM CHLORIDE 0.9% INJ 100 ML IV SCH ×2 (08:38→20:12)
[2016-12-28] MEDS: SODIUM CHLORIDE 0.9% FLUSH 10 ML FLUSH IV FLUSH SCH ×2 (08:38→20:12)
--- NOTE | 2016-12-28 11:41 | PD.CAR.PN ---
CVT Progress Note Subjective/Hospital Course: 56-year-old patient with diabetes and severe infection of the right foot with a plantar abscess On physical exam patient has good femoral and popliteal pulses but I'm sure he has small vessel disease below the level of the knee although on the left side he has strong dissolves pedis posterior tibial on Doppler On the right side patient has dressing so vessels cannot be palpated or auscultated however he has good capillary refill I will order CTA with runoff to get a baseline study but I doubt that patient will require any vascular reconstruction in order to improve this healing Patient will need a wound VAC and he'll take a while for all this to heal up Full consult to follow Thanks J Objective: Vital Signs Date Time Temp Pulse Resp B/P Pulse Ox O2 Delivery O2 Flow Rate FiO2 12/28/16 08:00 98.2 81 12 112/52 94 12/28/16 04:00 98.7 88 20 139/69 94 12/28/16 00:00 100.0 95 20 146/67 94 12/27/16 22:39 99 21 12/27/16 20:24 92 12/27/16 20:00 98.5 92 18 172/79 99 12/27/16 18:10 92 18 117/56 99 Room Air 12/27/16 17:52 98.4 84 18 99/54 100 Nasal Cannula 2 12/27/16 16:22 98.4 89 17 138/70 97 12/27/16 16:00 98.4 89 17 138/70 97 12/27/16 14:41 140/78 12/27/16 13:47 186/84 12/27/16 12:00 97.7 81 16 85/55 97 89/49 Labs: Laboratory Tests Test 12/28/16 04:06 White Blood Count 11.4 TH/MM3 (4.0-11.0) Red Blood Count 2.70 MIL/MM3 (4.50-5.90) Hemoglobin 7.6 GM/DL (13.0-17.0) Hematocrit 22.5 % (39.0-51.0) Mean Corpuscular Volume 83.4 FL (80.0-100.0) Mean Corpuscular Hemoglobin 28.1 PG (27.0-34.0) Mean Corpuscular Hemoglobin 33.7 % Concent (32.0-36.0) Red Cell Distribution Width 13.1 % (11.6-17.2) Platelet Count 314 TH/MM3 (150-450) Mean Platelet Volume 6.7 FL (7.0-11.0) Neutrophils (%) (Auto) 79.9 % (16.0-70.0) Lymphocytes (%) (Auto) 9.4 % (9.0-44.0) Monocytes (%) (Auto) 8.5 % (0.0-8.0) Eosinophils (%) (Auto) 1.5 % (0.0-4.0) Basophils (%) (Auto) 0.7 % (0.0-2.0) Neutrophils # (Auto) 9.1 TH/MM3 (1.8-7.7) Lymphocytes # (Auto) 1.1 TH/MM3 (1.0-4.8) Monocytes # (Auto) 1.0 TH/MM3 (0-0.9) Eosinophils # (Auto) 0.2 TH/MM3 (0-0.4) Basophils # (Auto) 0.1 TH/MM3 (0-0.2) CBC Comment DIFF FINAL Differential Comment Sodium Level 137 MEQ/L (136-145) Potassium Level 3.5 MEQ/L (3.5-5.1) Chloride Level 100 MEQ/L (98-107) Carbon Dioxide Level 29.6 MEQ/L (21.0-32.0) Anion Gap 7 MEQ/L (5-15) Blood Urea Nitrogen 12 MG/DL (7-18) Creatinine 0.89 MG/DL (0.60-1.30) Estimat Glomerular Filtration 88 ML/MIN (>89) Rate Random Glucose 150 MG/DL (74-106) Calcium Level 8.0 MG/DL (8.5-10.1) Result Diagram: 12/28/16 0406 12/28/16 0406 Facundo Mercado MD Dec 28, 2016 11:41
--- NOTE | 2016-12-28 13:37 | PD.POD ---
Subjective Podiatric Problems R plantar foot abscess, s/p I&D 12/24/16 Alvaro s/p I&D 12/27/16 Alvaro Past Med/Surg/Social History Social History Smoking Status: Never Smoker Objective Vital Signs Vital Signs Date Time Temp Pulse Resp B/P Pulse Ox O2 Delivery O2 Flow Rate FiO2 12/28/16 08:00 98.2 81 12 112/52 94 12/28/16 04:00 98.7 88 20 139/69 94 12/28/16 00:00 100.0 95 20 146/67 94 12/27/16 22:39 99 21 12/27/16 20:24 92 12/27/16 20:00 98.5 92 18 172/79 99 12/27/16 18:10 92 18 117/56 99 Room Air 12/27/16 17:52 98.4 84 18 99/54 100 Nasal Cannula 2 12/27/16 16:22 98.4 89 17 138/70 97 12/27/16 16:00 98.4 89 17 138/70 97 12/27/16 14:41 140/78 12/27/16 13:47 186/84 Coded Allergies: Penicillin (Verified Allergy, Unknown, 12/23/16) Physical Exam Remarks R foot bandage clean, dry, intact. Capillary refill to digits. Assessment & Plan A/P Abscess R plantar foot, s/p I&D 12/24/16 Alvaro, s/p I&D 12/27/16 Alvaro Wound currently packed open Plan to repeat I&D with wound vac tomorrow morning NPO after midnight Alonso John DPM Dec 28, 2016 13:37
--- NOTE | 2016-12-28 13:41 | HHI.PR ---
Subjective Remarks Follow-up Foot infection Status post debridement 12/27/16, gangrenous, there is a concern for basilar compromise. Patient's pain is controlled, minimal, no fever or chills. No nausea or vomiting. Afebrile. Objective Vitals Vital Signs Date Time Temp Pulse Resp B/P Pulse Ox O2 Delivery O2 Flow Rate FiO2 12/28/16 08:00 98.2 81 12 112/52 94 12/28/16 04:00 98.7 88 20 139/69 94 12/28/16 00:00 100.0 95 20 146/67 94 12/27/16 22:39 99 21 12/27/16 20:24 92 12/27/16 20:00 98.5 92 18 172/79 99 12/27/16 18:10 92 18 117/56 99 Room Air 12/27/16 17:52 98.4 84 18 99/54 100 Nasal Cannula 2 12/27/16 16:22 98.4 89 17 138/70 97 12/27/16 16:00 98.4 89 17 138/70 97 12/27/16 14:41 140/78 12/27/16 13:47 186/84 I/O 12/27/16 12/27/16 12/27/16 12/28/16 12/28/16 12/28/16 07:00 15:00 23:00 07:00 15:00 23:00 Intake Total 888 ml 1905 ml 1205 ml Output Total 1150 ml 550 ml 1100 ml 300 ml Balance -262 ml -550 ml 805 ml 905 ml Intake Oral 0 ml 480 ml 480 ml IV Total 888 ml 725 ml 725 ml Other 700 ml Output Urine Total 1150 ml 550 ml 1075 ml 300 ml Estimated Blood Loss 25 ml # Voids 1 # Bowel Movements 0 1 Result Diagram: 12/28/16 0406 12/28/16 0406 Objective Remarks GENERAL: This is a well-nourished, well-developed patient, in no apparent distress. CARDIOVASCULAR: Normal rate and regular rhythm without murmurs, gallops, or rubs. RESPIRATORY: Good respiratory efforts. Breath sounds equal and clear to auscultation bilaterally. GASTROINTESTINAL: Abdomen soft, non-tender, non-distended. Normal active bowel sounds MUSCULOSKELETAL: R foot has a post op dressing. toes are neurovascularly intact. NEURO: Alert & Oriented x4 to person, place, time, situation. Moves all ext x4 PSYCH: Appropriate mood and affect. A/P Problem List: (1) Sepsis ICD Code: A41.9 Status: Acute (2) Cellulitis ICD Code: L03.90 Status: Acute (3) CESAR (acute kidney injury) ICD Code: N17.9 Status: Acute (4) DM (diabetes mellitus) ICD Code: E11.9 Status: Acute Assessment and Plan 56-year-old admitted with: Sepsis secondary to right foot infection for an abscess Superficial wound cultures growing group D enterococcus and group B strep - Patient is status post I&D of right foot plantar abscess. Per podiatry, Necrotic fatty tissue noted and foul odor present. Milky purulent drainage noted. Abscess was down to level of plantar fascia and possible vascular compromise. - MRI does not reveal any osteomyelitis. Vascular surgery consult, patient might need amputation, per vascular surgery, discussed with Dr. Smith, might just need a wound VAC at this point had not amputation, he will order CT runoff. Infectious disease following, continue vancomycin, cefepime and Flagyl for now per infectious disease. CESAR: Secondary to sepsis and dehydration. Resolved with IV fluid - Avoid nephrotoxins. DM: Recent diagnosis of DM on previous admit, Hgb A1c 8.0 on 10/10/16. Continue to hold metformin. Sliding scale w/ Accu-Cheks. DVT Prophylaxis: Heparin sq Discharge Planning This just once cleared by podiatry in 1-2 days. Problem Qualifiers (1) Cellulitis: Qualified Code: L03.115 - Cellulitis of right lower extremity Ike Borges MD Dec 28, 2016 13:41
[2016-12-28] MEDS ORDERED: IOHEXOL 350 MG/ML 10 ML VIAL (for RAD DIAG) IV ONE (17:56)
--- NOTE | 2016-12-28 19:41 | RADRPT ---
EXAM DATE/TIME: 12/28/2016 17:56 [facility] COMPARISON: MRI FOOT RIGHT W & W/O CONTRAST, December 24, 2016, 10:27. INDICATIONS : Right foot ulcer. IV CONTRAST: 99 cc Omnipaque 350 (iohexol) IV RADIATION DOSE: 2.31 CTDIvol (mGy) MEDICAL HISTORY : Hypertension. Cardiovascular disease diabetes SURGICAL HISTORY : Cholecystectomy. ENCOUNTER: Initial ACUITY: 1 day PAIN SCALE: 6/10 LOCATION: Right foot TECHNIQUE: Volumetric scanning was performed using a multi-row detector CT scanner. The data was post processed with a variety of visualization algorithms including full volume maximum intensity projection, multi -planar sliding thin slab reformation, curved planar reformation, and surface rendering techniques. Using automated exposure control and adjustment of the mA and/or kV according to patient size, radiat ion dose was kept as low as reasonably achievable to obtain optimal diagnostic quality images. FINDINGS: Aorta/inflow: The aorta and inflow vessels are widely patent. No ulcerations. The celiac, SMA, NAVNEET, and renal arter ies are patent. Right lower extremity: Scattered calcified and noncalcified plaque throughout the SFA and popliteal artery. Multiple scatter ed areas of mild luminal narrowing observed. The most significant stenosis is 50% within the above-th e-knee popliteal artery just distal to the abductor canal. 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 T he posterior tibial artery shows multiple occlusions throughout its course but does form very small c aliber plantar vessels. The anterior tibial artery shows tandem short segment occlusions within its m id aspect. It does form a small caliber dorsalis pedis artery. The peroneal artery shows a high grade stenosis at its origin with multiple short segment occlusions throughout its course. Left lower extremity: Diffuse calcified and noncalcified atheromatous plaque throughout the outflow vessels without a hemod ynamically significant stenosis observed. There is variant anatomy with the posterior tibial artery a rising from the popliteal at the level of the knee joint. The posterior tibial artery is heavily dise ased with multiple high-grade stenoses proximally as well as below the medial malleolus. The anterior tibial artery is heavily diseased with at least 3 short segment occlusions within its mid aspect. Pe roneal artery is diffusely small in caliber. The dorsalis pedis and plantar vessels are opacified wit h contrast. Other structures: Soft tissue air and edema seen involving the medial right foot. Tiny bilateral pleural effusions with associated atelectasis. Scattered colonic diverticuli without acute inflammation. CONCLUSION: 1. Patent inflow. 2. Right lower extremity with 50% stenosis of the [id number] popliteal artery and severe trifurca tion disease without straight line flow to the foot. 3. Left lower extremity with patent outflow and severe trifurcation disease. No straight line flow to the foot. 4. Soft tissue wound involving the medial right foot. 5. Tiny bilateral pleural effusions with associated atelectasis. Marshal Mendez Jr., MD on December 28, 2016 at 19:09 Board Certified Radiologist. This report was verified electronically.
[2016-12-28] MEDS: SODIUM CHLOR 0.9% 1000 ML INJ 1,000 ML IV SCH (20:12)
[2016-12-29] VITALS (8 sets, daily range): BP systolic 135–162; BP diastolic 68–74; PULSE 83–92; RESP 15–22; TEMP 98.6–100.6; O2SAT 92–97
[2016-12-29] MEDS: INSULIN ASPART SUPPLEMENTAL SCALE SQ SCH ×4 (05:43→21:00)
[2016-12-29] MEDS ORDERED: PHARMACY ORDERED LAB ONE (05:45)
[2016-12-29] MEDS ORDERED: NEOMYCIN/POLYMYXIN 1 ML G.U. IRRIGANT IR ONE ×2 (07:28→08:56)
[2016-12-29] MEDS: HEPARIN SODIUM - SQ 10,000 UNITS/ML VIAL SQ SCH ×2 (07:56→20:44)
[2016-12-29] MEDS: SODIUM CHLORIDE 0.9% FLUSH 10 ML FLUSH IV FLUSH SCH ×2 (07:58→20:44)
[2016-12-29] MEDS: CEFEPIME INJ 2,000 MG in SODIUM CHLORIDE 0.9% INJ 100 ML IV SCH ×2 (07:58→20:44)
[2016-12-29] MEDS: metroNIDAZOLE 500 MG INJ 100 ML IV SCH ×2 (07:58→16:27)
[2016-12-29] MEDS: DOCUSATE SODIUM 50 MG/SENNA 8.6 MG TAB PO SCH ×2 (07:58→20:44)
[2016-12-29] MEDS ORDERED: BUPIVACAINE HCL PF 0.5% 30 ML VIAL ONE (09:06)
[2016-12-29] MEDS: SODIUM CHLOR 0.9% 1000 ML INJ 1,000 ML IV SCH (10:11)
[2016-12-29] MEDS ORDERED: DO NOT ADM ANY ANTICOAGULANT DRUGS PRN (10:30)
--- NOTE | 2016-12-29 10:40 | HHI.PR ---
Immediate Post Op Note Procedure Date: Dec 29, 2016 Pre Op Diagnosis: Infection R foot Post Op Diagnosis: Same Surgeon: Alonso John DPM Home Performance Consultant(s): Staff Procedure: I&D R foot with wound vac Findings: Consistent with diagnosis. R plantar foot wound encompassing plantar 1st, 2nd, 3rd MTP joint areas, continuing proximally to medial arch/tarsal tunnel area with superifical and deep flexor tendons and plantar fascia necrotic in base of wound. Secondary dorsal wound necrotic to dorsomedial foot at 1st/2nd/3rd met- cuneiform joint areas and down to extensor tendons. All necrotic tissue removed from respective areas with #15 blade and rongeur and minimal bleeding occurred. Functional capacity of foot grossly compromised with removal of all tendinous structures in plantar foot. Versajet utilized to remove further necrotic tissue and irrigated with 3L NS before wound vac applied R foot with bridge to connect dorsal to plantar foot areas. Wound vac set at [address] Mercado consulted intraoperatively to observe extent of soft tissue damage to give opinion on need for BKA. Confirmed patient will likely need BKA. He will evaluate patient later in the week and discuss with patient. Continue T//Fri vac changed R foot in the meantime. Additional Information: n/a Complications: None Estimated blood loss: 50mL Anesthesia: General Drains: None IVF Tourniquet time (min at mmHg) n/a Patient to: PACU Patient Condition: Good Date/Time of Procedure: SEE SURGICAL CARE RECORD Alonso John DPM Dec 29, 2016 10:40
--- NOTE | 2016-12-29 11:14 | HHI.FF ---
Face to Face Verification Diagnosis: (1) Cellulitis (2) Foot ulcer due to secondary DM Home Health Nursing Order: Wound care and dressing changes (VAC) Nursing assessment with vital signs I have seen patient Matthew Hardin on 12/29/16. My clinical findings support the need for the requested home health care services because: Limited ability to care for self I certify that my clinical findings support that this patient is homebound because: Post-op weakness Unsteady gait/balance Ike Borges MD Dec 29, 2016 11:14
[2016-12-29] MEDS: VANCOMYCIN 1,000 MG/NS 250 ML IV SCH ×2 (11:36)
[2016-12-29] MEDS ORDERED: ONDANSETRON HCL 4 MG/2 ML VIAL IV PUSH ONE (12:00)
[2016-12-29] MEDS ORDERED: PHENYLEPH/NS 1000 MCG/10 ML SYR IV ONE (12:00)
[2016-12-29] MEDS ORDERED: PROPOFOL 200 MG/20 ML AMP IV ONE (12:00)
--- NOTE | 2016-12-29 14:00 | PD.CAR.PN ---
CVT Progress Note Subjective/Hospital Course: 56-year-old patient with diabetes and severe infection of the right foot with a plantar abscess On physical exam patient has good femoral and popliteal pulses but I'm sure he has small vessel disease below the level of the knee although on the left side he has strong dissolves pedis posterior tibial on Doppler On the right side patient has dressing so vessels cannot be palpated or auscultated however he has good capillary refill I will order CTA with runoff to get a baseline study but I doubt that patient will require any vascular reconstruction in order to improve this healing Patient will need a wound VAC and he'll take a while for all this to heal up Full consult to follow Thanks J 12/29/16 CT scan reviewed Patient has diffuse calcific changes throughout his vascular system but no hemodynamically significant inflow stenosis. There is about 50% stenosis of the distal superficial femoral/popliteal artery but I do not see this is a hemodynamically significant event at this time. Patient does have severe distal disease with no straight shot to the foot with bits and pieces of anterior and posterior tibial arteries and multilevel occlusions of both on both sides I've seen today in the operating room the right foot and after debridement there is not much left of the plantar surface of the foot. Patient will have a wound VAC placed and we'll see how he does in next few days but there is a very high chance the patient will end up with below-knee amputation I'll discuss this with the patient at length Objective: Vital Signs Date Time Temp Pulse Resp B/P Pulse Ox O2 Delivery O2 Flow Rate FiO2 12/29/16 12:00 98.6 83 22 137/71 93 12/29/16 10:30 98.5 82 15 144/63 93 Room Air 12/29/16 10:15 81 14 147/65 92 Room Air 12/29/16 10:00 98.5 82 14 119/57 92 Room Air 12/29/16 08:51 95 21 12/29/16 08:00 98.9 87 16 150/73 96 12/29/16 04:00 100.0 89 20 158/74 93 12/29/16 00:00 100.6 92 20 162/73 93 12/28/16 20:00 100.0 98 20 159/79 94 12/28/16 16:00 100.0 92 24 116/60 92 Result Diagram: 12/28/16 0406 12/28/16 0406 Facundo Mercado MD Dec 29, 2016 14:00
--- NOTE | 2016-12-29 14:13 | HHI.PR ---
Subjective Remarks Follow-up for right foot infection Status post debridement and wound VAC placement this morning. No overnight events. Afebrile. Pain is controlled. Objective Vitals Vital Signs Date Time Temp Pulse Resp B/P Pulse Ox O2 Delivery O2 Flow Rate FiO2 12/29/16 12:00 98.6 83 22 137/71 93 12/29/16 10:30 98.5 82 15 144/63 93 Room Air 12/29/16 10:15 81 14 147/65 92 Room Air 12/29/16 10:00 98.5 82 14 119/57 92 Room Air 12/29/16 08:51 95 21 12/29/16 08:00 98.9 87 16 150/73 96 12/29/16 04:00 100.0 89 20 158/74 93 12/29/16 00:00 100.6 92 20 162/73 93 12/28/16 20:00 100.0 98 20 159/79 94 12/28/16 16:00 100.0 92 24 116/60 92 I/O 12/28/16 12/28/16 12/28/16 12/29/16 12/29/16 12/29/16 07:00 15:00 23:00 07:00 15:00 23:00 Intake Total 1205 ml 860 ml 1050 ml 705 ml 800 ml Output Total 300 ml 350 ml 600 ml 1050 ml 50 ml Balance 905 ml 510 ml 450 ml -345 ml 750 ml Intake Oral 480 ml 860 ml 240 ml 0 ml IV Total 725 ml 810 ml 705 ml Other 800 ml Output Urine Total 300 ml 350 ml 600 ml 1050 ml Estimated Blood Loss 50 ml # Bowel Movements 0 Result Diagram: 12/28/16 0406 12/28/16 0406 Objective Remarks GENERAL: This is a well-nourished, well-developed patient, in no apparent distress. CARDIOVASCULAR: Normal rate and regular rhythm without murmurs, gallops, or rubs. RESPIRATORY: Good respiratory efforts. Breath sounds equal and clear to auscultation bilaterally. GASTROINTESTINAL: Abdomen soft, non-tender, non-distended. Normal active bowel sounds MUSCULOSKELETAL: R foot has a post op dressing in place, wiggles toes, wound VAC in place NEURO: Alert & Oriented x4 to person, place, time, situation. Moves all ext x4 PSYCH: Appropriate mood and affect. A/P Problem List: (1) Sepsis ICD Code: A41.9 Status: Acute (2) Cellulitis ICD Code: L03.90 Status: Acute (3) CESAR (acute kidney injury) ICD Code: N17.9 Status: Acute (4) DM (diabetes mellitus) ICD Code: E11.9 Status: Acute Assessment and Plan 56-year-old admitted with: Sepsis secondary to right foot infection for an abscess Superficial wound cultures growing group D enterococcus and group B strep - Patient is status post I&D of right foot plantar abscess. Per podiatry, Necrotic fatty tissue noted and foul odor present. Milky purulent drainage noted. Abscess was down to level of plantar fascia and possible vascular compromise. - MRI does not reveal any osteomyelitis. Vascular surgery consulted, per vascular surgery, no vascular intervention needed, CTA runoff showed patency of major vessels. Status post wound VAC placement today.Infectious disease following, continue vancomycin, cefepime and Flagyl for now per infectious disease. CESAR: Secondary to sepsis and dehydration. Resolved with IV fluid - Avoid nephrotoxins. DM: Recent diagnosis of DM on previous admit, Hgb A1c 8.0 on 10/10/16. Continue to hold metformin. Sliding scale w/ Accu-Cheks. DVT Prophylaxis: Heparin sq Discharge Planning Discharge once cleared by podiatry and infectious disease. Will likely need home health care. Problem Qualifiers (1) Cellulitis: Qualified Code: L03.115 - Cellulitis of right lower extremity Ike Borges MD Dec 29, 2016 14:13
--- NOTE | 2016-12-29 15:03 | MB ---
cc: [facility] DATE OF CONSULTATION: 12/29/2016. REASON FOR CONSULTATION: Infection of the right foot. Diabetes mellitus. HISTORY OF PRESENT ILLNESS: This 56-year-old male states he had a plantar blister about a month ago and now presents with a huge abscess of the right foot. The patient is known to be diabetic for many years. He was diagnosed with osteomyelitis and mixed growth. He underwent debridement and drainage by Dr. John; hence, the vascular consultation. PAST MEDICAL HISTORY: The past medical history is that of: 1. Cataract surgery. 2. Cholecystectomy. 3. Hypertension. 4. Diabetes mellitus. MEDICATIONS: On the record. SOCIAL HISTORY: The patient does not smoke. He drinks socially. PHYSICAL EXAMINATION: GENERAL: The physical examination reveals a 56-year-old male. HEAD, EYES, EARS, NOSE, THROAT: Normocephalic. No trauma to the head. Pupils are equal and reactive. Extraocular muscles are intact. No icterus. NECK: The neck is supple. Bilateral carotid pulses. Right-sided carotid bruit. CHEST: Bilateral breath sounds. HEART: Regular rhythm. ABDOMEN: Abdomen soft. Active bowel sounds. No rebound. No guarding. No masses. EXTREMITIES: The patient has palpable femoral pulses. He has Dopplerable popliteal pulses. On the left side, he has weak posterior tibial and a weak dorsalis pedis pulse clearly by reconstitution. Capillary refill is decreased. On the right side, the patient has a dressing on neck and I cannot get any pulses because he has surgery. However toes seem to be pink and warm. NEUROLOGIC: Neurologically, grossly the patient is intact. He has obvious decreased sensation of both plantar surfaces. IMPRESSION AND RECOMMENDATIONS: I reviewed laboratory and diagnostic procedures. This gentleman had on my request a CTA with runoff and this reveals diffuse disease with about 50% stenosis of the distal superficial femoral artery as far as inflow is concerned. As far as the outflow is concerned on the other hand, the situation is much more dire. 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 There is no straight flow to the foot in any of the vessels. This is severe disease that is not amenable to any endovascular stenting or approach and the best we could do would be to balloon dilate the distal SFA / popliteal artery where we could not put a stent anyway because it is at the knee level but I do not believe this medically significant. As far as the foot is concerned, I have seen the foot now in the OR since the consult was received and basically the patient is missing half of his plantar surface of the foot. There is a very small chance this is going to heal. I agree with wound VAC placement and we will see how the patient does in the next week or so but there is a high chance the patient will need below-knee amputation on this. Facundo ARELLANO/DUKE /1:57 PM /2:53 PM
[2016-12-30] VITALS (7 sets, daily range): BP systolic 129–166; BP diastolic 62–80; PULSE 82–92; RESP 18–20; TEMP 97.8–99.8; O2SAT 93–98
[2016-12-30] MEDS: metroNIDAZOLE 500 MG INJ 100 ML IV SCH ×4 (00:03→22:37)
[2016-12-30] MEDS: VANCOMYCIN 1,000 MG/NS 250 ML IV SCH ×6 (00:03→22:37)
[2016-12-30] MEDS: INSULIN ASPART SUPPLEMENTAL SCALE SQ SCH ×4 (05:30→21:00)
[2016-12-30] MEDS: CEFEPIME INJ 2,000 MG in SODIUM CHLORIDE 0.9% INJ 100 ML IV SCH ×2 (08:30→20:15)
[2016-12-30] MEDS: HEPARIN SODIUM - SQ 10,000 UNITS/ML VIAL SQ SCH ×2 (08:31→20:16)
[2016-12-30] MEDS: SODIUM CHLORIDE 0.9% FLUSH 10 ML FLUSH IV FLUSH SCH ×2 (08:31→20:15)
[2016-12-30] MEDS: DOCUSATE SODIUM 50 MG/SENNA 8.6 MG TAB PO SCH ×2 (08:31→20:16)
[2016-12-30] MEDS ORDERED: PHARMACY ORDERED LAB ONE (11:45)
--- NOTE | 2016-12-30 13:56 | HHI.PR ---
Subjective Remarks Patient seen in follow-up for right foot infection. Status post sepsis. Reports he is feeling well. No fevers or chills. Pain is controlled. Objective Vitals Vital Signs Date Time Temp Pulse Resp B/P Pulse Ox O2 Delivery O2 Flow Rate FiO2 12/30/16 12:00 99.3 90 18 153/70 97 12/30/16 09:37 85 12/30/16 08:00 98.4 92 18 133/62 96 12/30/16 05:14 99.6 89 20 155/67 93 12/30/16 00:00 99.8 91 20 152/70 98 12/29/16 20:00 99.0 85 20 143/69 97 12/29/16 19:02 87 12/29/16 16:00 98.6 85 15 135/68 92 I/O 12/29/16 12/29/16 12/29/16 12/30/16 12/30/16 12/30/16 07:00 15:00 23:00 07:00 15:00 23:00 Intake Total 705 ml 1780 ml 955 ml 865 ml 870 ml Output Total 1050 ml 850 ml 1545 ml 1100 ml 10 ml Balance -345 ml 930 ml -590 ml -235 ml 860 ml Intake Oral 0 ml 480 ml 240 ml 240 ml IV Total 705 ml 500 ml 715 ml 625 ml 870 ml Other 800 ml Output Urine Total 1050 ml 750 ml 1525 ml 1100 ml Drainage Total 50 ml 20 ml 0 ml 10 ml Estimated Blood Loss 50 ml # Bowel Movements 0 0 0 Result Diagram: 12/28/16 0406 12/30/16 0419 Objective Remarks GENERAL: This is a well-nourished, well-developed patient, in no apparent distress. CARDIOVASCULAR: Normal rate and regular rhythm without murmurs, gallops, or rubs. RESPIRATORY: Good respiratory efforts. Breath sounds equal and clear to auscultation bilaterally. GASTROINTESTINAL: Abdomen soft, non-tender, non-distended. Normal active bowel sounds MUSCULOSKELETAL: R foot with wound VAC in place, draining scant serosanguineous fluid. NEURO: Alert & Oriented x4 to person, place, time, situation. Moves all ext x4 PSYCH: Appropriate mood and affect. A/P Problem List: (1) Sepsis ICD Code: A41.9 Status: Acute (2) Cellulitis ICD Code: L03.90 Status: Acute (3) CESAR (acute kidney injury) ICD Code: N17.9 Status: Acute (4) DM (diabetes mellitus) ICD Code: E11.9 Status: Acute Assessment and Plan 56-year-old admitted with: Sepsis secondary to right foot infection for an abscess: Sepsis resolved Superficial wound cultures growing group D enterococcus and group B strep - Patient is status post I&D of right foot plantar abscess. Per podiatry, Necrotic fatty tissue noted and foul odor present. Milky purulent drainage noted. Abscess was down to level of plantar fascia and possible vascular compromise. - MRI does not reveal any osteomyelitis. Vascular surgery consulted, per vascular surgery, no vascular intervention needed, CTA runoff showed patency of major vessels. Status post wound VAC placement today. - Infectious disease following, continue vancomycin, cefepime and Flagyl for now per infectious disease. CESAR: Secondary to sepsis and dehydration. Resolved with IV fluid - Avoid nephrotoxins. DM: Recent diagnosis of DM on previous admit, Hgb A1c 8.0 on 10/10/16. Continue to hold metformin. Sliding scale w/ Accu-Cheks. DVT Prophylaxis: Heparin sq Discharge Planning Continue IV antibiotics. Problem Qualifiers (1) Cellulitis: Qualified Code: L03.115 - Cellulitis of right lower extremity Kortney Cartagean MD Dec 30, 2016 13:56
--- NOTE | 2016-12-30 15:23 | PD.CAR.PN ---
CVT Progress Note Subjective/Hospital Course: 56-year-old patient with diabetes and severe infection of the right foot with a plantar abscess On physical exam patient has good femoral and popliteal pulses but I'm sure he has small vessel disease below the level of the knee although on the left side he has strong dissolves pedis posterior tibial on Doppler On the right side patient has dressing so vessels cannot be palpated or auscultated however he has good capillary refill I will order CTA with runoff to get a baseline study but I doubt that patient will require any vascular reconstruction in order to improve this healing Patient will need a wound VAC and he'll take a while for all this to heal up Full consult to follow Thanks J 12/29/16 CT scan reviewed Patient has diffuse calcific changes throughout his vascular system but no hemodynamically significant inflow stenosis. There is about 50% stenosis of the distal superficial femoral/popliteal artery but I do not see this is a hemodynamically significant event at this time. Patient does have severe distal disease with no straight shot to the foot with bits and pieces of anterior and posterior tibial arteries and multilevel occlusions of both on both sides I've seen today in the operating room the right foot and after debridement there is not much left of the plantar surface of the foot. Patient will have a wound VAC placed and we'll see how he does in next few days but there is a very high chance the patient will end up with below-knee amputation I'll discuss this with the patient at length 12/30/16 I discussed the situation with the patient today He has severe peripheral vascular disease as above noted. There is nothing at this point to reconstruct her open up Dear bits and pieces of the anterior tibial posterior tibial arteries bilateral will multilevel occlusions and dissipation of the vessels as the ankle approaches. Patient is now missing half of his right foot essentially and tarsals and metatarsals are exposed. The chance of this healing is very very minimal and I've explained to the patient a most likely will require below-knee amputation and there is about 30% chance that he'll require an above-knee amputation within the year. Patient has stents that will allow it for about a week of wound VAC and reevaluate this just to dispense with any doubt as far as the further procedure planning Objective: Vital Signs Date Time Temp Pulse Resp B/P Pulse Ox O2 Delivery O2 Flow Rate FiO2 12/30/16 12:00 99.3 90 18 153/70 97 6/5/17 09:37 85 12/30/16 08:00 98.4 92 18 133/62 96 12/30/16 05:14 99.6 89 20 155/67 93 12/30/16 00:00 99.8 91 20 152/70 98 12/29/16 20:00 99.0 85 20 143/69 97 12/29/16 19:02 87 12/29/16 16:00 98.6 85 15 135/68 92 Labs: Laboratory Tests Test 12/30/16 12/30/16 04:19 11:45 Creatinine 0.80 MG/DL (0.60-1.30) Estimat Glomerular Filtration 99 ML/MIN (>89) Rate Vancomycin Level Trough 12.2 MCG/ML (5.0-10.0) Result Diagram: 12/28/16 0406 12/30/16 0419 Facundo Mercado MD Dec 30, 2016 15:23
--- NOTE | 2016-12-30 17:25 | HHI.IDPN ---
Subjective Subjective Remarks dw Mayela Hernandez, Rogelio Pt developped ischemic necrosis of R foot soft tissues He has severe trifurcation dz, Dr Smith is ff having low grade fever over the w/e No new co no diarrhe, no N/V New op clx + for B frag Antibiotics cefepime flagyl vanco Allergies: Coded Allergies: Penicillin (Verified Allergy, Unknown, 12/23/16) Objective . Vital Signs Date Time Temp Pulse Resp B/P Pulse Ox O2 Delivery O2 Flow Rate FiO2 12/30/16 16:00 97.8 82 18 166/75 93 162/80 12/30/16 12:00 99.3 90 18 153/70 97 12/30/16 09:37 85 12/30/16 08:00 98.4 92 18 133/62 96 12/30/16 05:14 99.6 89 20 155/67 93 12/30/16 00:00 99.8 91 20 152/70 98 12/29/16 20:00 99.0 85 20 143/69 97 12/29/16 19:02 87 12/29/16 12/29/16 12/30/16 15:00 23:00 07:00 Intake Total 1780 ml 955 ml 865 ml Output Total 850 ml 1545 ml 1100 ml Balance 930 ml -590 ml -235 ml Intake Oral 480 ml 240 ml 240 ml IV Total 500 ml 715 ml 625 ml Other 800 ml Output Urine Total 750 ml 1525 ml 1100 ml Drainage Total 50 ml 20 ml 0 ml Estimated Blood Loss 50 ml # Bowel Movements 0 0 0 . Laboratory Tests Test 12/30/16 04:19 Creatinine 0.80 MG/DL Estimat Glomerular Filtration 99 ML/MIN Rate Microbiology Date/Time Procedure Status Source Growth 12/27/16 17:22 Gram Stain - Final Complete Abscess Foot 12/27/16 17:22 Wound Culture - Final Complete Bacteroides Sp B. Frag Group 12/27/16 17:22 Acid Fast Stain - Final Resulted Abscess Foot NO ACID FAST BACILLI SEEN 12/27/16 17:22 Mycobacterial Culture Resulted Abscess Foot Pending 12/27/16 17:22 Fungal Smear - Final Resulted Abscess Foot NO FUNGAL ELEMENTS SEEN. 12/27/16 17:22 Fungal Culture Resulted Abscess Foot Pending Imaging Last Impressions Aorta w/Runoff CTA 12/28/16 0000 Signed Impressions: Service Date/Time: Wednesday, December 28, 2016 17:56 - CONCLUSION: 1. Patent inflow. 2. Right lower extremity with 50%% stenosis of the [id number] popliteal artery and severe trifurcation disease without straight line flow to the foot. 3. Left lower extremity with patent outflow and severe trifurcation disease. No straight line flow to the foot. 4. Soft tissue wound involving the medial right foot. 5. Tiny bilateral pleural effusions with associated atelectasis. Marshal Mendez Jr., MD Orbit X-Ray 12/24/16 0000 Signed Impressions: Service Date/Time: Saturday, December 24, 2016 10:09 - CONCLUSION: Unremarkable exam. Rikki Boyd MD Foot MRI 12/24/16 Signed Impressions: Service Date/Time: Saturday, December 24, 2016 10:27 - CONCLUSION: 1. No evidence of osteomyelitis. 2. Nonspecific soft tissue inflammatory changes involving the soft tissues along the plantar surface of the foot at the level between the first and second metatarsals. This is most likely cellulitis. Rikki Boyd MD Chest X-Ray 12/23/16 0129 Signed Impressions: Service Date/Time: Friday, December 23, 2016 01:56 - CONCLUSION: No acute disease. Juan Garza MD Foot X-Ray 12/23/16 0000 Signed Impressions: Service Date/Time: Friday, December 23, 2016 03:46 - CONCLUSION: No definite acute bony findings Juan Garza MD Physical Exam CONSTITUTIONAL/GENERAL: This is an adequately nourished patient, in no apparent distress. TUBES/LINES/DRAINS: SKIN: No jaundice, rashes, or lesions. CARDIOVASCULAR: Regular rate and rhythm without murmurs, gallops, or rubs. RESPIRATORY/CHEST: Symmetric, unlabored respirations. Clear to auscultation. GASTROINTESTINAL: Abdomen soft, non-tender, nondistended. No hepato-splenomegaly , or palpable masses. MUSCULOSKELETAL: Extremities without clubbing, cyanosis, or edema. VAC in place R foot with serosang dc toes feel warm NEUROLOGICAL: Awake and alert. Non focal PSYCHIATRIC: No obvious anxiety/depression. no apparent hallucinations or other psychotic thought process. Assessment & Plan Remarks R foot DFI, no osteo sp I+D op report reviewed: deep abscess in plantar arch area. Necrotic fatty tissue noted and foul odor present. Milky purulent drainage noted. Abscess was down to level of plantar fascia. Ischemic necrosis of R foot soft tissue with superinfection with B. frag - previous clx with GBS 2/2 and enterocci on surface clx only - high amputation risk PCN allergy in the form of rash in infancy - per pt Persistent fever - source is likley foot infx - cont lokesh duffyeptyrel, Lennie Carter Dr, MD Dec 30, 2016 17:25
[2016-12-31] VITALS (8 sets, daily range): BP systolic 116–188; BP diastolic 57–86; PULSE 74–89; RESP 17–18; TEMP 97.9–98.9; O2SAT 94–97
[2016-12-31] MEDS: INSULIN ASPART SUPPLEMENTAL SCALE SQ SCH ×4 (06:46→21:00)
[2016-12-31] MEDS: HEPARIN SODIUM - SQ 10,000 UNITS/ML VIAL SQ SCH ×2 (08:42→20:24)
[2016-12-31] MEDS: SODIUM CHLORIDE 0.9% FLUSH 10 ML FLUSH IV FLUSH SCH ×2 (08:42→20:24)
[2016-12-31] MEDS: metroNIDAZOLE 500 MG INJ 100 ML IV SCH ×2 (08:42→15:43)
[2016-12-31] MEDS: DOCUSATE SODIUM 50 MG/SENNA 8.6 MG TAB PO SCH ×2 (08:42→20:24)
[2016-12-31] MEDS: CEFEPIME INJ 2,000 MG in SODIUM CHLORIDE 0.9% INJ 100 ML IV SCH ×2 (08:42→20:24)
[2016-12-31] MEDS: VANCOMYCIN 1,000 MG/NS 250 ML IV SCH ×2 (11:59)
--- NOTE | 2016-12-31 14:37 | HHI.PR ---
Subjective Remarks currently getting wound vac changed and has pain but otherwise hasn't requested pain meds. no nausea or vomiting, no CP/SOB pt states he has a hx of borderline HTN but not on meds RN at bedside doing wound vac change and states that his BPs have been high but now down to 150's Objective Vitals Vital Signs Date Time Temp Pulse Resp B/P Pulse Ox O2 Delivery O2 Flow Rate FiO2 12/31/16 12:00 97.9 79 18 154/69 94 12/31/16 10:34 85 116/61 12/31/16 08:56 188/81 180/80 12/31/16 08:00 97.9 81 17 184/86 95 12/31/16 04:00 98.3 74 18 120/65 97 12/31/16 00:00 98.9 82 17 123/57 96 12/30/16 20:00 98.7 86 18 129/66 97 12/30/16 16:00 97.8 82 18 166/75 93 162/80 I/O 12/30/16 12/30/16 12/30/16 12/31/16 12/31/16 12/31/16 07:00 15:00 23:00 07:00 15:00 23:00 Intake Total 865 ml 1110 ml 1085 ml 1125 ml 1208 ml Output Total 1100 ml 1010 ml 1000 ml 1600 ml 890 ml Balance -235 ml 100 ml 85 ml -475 ml 318 ml Intake Oral 240 ml 240 ml 360 ml 360 ml 240 ml IV Total 625 ml 870 ml 725 ml 765 ml 968 ml Output Urine Total 1100 ml 1000 ml 1000 ml 1600 ml 875 ml Drainage Total 0 ml 10 ml 0 ml 15 ml # Bowel Movements 0 0 1 Result Diagram: 12/28/16 0406 12/30/16 0419 Imaging Last Impressions Aorta w/Runoff CTA 12/28/16 0000 Signed Impressions: Service Date/Time: Wednesday, December 28, 2016 17:56 - CONCLUSION: 1. Patent inflow. 2. Right lower extremity with 50%% stenosis of the [id number] popliteal artery and severe trifurcation disease without straight line flow to the foot. 3. Left lower extremity with patent outflow and severe trifurcation disease. No straight line flow to the foot. 4. Soft tissue wound involving the medial right foot. 5. Tiny bilateral pleural effusions with associated atelectasis. Marshal Mendez Jr., MD Orbit X-Ray 12/24/16 0000 Signed Impressions: Service Date/Time: Saturday, December 24, 2016 10:09 - CONCLUSION: Unremarkable exam. Rikki Boyd MD Foot MRI 12/24/16 0000 Signed Impressions: Service Date/Time: Saturday, December 24, 2016 10:27 - CONCLUSION: 1. No evidence of osteomyelitis. 2. Nonspecific soft tissue inflammatory changes involving the soft tissues along the plantar surface of the foot at the level between the first and second metatarsals. This is most likely cellulitis. Rikki Boyd MD Chest X-Ray 12/23/16 0129 Signed Impressions: Service Date/Time: Friday, December 23, 2016 01:56 - CONCLUSION: No acute disease. Juan Garza MD Foot X-Ray 12/23/16 0000 Signed Impressions: Service Date/Time: Friday, December 23, 2016 03:46 - CONCLUSION: No definite acute bony findings Juan Garza MD Objective Remarks GENERAL: This is a well-nourished, well-developed patient, in no apparent distress. CARDIOVASCULAR: Normal rate and regular rhythm without murmurs RESPIRATORY: Good respiratory efforts. Breath sounds equal and clear to auscultation bilaterally. GASTROINTESTINAL: Abdomen soft, non-tender, non-distended. Normal active bowel sounds MUSCULOSKELETAL: R foot currently getting wound VAC changed, large exposed area NEURO: Alert & Oriented x4 to person, place, time, situation. Moves all ext x4 PSYCH: Appropriate mood and affect. A/P Problem List: (1) Sepsis ICD Code: A41.9 Status: Acute (2) Cellulitis ICD Code: L03.90 Status: Acute (3) CESAR (acute kidney injury) ICD Code: N17.9 Status: Acute (4) DM (diabetes mellitus) ICD Code: E11.9 Status: Acute Assessment and Plan Sepsis secondary to right foot infection for an abscess: Sepsis resolved Superficial wound cultures growing group D enterococcus and group B strep - Patient is status post I&D of right foot plantar abscess. Per podiatry, Necrotic fatty tissue noted and foul odor present. Milky purulent drainage noted. Abscess was down to level of plantar fascia and possible vascular compromise. - MRI does not reveal any osteomyelitis. Vascular surgery consulted, per vascular surgery, no vascular intervention needed, CTA runoff showed patency of major vessels. Status post wound VAC change today. - Infectious disease following, continue vancomycin, cefepime and Flagyl CESAR: Secondary to sepsis and dehydration. Resolved with IV fluid - Avoid nephrotoxins. DM: Recent diagnosis of DM on previous admit, Hgb A1c 8.0 on 10/10/16. Continue to hold metformin. Sliding scale w/ Accu-Cheks. DVT Prophylaxis: Heparin sq Discharge Planning continue wound vac changes per podiatry, continue IV abx Problem Qualifiers (1) Cellulitis: Qualified Code: L03.115 - Cellulitis of right lower extremity Bibi John MD Dec 31, 2016 14:37
[2016-12-31] MEDS: amLODIPine BESYLATE 5 MG TAB PO SCH (15:41)
[2016-12-31] MEDS: VANCOMYCIN INJ 1,250 MG in SODIUM CHLOR 0.9% 250 ML INJ 250 ML IV SCH (17:33)
[2017-01-01] VITALS: BP 139/72; PULSE 88; RESP 17; TEMP 98.4; O2SAT 93
[2017-01-01] MEDS: metroNIDAZOLE 500 MG INJ 100 ML IV SCH ×3 (01:18→16:32)
[2017-01-01 05:01] VITALS: BP 157/74; PULSE 83; RESP 18; TEMP 98.1; O2SAT 97
[2017-01-01] MEDS: VANCOMYCIN INJ 1,250 MG in SODIUM CHLOR 0.9% 250 ML INJ 250 ML IV SCH ×2 (05:50→17:33)
[2017-01-01] MEDS: INSULIN ASPART SUPPLEMENTAL SCALE SQ SCH ×4 (06:44→22:34)
[2017-01-01 08:00] VITALS: BP 152/82; PULSE 82; RESP 16; TEMP 98.4; O2SAT 94
[2017-01-01] MEDS: SODIUM CHLORIDE 0.9% FLUSH 10 ML FLUSH IV FLUSH SCH ×2 (09:00→21:30)
[2017-01-01] MEDS: CEFEPIME INJ 2,000 MG in SODIUM CHLORIDE 0.9% INJ 100 ML IV SCH ×2 (09:15→21:30)
[2017-01-01] MEDS: amLODIPine BESYLATE 5 MG TAB PO SCH (09:16)
[2017-01-01] MEDS: HEPARIN SODIUM - SQ 10,000 UNITS/ML VIAL SQ SCH ×2 (09:16→21:31)
[2017-01-01] MEDS: DOCUSATE SODIUM 50 MG/SENNA 8.6 MG TAB PO SCH ×2 (09:16→21:30)
[2017-01-01 12:00] VITALS: BP 106/66; PULSE 86; RESP 18; TEMP 97.2; O2SAT 98
--- NOTE | 2017-01-01 14:30 | HHI.PR ---
Subjective Remarks Pt currently eating his lunch, denies any pain, CP/SOB/N/V Objective Vitals Vital Signs Date Time Temp Pulse Resp B/P Pulse Ox O2 Delivery O2 Flow Rate FiO2 01/01/17 12:00 97.2 86 18 106/66 98 01/01/17 08:00 98.4 82 16 152/82 94 01/01/17 05:01 98.1 83 18 157/74 97 01/01/17 00:00 98.4 88 17 139/72 93 12/31/16 20:00 98.4 89 17 159/74 95 12/31/16 16:00 98.0 80 18 182/80 95 I/O 12/31/16 12/31/16 12/31/16 01/01/17 01/01/17 01/01/17 06:59 14:59 22:59 06:59 14:59 22:59 Intake Total 1125 ml 1208 ml 380 ml 2019 ml 765 ml Output Total 1600 ml 890 ml 700 ml 1300 ml 775 ml Balance -475 ml 318 ml -320 ml 719 ml -10 ml Intake Oral 360 ml 240 ml 380 ml 380 ml IV Total 765 ml 968 ml 1639 ml 765 ml Output Urine Total 1600 ml 875 ml 700 ml 1300 ml 775 ml Drainage Total 15 ml 0 ml # Bowel Movements 1 0 1 Result Diagram: 12/28/16 0406 01/01/17 0520 Imaging Last Impressions Aorta w/Runoff CTA 12/28/16 0000 Signed Impressions: Service Date/Time: Wednesday, December 28, 2016 17:56 - CONCLUSION: 1. Patent inflow. 2. Right lower extremity with 50%% stenosis of the cicvk-rrk-tcgm popliteal artery and severe trifurcation disease without straight line flow to the foot. 3. Left lower extremity with patent outflow and severe trifurcation disease. No straight line flow to the foot. 4. Soft tissue wound involving the medial right foot. 5. Tiny bilateral pleural effusions with associated atelectasis. Marshal Mendez Jr., MD Orbit X-Ray 12/24/16 0000 Signed Impressions: Service Date/Time: Saturday, December 24, 2016 10:09 - CONCLUSION: Unremarkable exam. Rikki Boyd MD Foot MRI 12/24/16 0000 Signed Impressions: Service Date/Time: Saturday, December 24, 2016 10:27 - CONCLUSION: 1. No evidence of osteomyelitis. 2. Nonspecific soft tissue inflammatory changes involving the soft tissues along the plantar surface of the foot at the level between the first and second metatarsals. This is most likely cellulitis. Rikki Boyd MD Chest X-Ray 12/23/16 0129 Signed Impressions: Service Date/Time: Friday, December 23, 2016 01:56 - CONCLUSION: No acute disease. Juan Garza MD Foot X-Ray 12/23/16 0000 Signed Impressions: Service Date/Time: Friday, December 23, 2016 03:46 - CONCLUSION: No definite acute bony findings Juan Garza MD Objective Remarks GENERAL: This is a well-nourished, well-developed patient, in no apparent distress. CARDIOVASCULAR: Normal rate and regular rhythm without murmurs RESPIRATORY: Good respiratory efforts. Breath sounds equal and clear to auscultation bilaterally. GASTROINTESTINAL: Abdomen soft, non-tender, non-distended. Normal active bowel sounds MUSCULOSKELETAL: R foot w wound VAC changed NEURO: Alert & Oriented x4 to person, place, time, situation. Moves all ext x4 PSYCH: Appropriate mood and affect. A/P Problem List: (1) Sepsis ICD Code: A41.9 Status: Acute (2) Cellulitis ICD Code: L03.90 Status: Acute (3) CESAR (acute kidney injury) ICD Code: N17.9 Status: Acute (4) DM (diabetes mellitus) ICD Code: E11.9 Status: Acute Assessment and Plan Sepsis secondary to right foot infection for an abscess: Sepsis resolved Superficial wound cultures growing group D enterococcus and group B strep, wound cx on 12/27 growing bacteroids sp B - Patient is status post I&D of right foot plantar abscess. Per podiatry, Necrotic fatty tissue noted and foul odor present. Milky purulent drainage noted. Abscess was down to level of plantar fascia and possible vascular compromise. - MRI does not reveal any osteomyelitis. Vascular surgery consulted, per vascular surgery, no vascular intervention needed, CTA runoff showed patency of major vessels. wound vac changes T, Th and Sat - Infectious disease following, continue vancomycin, cefepime and Flagyl CESAR: Secondary to sepsis and dehydration. Resolved with IV fluid - Avoid nephrotoxins. DM: Recent diagnosis of DM on previous admit, Hgb A1c 8.0 on 10/10/16. Continue to hold metformin. Sliding scale w/ Accu-Cheks. DVT Prophylaxis: Heparin sq Discharge Planning continue wound vac changes per podiatry, continue IV abx Problem Qualifiers (1) Cellulitis: Qualified Code: L03.115 - Cellulitis of right lower extremity Bibi John MD Jan 01, 2017 14:29
[2017-01-01 16:00] VITALS: BP 131/71; PULSE 85; RESP 20; TEMP 98; O2SAT 95
[2017-01-01 20:00] VITALS: BP 160/74; PULSE 81; RESP 18; TEMP 97.6; O2SAT 94
[2017-01-02] VITALS: BP 107/56; PULSE 80; RESP 20; TEMP 98.7; O2SAT 96
[2017-01-02] MEDS: metroNIDAZOLE 500 MG INJ 100 ML IV SCH ×3 (00:46→17:17)
[2017-01-02 04:00] VITALS: BP 153/79; PULSE 73; RESP 20; TEMP 98.8; O2SAT 96
[2017-01-02] MEDS ORDERED: PHARMACY ORDERED LAB ONE (05:45)
[2017-01-02] MEDS: VANCOMYCIN INJ 1,250 MG in SODIUM CHLOR 0.9% 250 ML INJ 250 ML IV SCH (06:16)
[2017-01-02] MEDS: INSULIN ASPART SUPPLEMENTAL SCALE SQ SCH ×4 (06:16→22:59)
[2017-01-02 08:00] VITALS: BP 138/68; PULSE 76; RESP 16; TEMP 98; O2SAT 94
[2017-01-02] MEDS: CEFEPIME INJ 2,000 MG in SODIUM CHLORIDE 0.9% INJ 100 ML IV SCH (08:36)
[2017-01-02] MEDS: SODIUM CHLORIDE 0.9% FLUSH 10 ML FLUSH IV FLUSH SCH ×2 (08:37→20:45)
[2017-01-02] MEDS: DOCUSATE SODIUM 50 MG/SENNA 8.6 MG TAB PO SCH ×2 (08:39→20:44)
[2017-01-02] MEDS: amLODIPine BESYLATE 5 MG TAB PO SCH (08:39)
[2017-01-02] MEDS: HEPARIN SODIUM - SQ 10,000 UNITS/ML VIAL SQ SCH ×2 (08:40→20:44)
[2017-01-02 12:00] VITALS: BP 153/73; PULSE 82; RESP 18; TEMP 97.2; O2SAT 97
[2017-01-02 16:00] VITALS: BP 126/62; PULSE 82; RESP 16; TEMP 98.2; O2SAT 93
[2017-01-02] MEDS: VANCOMYCIN 1,000 MG/NS 250 ML IV SCH ×2 (17:18)
--- NOTE | 2017-01-02 18:03 | HHI.PR ---
Subjective Remarks pt seem earlier around 4:30pm no complaints today, no cp/sob/n/v wound vac not yet changed Objective Vitals Vital Signs Date Time Temp Pulse Resp B/P Pulse Ox O2 Delivery O2 Flow Rate FiO2 01/02/17 16:00 98.2 82 16 126/62 93 01/02/17 12:00 97.2 82 18 153/73 97 01/02/17 08:00 98.0 76 16 138/68 94 01/02/17 04:00 98.8 73 20 153/79 96 01/02/17 00:00 98.7 80 20 107/56 96 01/01/17 20:00 97.6 81 18 160/74 94 I/O 01/01/17 01/01/17 01/01/17 01/02/17 01/02/17 01/02/17 07:00 15:00 23:00 07:00 15:00 23:00 Intake Total 2019 ml 1565 ml 580 ml 120 ml 1047 ml Output Total 1300 ml 775 ml 0 ml 800 ml 800 ml Balance 719 ml 790 ml 580 ml -680 ml 247 ml Intake Oral 380 ml 800 ml 480 ml 120 ml 600 ml IV Total 1639 ml 765 ml 100 ml 447 ml Output Urine Total 1300 ml 775 ml 800 ml 800 ml Drainage Total 0 ml 0 ml # Voids 1 # Bowel Movements 0 1 1 0 0 Result Diagram: 01/01/17 0520 Imaging Last Impressions Aorta w/Runoff CTA 12/28/16 0000 Signed Impressions: Service Date/Time: Wednesday, December 28, 2016 17:56 - CONCLUSION: 1. Patent inflow. 2. Right lower extremity with 50%% stenosis of the jtgmr-cxn-zlfc popliteal artery and severe trifurcation disease without straight line flow to the foot. 3. Left lower extremity with patent outflow and severe trifurcation disease. No straight line flow to the foot. 4. Soft tissue wound involving the medial right foot. 5. Tiny bilateral pleural effusions with associated atelectasis. Marshal Mendez Jr., MD [facility] X-Ray 12/24/16 0000 Signed Impressions: Service Date/Time: Saturday, December 24, 2016 10:09 - CONCLUSION: Unremarkable exam. Rikki Boyd MD Foot MRI 12/24/16 0000 Signed Impressions: Service Date/Time: Saturday, December 24, 2016 10:27 - CONCLUSION: 1. No evidence of osteomyelitis. 2. Nonspecific soft tissue inflammatory changes involving the soft tissues along the plantar surface of the foot at the level between the first and second metatarsals. This is most likely cellulitis. Rikki Boyd MD Chest X-Ray 12/23/16 0129 Signed Impressions: Service Date/Time: Friday, December 23, 2016 01:56 - CONCLUSION: No acute disease. Juan Garza MD Foot X-Ray 12/23/16 0000 Signed Impressions: Service Date/Time: Friday, December 23, 2016 03:46 - CONCLUSION: No definite acute bony findings Juan Garza MD Objective Remarks GENERAL: Pt appears comfortable CARDIOVASCULAR: Normal rate and regular rhythm without murmurs RESPIRATORY: Good respiratory efforts. Breath sounds equal and clear to auscultation bilaterally. GASTROINTESTINAL: Abdomen soft, non-tender MUSCULOSKELETAL: R foot w wound VAC changed NEURO: Alert & Oriented . Moves all ext x4 A/P Problem List: (1) Sepsis ICD Code: A41.9 Status: Acute (2) Cellulitis ICD Code: L03.90 Status: Acute (3) CESAR (acute kidney injury) ICD Code: N17.9 Status: Acute (4) DM (diabetes mellitus) ICD Code: E11.9 Status: Acute Assessment and Plan Sepsis secondary to right foot infection for an abscess: Sepsis resolved Superficial wound cultures growing group D enterococcus and group B strep, wound cx on 12/27 growing bacteroids sp B - Patient is status post I&D of right foot plantar abscess. Per podiatry, Necrotic fatty tissue noted and foul odor present. Milky purulent drainage noted. Abscess was down to level of plantar fascia and possible vascular compromise. - MRI does not reveal any osteomyelitis. Vascular surgery consulted, per vascular surgery, no vascular intervention needed, CTA runoff showed patency of major vessels. wound vac changes T, Th and Sat. Discussed the case w Dr. Martinez she will evaluate wound today and make further recs - Infectious disease following, continue vancomycin, cefepime and Flagyl CESAR: Secondary to sepsis and dehydration. Resolved with IV fluid - Avoid nephrotoxins. DM: Recent diagnosis of DM on previous admit, Hgb A1c 8.0 on 10/10/16. Continue to hold metformin. Sliding scale w/ Accu-Cheks. DVT Prophylaxis: Heparin sq Discharge Planning continue wound vac changes per podiatry, continue IV abx awaiting recs from podiatry and vascular sx. Problem Qualifiers (1) Cellulitis: Qualified Code: L03.115 - Cellulitis of right lower extremity Bibi John MD Jan 02, 2017 18:03
--- NOTE | 2017-01-02 19:00 | HHI.IDPN ---
Subjective Subjective Remarks shane John no fever no new complaints Antibiotics cefepime flagyl vanco Allergies: Coded Allergies: Penicillin (Verified Allergy, Unknown, 12/23/16) Objective . Vital Signs Date Time Temp Pulse Resp B/P Pulse Ox O2 Delivery O2 Flow Rate FiO2 01/02/17 16:00 98.2 82 16 126/62 93 01/02/17 12:00 97.2 82 18 153/73 97 01/02/17 08:00 98.0 76 16 138/68 94 01/02/17 04:00 98.8 73 20 153/79 96 01/02/17 00:00 98.7 80 20 107/56 96 01/01/17 20:00 97.6 81 18 160/74 94 01/01/17 01/01/17 01/02/17 15:00 23:00 07:00 Intake Total 1565 ml 580 ml 120 ml Output Total 775 ml 0 ml 800 ml Balance 790 ml 580 ml -680 ml Intake Oral 800 ml 480 ml 120 ml IV Total 765 ml 100 ml Output Urine Total 775 ml 800 ml Drainage Total 0 ml 0 ml # Voids 1 # Bowel Movements 1 1 0 . Laboratory Tests Test 01/01/17 05:20 Creatinine 0.76 MG/DL Estimat Glomerular Filtration 105 ML/MIN Rate Imaging Last Impressions Aorta w/Runoff CTA 12/28/16 0000 Signed Impressions: Service Date/Time: Wednesday, December 28, 2016 17:56 - CONCLUSION: 1. Patent inflow. 2. Right lower extremity with 50%% stenosis of the aketi-fau-kfpt popliteal artery and severe trifurcation disease without straight line flow to the foot. 3. Left lower extremity with patent outflow and severe trifurcation disease. No straight line flow to the foot. 4. Soft tissue wound involving the medial right foot. 5. Tiny bilateral pleural effusions with associated atelectasis. Marshal Mendez Jr., MD Or[facility] X-Ray 12/24/16 0000 Signed Impressions: Service Date/Time: Saturday, December 24, 2016 10:09 - CONCLUSION: Unremarkable exam. Rikki Boyd MD Foot MRI 12/24/16 0000 Signed Impressions: Service Date/Time: Saturday, December 24, 2016 10:27 - CONCLUSION: 1. No evidence of osteomyelitis. 2. Nonspecific soft tissue inflammatory changes involving the soft tissues along the plantar surface of the foot at the level between the first and second metatarsals. This is most likely cellulitis. Rikki Boyd MD Chest X-Ray 12/23/16 0129 Signed Impressions: Service Date/Time: Friday, December 23, 2016 01:56 - CONCLUSION: No acute disease. Juan Garza MD Foot X-Ray 12/23/16 0000 Signed Impressions: Service Date/Time: Friday, December 23, 2016 03:46 - CONCLUSION: No definite acute bony findings Juan Garza MD Physical Exam CONSTITUTIONAL/GENERAL: This is an adequately nourished patient, in no apparent distress. TUBES/LINES/DRAINS: SKIN: No jaundice, rashes, or lesions. RESPIRATORY/CHEST: Symmetric, unlabored respirations. MUSCULOSKELETAL: VAC in place R foot with serosang dc toes feel warm NEUROLOGICAL: Awake and alert. Non focal PSYCHIATRIC: No obvious anxiety/depression. no apparent hallucinations or other psychotic thought process. Assessment & Plan Remarks R foot DFI, no osteo sp I+D op report reviewed: deep abscess in plantar arch area. Necrotic fatty tissue noted and foul odor present. Milky purulent drainage noted. Abscess was down to level of plantar fascia. Ischemic necrosis of R foot soft tissue with superinfection with B. frag - previous clx with GBS 2/2 and enterocci on surface clx only - high amputation risk PCN allergy in the form of rash in infancy - per pt Persistent fever - source is likley foot infx - cont vanco, , flagyl - change cefepime to CFTX dw Lennie Griggs MD Jan 02, 2017 19:00
[2017-01-02 20:00] VITALS: BP 147/74; PULSE 80; RESP 20; TEMP 97.9; O2SAT 97
[2017-01-02] MEDS: cefTRIAXone INJ 2,000 MG in SODIUM CHLORIDE 0.9% INJ 100 ML IV SCH (20:44)
[2017-01-03] VITALS: BP 127/60; PULSE 82; RESP 18; TEMP 98.7; O2SAT 98
[2017-01-03] MEDS: metroNIDAZOLE 500 MG INJ 100 ML IV SCH ×4 (01:08→23:33)
[2017-01-03] MEDS: VANCOMYCIN 1,000 MG/NS 250 ML IV SCH ×4 (06:10→18:13)
[2017-01-03] MEDS: INSULIN ASPART SUPPLEMENTAL SCALE SQ SCH ×4 (06:11→20:26)
--- NOTE | 2017-01-03 07:34 | HHI.PR ---
Subjective Remarks Patient is s/p right foot I&D with on 12/29/16. He has been seen by , who felt that the patient had adequate blood flow, but was concerned about the large amount of soft tissue loss and wanted to monitor his progress over the next week. Patient states he only has pain during VAC changes. He denies any n/v/f/h/c/sob. Objective Vital Signs Date Time Temp Pulse Resp B/P Pulse Ox O2 Delivery O2 Flow Rate FiO2 01/03/17 00:00 98.7 82 18 127/60 98 01/02/17 20:00 97.9 80 20 147/74 97 01/02/17 16:00 98.2 82 16 126/62 93 01/02/17 12:00 97.2 82 18 153/73 97 01/02/17 08:00 98.0 76 16 138/68 94 I/O 01/02/17 01/02/17 01/02/17 01/03/17 01/03/17 01/03/17 07:00 15:00 23:00 07:00 15:00 23:00 Intake Total 120 ml 1047 ml 360 ml 120 ml Output Total 800 ml 815 ml 450 ml 1050 ml Balance -680 ml 232 ml -90 ml -930 ml Intake Oral 120 ml 600 ml 360 ml 120 ml IV Total 447 ml Output Urine Total 800 ml 800 ml 450 ml 1050 ml Drainage Total 15 ml # Bowel Movements 0 0 0 0 Result Diagram: 01/01/17 0520 Assessment and Plan Assessment and Plan 1) right foot with 2 large full thickness ulcerations, no cellulitis 2) s/p right foot I&D with on 12/29/16 - After examining the patients foot I spoke to him in detail about options. He has exposed tendons dorsally and exposed bone plantarly. The sesamoids and first metatarsal head are exposed and necrotic. I explained to the patient that we could try a TMA and an Integra graft to the dorsal wound. However, he would still require extensive wound care and there is no gaurantee that he would be able to ever heal these wounds. The other option is a BKA. This would allow a higher opportunity for healing with less complications, but is obviously a large stress both physically and mentally. The patient would like to take a day or two to think about his options. -Cont wound VAC, with changes M/W/F -NWBing RLE -Cont iv x Komal Martinez DPM Jan 03, 2017 07:34
[2017-01-03] MEDS: HEPARIN SODIUM - SQ 10,000 UNITS/ML VIAL SQ SCH ×2 (07:51→20:26)
[2017-01-03] MEDS: amLODIPine BESYLATE 5 MG TAB PO SCH (07:51)
[2017-01-03] MEDS: DOCUSATE SODIUM 50 MG/SENNA 8.6 MG TAB PO SCH ×2 (07:51→20:27)
[2017-01-03] MEDS: SODIUM CHLORIDE 0.9% FLUSH 10 ML FLUSH IV FLUSH SCH ×2 (07:54→20:27)
[2017-01-03 08:00] VITALS: BP 151/72; PULSE 81; RESP 16; TEMP 98.1; O2SAT 93
[2017-01-03 12:00] VITALS: BP 99/69; PULSE 81; RESP 18; TEMP 97.4; O2SAT 96
[2017-01-03 16:00] VITALS: BP 146/65; PULSE 82; RESP 18; TEMP 97.2; O2SAT 97
--- NOTE | 2017-01-03 16:56 | PD.CAR.PN ---
CVT Progress Note Subjective/Hospital Course: 56-year-old patient with diabetes and severe infection of the right foot with a plantar abscess On physical exam patient has good femoral and popliteal pulses but I'm sure he has small vessel disease below the level of the knee although on the left side he has strong dissolves pedis posterior tibial on Doppler On the right side patient has dressing so vessels cannot be palpated or auscultated however he has good capillary refill I will order CTA with runoff to get a baseline study but I doubt that patient will require any vascular reconstruction in order to improve this healing Patient will need a wound VAC and he'll take a while for all this to heal up Full consult to follow Thanks J 12/29/16 CT scan reviewed Patient has diffuse calcific changes throughout his vascular system but no hemodynamically significant inflow stenosis. There is about 50% stenosis of the distal superficial femoral/popliteal artery but I do not see this is a hemodynamically significant event at this time. Patient does have severe distal disease with no straight shot to the foot with bits and pieces of anterior and posterior tibial arteries and multilevel occlusions of both on both sides I've seen today in the operating room the right foot and after debridement there is not much left of the plantar surface of the foot. Patient will have a wound VAC placed and we'll see how he does in next few days but there is a very high chance the patient will end up with below-knee amputation I'll discuss this with the patient at length 12/30/16 I discussed the situation with the patient today He has severe peripheral vascular disease as above noted. There is nothing at this point to reconstruct her open up Dear bits and pieces of the anterior tibial posterior tibial arteries bilateral will multilevel occlusions and dissipation of the vessels as the ankle approaches. Patient is now missing half of his right foot essentially and tarsals and metatarsals are exposed. The chance of this healing is very very minimal and I've explained to the patient a most likely will require below-knee amputation and there is about 30% chance that he'll require an above-knee amputation within the year. Patient has stents that will allow it for about a week of wound VAC and reevaluate this just to dispense with any doubt as far as the further procedure planning 01/03/17 Is previously stated patient had a massive debridement of the right foot which left him with essentially exposed tarsal and metatarsal bones and flexor tendons. This is a huge defect and there is no way to fix this without higher level amputation Nonetheless this looks no clean and this will be doable in one procedure rather than two Patient is scheduled for right below-knee amputation tomorrow Objective: Vital Signs Date Time Temp Pulse Resp B/P Pulse Ox O2 Delivery O2 Flow Rate FiO2 01/03/17 16:00 97.2 82 18 146/65 97 01/03/17 12:00 97.4 81 18 99/69 96 01/03/17 08:00 98.1 81 16 151/72 93 01/03/17 00:00 98.7 82 18 127/60 98 01/02/17 20:00 97.9 80 20 147/74 97 Labs: Laboratory Tests Test 01/03/17 05:50 Creatinine 0.71 MG/DL (0.60-1.30) Estimat Glomerular Filtration 114 ML/MIN Rate (>89) Result Diagram: 01/03/17 0550 Facundo Mercado MD Jan 03, 2017 16:56
[2017-01-03] MEDS ORDERED: PHARMACY ORDERED LAB ONE (17:45)
--- NOTE | 2017-01-03 18:11 | HHI.PR ---
Subjective Remarks Patient has no complaints. Denies any pain at this time. Denies any chest pain , shortness of breath, nausea or vomiting. Objective Vitals Vital Signs Date Time Temp Pulse Resp B/P Pulse Ox O2 Delivery O2 Flow Rate FiO2 01/03/17 16:00 97.2 82 18 146/65 97 01/03/17 12:00 97.4 81 18 99/69 96 01/03/17 08:00 98.1 81 16 151/72 93 01/03/17 00:00 98.7 82 18 127/60 98 01/02/17 20:00 97.9 80 20 147/74 97 I/O 01/02/17 01/02/17 01/02/17 01/03/17 01/03/17 01/03/17 07:00 15:00 23:00 07:00 15:00 23:00 Intake Total 120 ml 1047 ml 360 ml 120 ml 700 ml Output Total 800 ml 815 ml 450 ml 1050 ml 450 ml Balance -680 ml 232 ml -90 ml -930 ml 250 ml Intake Oral 120 ml 600 ml 360 ml 120 ml 600 ml IV Total 447 ml 100 ml Output Urine Total 800 ml 800 ml 450 ml 1050 ml 450 ml Drainage Total 15 ml # Bowel Movements 0 0 0 0 0 Result Diagram: 01/03/17 0550 Imaging Last Impressions Aorta w/Runoff CTA 12/28/16 0000 Signed Impressions: Service Date/Time: Wednesday, December 28, 2016 17:56 - CONCLUSION: 1. Patent inflow. 2. Right lower extremity with 50%% stenosis of the biuag-zbp-evnj popliteal artery and severe trifurcation disease without straight line flow to the foot. 3. Left lower extremity with patent outflow and severe trifurcation disease. No straight line flow to the foot. 4. Soft tissue wound involving the medial right foot. 5. Tiny bilateral pleural effusions with associated atelectasis. Marshal Mendez Jr., MD Or[facility] X-Ray 12/24/16 0000 Signed Impressions: Service Date/Time: Saturday, December 24, 2016 10:09 - CONCLUSION: Unremarkable exam. Rikki Boyd MD Foot MRI 12/24/16 0000 Signed Impressions: Service Date/Time: Saturday, December 24, 2016 10:27 - CONCLUSION: 1. No evidence of osteomyelitis. 2. Nonspecific soft tissue inflammatory changes involving the soft tissues along the plantar surface of the foot at the level between the first and second metatarsals. This is most likely cellulitis. Rikki Boyd MD Chest X-Ray 12/23/16 0129 Signed Impressions: Service Date/Time: Friday, December 23, 2016 01:56 - CONCLUSION: No acute disease. Juan Garza MD Foot X-Ray 12/23/16 0000 Signed Impressions: Service Date/Time: Friday, December 23, 2016 03:46 - CONCLUSION: No definite acute bony findings Juan Garza MD Objective Remarks GENERAL: Pt appears comfortable CARDIOVASCULAR: Normal rate and regular rhythm without murmurs RESPIRATORY: Good respiratory efforts. Breath sounds equal and clear to auscultation bilaterally. GASTROINTESTINAL: Abdomen soft, non-tender MUSCULOSKELETAL: R foot w wound VAC in place NEURO: Alert & Oriented . Moves all ext x4 A/P Problem List: (1) Sepsis ICD Code: A41.9 Status: Acute (2) Cellulitis ICD Code: L03.90 Status: Acute (3) CESAR (acute kidney injury) ICD Code: N17.9 Status: Acute (4) DM (diabetes mellitus) ICD Code: E11.9 Status: Acute Assessment and Plan Sepsis secondary to right foot infection for an abscess: Sepsis resolved Superficial wound cultures growing group D enterococcus and group B strep, wound cx on 12/27 growing bacteroids sp B - Patient is status post I&D of right foot plantar abscess. Per podiatry, Necrotic fatty tissue noted and foul odor present. Milky purulent drainage noted. Abscess was down to level of plantar fascia and possible vascular compromise. - MRI does not reveal any osteomyelitis. Vascular surgery and podiatry following. Recommend right below-knee amputation tomorrow. - Infectious disease following, continue vancomycin, cefepime and Flagyl CESAR: Secondary to sepsis and dehydration. Resolved with IV fluid - Avoid nephrotoxins. DM: Recent diagnosis of DM on previous admit, Hgb A1c 8.0 on 10/10/16. Continue to hold metformin. Sliding scale w/ Accu-Cheks. DVT Prophylaxis: Heparin sq Discharge Planning Patient is scheduled for right below-knee amputation tomorrow Problem Qualifiers (1) Cellulitis: Qualified Code: L03.115 - Cellulitis of right lower extremity Bibi John MD Jan 03, 2017 18:11
[2017-01-03 20:00] VITALS: BP 146/72; PULSE 83; RESP 18; TEMP 97.9; O2SAT 95
[2017-01-03] MEDS: cefTRIAXone INJ 2,000 MG in SODIUM CHLORIDE 0.9% INJ 100 ML IV SCH (20:27)
[2017-01-04] VITALS (7 sets, daily range): BP systolic 113–158; BP diastolic 57–72; PULSE 74–105; RESP 18–20; TEMP 96.4–98.6; O2SAT 92–97
[2017-01-04] MEDS ORDERED: LACTATED RINGER'S 1000 ML IV PRN (05:30)
[2017-01-04 06:10] LABS: INTERNATIONAL NORMALIZED RATIO 1.1 RATIO; PROTHROMBIN TIME - PATIENT 11.8 SEC (9.8-11.6)
[2017-01-04] MEDS: INSULIN ASPART SUPPLEMENTAL SCALE SQ SCH ×4 (06:14→20:01)
[2017-01-04] MEDS: VANCOMYCIN 1,000 MG/NS 250 ML IV SCH ×4 (06:15→18:01)
[2017-01-04] MEDS: metroNIDAZOLE 500 MG INJ 100 ML IV SCH ×3 (08:11→23:45)
[2017-01-04] MEDS: SODIUM CHLORIDE 0.9% FLUSH 10 ML FLUSH IV FLUSH SCH ×2 (08:11→19:47)
[2017-01-04] MEDS: amLODIPine BESYLATE 5 MG TAB PO SCH (08:14)
[2017-01-04] MEDS: HEPARIN SODIUM - SQ 10,000 UNITS/ML VIAL SQ SCH ×2 (08:15→19:48)
[2017-01-04] MEDS: DOCUSATE SODIUM 50 MG/SENNA 8.6 MG TAB PO SCH ×2 (08:15→19:47)
[2017-01-04] MEDS ORDERED: ROPIVACAINE 0.5% PF INJ 30 ML VIAL NERV BLOCK ONE (10:34)
[2017-01-04] MEDS ORDERED: *morphine SULFATE 8 MG/ML PERIprocedure ONLY ONE ×2 (11:27→11:44)
[2017-01-04] MEDS ORDERED: DO NOT ADM ANY ANTICOAGULANT DRUGS PRN (11:30)
[2017-01-04] MEDS ORDERED: PROPOFOL 200 MG/20 ML AMP IV ONE (12:00)
[2017-01-04] MEDS ORDERED: ePHEDrine/NS 25 MG/5 ML SYR IV ONE (12:00)
[2017-01-04] MEDS ORDERED: ONDANSETRON HCL 4 MG/2 ML VIAL IV PUSH ONE (12:00)
[2017-01-04] MEDS: MORPHINE SULFATE 4 MG/ML INJ IV PRN ×2 (12:27→16:28)
[2017-01-04] MEDS: SODIUM CHLORIDE 0.9% FLUSH 10 ML FLUSH IV FLUSH PRN (12:28)
[2017-01-04] MEDS: ACETAMINOPHEN/HYDROcodone 325 MG/5 MG TAB PO PRN ×2 (14:58→23:45)
[2017-01-04] MEDS ORDERED: fentaNYL CITRATE 250 MCG/5 ML AMP ONE (17:26)
[2017-01-04] MEDS ORDERED: MIDAZOLAM HCL 2 MG/2 ML VIAL ONE (17:27)
[2017-01-04] MEDS ORDERED: PHARMACY ORDERED LAB ONE (17:45)
[2017-01-04 19:37] LABS: HEMATOCRIT 24.8 % (39.0-51.0); REVIEW FLAG FINAL
[2017-01-04] MEDS: cefTRIAXone INJ 2,000 MG in SODIUM CHLORIDE 0.9% INJ 100 ML IV SCH (19:47)
[2017-01-04] MEDS: MORPHINE SULFATE 4 MG/ML INJ IV PUSH PRN ×2 (19:48→22:24)
--- NOTE | 2017-01-04 21:44 | MP ---
cc: WHITNEY BAÑUELOS MD DATE OF SURGERY 01/04/17 PREOPERATIVE DIAGNOSIS Gangrene of the right foot, diabetes mellitus. POSTOPERATIVE DIAGNOSIS Gangrene of the right foot, diabetes mellitus. PROCEDURE Below-knee amputation. SURGEON Magdalena Bañuelos MD ANESTHESIA General. ESTIMATED BLOOD LOSS 100 mL. PROCEDURE IN DETAIL The patient prepped and draped usual fashion and incision made creating the posterior flap through the level of the skin. With the cautery, the incision was deepened to the tibia and fibula. Anterior tibial artery and veins are clamped, divided and ligated with 2-0 Vicryl stick ties. The muscles are cut distally and then the tibia and fibula freed up with the periosteal elevator. Both are transected with oscillating saw about 2 inches above the level of the skin incision and then tibia is rounded off. The posterior flap is created with amputation knife and specimen removed. Meticulous hemostasis obtained with 0 Vicryl trzqgk-nd-[id number] stick ties, cautery and several 2-0 Vicryl ties. The anterior tibial nerve is allowed to retract. The area gets copious amounts of saline and then incision closed in layers with 0 Vicryl deep fascia, superficial fascia, superficial fascia. Skin is closed with 2-0 Prolene interrupted stitches. The patient tolerated the procedure well. Whitney ARELLANO/ /11:12 AM /9:27 PM
[2017-01-05] VITALS (7 sets, daily range): BP systolic 99–145; BP diastolic 51–67; PULSE 57–104; RESP 16–18; TEMP 96.3–100.1; O2SAT 92–97
[2017-01-05] MEDS: VANCOMYCIN 1,000 MG/NS 250 ML IV SCH ×4 (04:52→19:02)
[2017-01-05] MEDS: MORPHINE SULFATE 4 MG/ML INJ IV PUSH PRN ×3 (04:52→22:00)
[2017-01-05] MEDS: INSULIN ASPART SUPPLEMENTAL SCALE SQ SCH ×4 (04:59→20:54)
[2017-01-05] MEDS: DOCUSATE SODIUM 50 MG/SENNA 8.6 MG TAB PO SCH ×2 (08:27→20:54)
[2017-01-05] MEDS: amLODIPine BESYLATE 5 MG TAB PO SCH (08:27)
[2017-01-05] MEDS: metroNIDAZOLE 500 MG INJ 100 ML IV SCH ×2 (08:27→17:30)
[2017-01-05] MEDS: HEPARIN SODIUM - SQ 10,000 UNITS/ML VIAL SQ SCH ×2 (08:28→20:54)
[2017-01-05] MEDS: ACETAMINOPHEN/HYDROcodone 325 MG/5 MG TAB PO PRN (08:28)
[2017-01-05] MEDS: SODIUM CHLORIDE 0.9% FLUSH 10 ML FLUSH IV FLUSH SCH ×2 (08:29→20:54)
--- NOTE | 2017-01-05 09:02 | HHI.PR ---
Subjective Remarks Late note entry from 01/04 Patient seen and examined, s/p BKA R no acute complain no chest pain or short of breath, hemoglobin is 7 on the third I will repeat Objective Vitals Vital Signs Date Time Temp Pulse Resp B/P Pulse Ox O2 Delivery O2 Flow Rate FiO2 01/05/17 08:40 96 Nasal Cannula 2.00 01/05/17 08:00 99.2 92 17 142/65 95 01/05/17 00:00 100.1 104 18 123/58 97 01/04/17 20:00 98.6 105 20 129/65 97 01/04/17 18:17 92 Nasal Cannula 2.00 01/04/17 16:00 96.9 96 18 128/63 92 01/04/17 15:58 18 01/04/17 12:32 16 01/04/17 12:00 98.4 88 16 164/75 100 Nasal Cannula 2 01/04/17 12:00 96.4 89 18 156/72 96 01/04/17 11:45 87 16 142/65 100 Nasal Cannula 2 01/04/17 11:30 88 16 161/77 100 Nasal Cannula 2 01/04/17 11:18 98.0 90 16 155/72 100 Nasal Cannula 2 I/O 01/04/17 01/04/17 01/04/17 01/05/17 01/05/17 01/05/17 07:00 15:00 23:00 07:00 15:00 23:00 Intake Total 0 ml 950 ml 320 ml 120 ml Output Total 300 ml 445 ml 250 ml 1200 ml Balance -300 ml 505 ml 70 ml -1080 ml Intake Oral 0 ml 100 ml 320 ml 120 ml IV Total 100 ml Other 750 ml Output Urine Total 300 ml 285 ml 250 ml 1200 ml Estimated Blood Loss 100 ml Other 60 ml # Bowel Movements 0 1 0 0 Result Diagram: 01/04/17 1841 01/05/17 0443 Objective Remarks GENERAL: 56 years old male resting in bed in no acute distress CARDIOVASCULAR: Normal rate and regular rhythm without murmurs RESPIRATORY: Fair air entry no wheezing GASTROINTESTINAL: Abdomen soft, non-tender MUSCULOSKELETAL: R foot w wound VAC in place NEURO: Alert & Oriented . Moves all ext x4 A/P Problem List: (1) Sepsis ICD Code: A41.9 Status: Acute (2) Cellulitis ICD Code: L03.90 Status: Acute (3) CESAR (acute kidney injury) ICD Code: N17.9 Status: Acute (4) DM (diabetes mellitus) ICD Code: E11.9 Status: Acute Assessment and Plan 01/04: s/p R BKA Stable, however hemoglobin was 7.6 on December 28 will repeat the level of hemoglobin A/P: Sepsis secondary to right foot infection for an abscess: Sepsis resolved Superficial wound cultures growing group D enterococcus and group B strep, wound cx on 12/27 growing bacteroids sp B - Patient is status post I&D of right foot plantar abscess. Per podiatry, Necrotic fatty tissue noted and foul odor present. Milky purulent drainage noted. Abscess was down to level of plantar fascia and possible vascular compromise. - MRI does not reveal any osteomyelitis. Vascular surgery and podiatry following. s/p right below-knee amputation - Infectious disease following, continue vancomycin, cefepime and Flagyl CESAR: Secondary to sepsis and dehydration. Resolved with IV fluid - Avoid nephrotoxins. DM: Recent diagnosis of DM on previous admit, Hgb A1c 8.0 on 10/10/16. Continue to hold metformin. Sliding scale w/ Accu-Cheks. DVT Prophylaxis: Heparin sq Problem Qualifiers (1) Cellulitis: Qualified Code: L03.115 - Cellulitis of right lower extremity Mehdi Chin MD Jan 05, 2017 09:01
--- NOTE | 2017-01-05 17:14 | HHI.PR ---
Subjective Remarks resting in bed, pain the amp site , no f/c Objective Vitals Vital Signs Date Time Temp Pulse Resp B/P Pulse Ox O2 Delivery O2 Flow Rate FiO2 01/05/17 16:00 99.7 95 18 145/67 93 01/05/17 12:00 97.5 90 17 118/58 92 01/05/17 12:00 97.5 90 17 118/58 92 01/05/17 09:28 18 01/05/17 08:40 96 Nasal Cannula 2.00 01/05/17 08:00 99.2 92 17 142/65 95 01/05/17 00:00 100.1 104 18 123/58 97 01/04/17 20:00 98.6 105 20 129/65 97 01/04/17 18:17 92 Nasal Cannula 2.00 I/O 01/04/17 01/04/17 01/04/17 01/05/17 01/05/17 01/05/17 07:00 15:00 23:00 07:00 15:00 23:00 Intake Total 0 ml 950 ml 320 ml 120 ml 480 ml Output Total 300 ml 445 ml 250 ml 1200 ml 400 ml Balance -300 ml 505 ml 70 ml -1080 ml 80 ml Intake Oral 0 ml 100 ml 320 ml 120 ml 480 ml IV Total 100 ml Other 750 ml Output Urine Total 300 ml 285 ml 250 ml 1200 ml 400 ml Estimated Blood Loss 100 ml Other 60 ml # Bowel Movements 0 1 0 0 0 Result Diagram: 01/04/17 1841 01/05/17 0443 Objective Remarks GENERAL: 56 years old male resting in bed in no acute distress CARDIOVASCULAR: Normal rate and regular rhythm without murmurs RESPIRATORY: Fair air entry no wheezing GASTROINTESTINAL: Abdomen soft, non-tender MUSCULOSKELETAL: R foot w wound VAC in place NEURO: Alert & Oriented . Moves all ext x4 A/P Problem List: (1) Sepsis ICD Code: A41.9 Status: Acute (2) Cellulitis ICD Code: L03.90 Status: Acute (3) CESAR (acute kidney injury) ICD Code: N17.9 Status: Acute (4) DM (diabetes mellitus) ICD Code: E11.9 Status: Acute Assessment and Plan 01/04: s/p R BKA Stable, however hemoglobin was 7.6 on December 28 will repeat the level of hemoglobin 01/05: Stable post right BKA, hemoglobin stable around 8, will follow with surgery recommendation A/P: Sepsis secondary to right foot infection for an abscess: Sepsis resolved Superficial wound cultures growing group D enterococcus and group B strep, wound cx on 12/27 growing bacteroids sp B - Patient is status post I&D of right foot plantar abscess. Per podiatry, Necrotic fatty tissue noted and foul odor present. Milky purulent drainage noted. Abscess was down to level of plantar fascia and possible vascular compromise. - MRI does not reveal any osteomyelitis. Vascular surgery and podiatry following. s/p right below-knee amputation - Infectious disease following, continue vancomycin, cefepime and Flagyl CESAR: Secondary to sepsis and dehydration. Resolved with IV fluid - Avoid nephrotoxins. DM: Recent diagnosis of DM on previous admit, Hgb A1c 8.0 on 10/10/16. Continue to hold metformin. Sliding scale w/ Accu-Cheks. DVT Prophylaxis: Heparin sq Problem Qualifiers (1) Cellulitis: Qualified Code: L03.115 - Cellulitis of right lower extremity Mehdi Chin MD Jan 05, 2017 17:14
[2017-01-05] MEDS: cefTRIAXone INJ 2,000 MG in SODIUM CHLORIDE 0.9% INJ 100 ML IV SCH (20:54)
[2017-01-06] VITALS (11 sets, daily range): BP systolic 113–142; BP diastolic 57–69; PULSE 88–95; RESP 17–20; TEMP 98.7–99.7; O2SAT 93–98
[2017-01-06] MEDS: metroNIDAZOLE 500 MG INJ 100 ML IV SCH ×2 (01:47→08:39)
[2017-01-06] MEDS: INSULIN ASPART SUPPLEMENTAL SCALE SQ SCH ×4 (05:36→22:30)
[2017-01-06] MEDS: VANCOMYCIN 1,000 MG/NS 250 ML IV SCH ×2 (05:36)
[2017-01-06] MEDS: amLODIPine BESYLATE 5 MG TAB PO SCH (08:39)
[2017-01-06] MEDS: DOCUSATE SODIUM 50 MG/SENNA 8.6 MG TAB PO SCH ×2 (08:39→21:15)
[2017-01-06] MEDS: HEPARIN SODIUM - SQ 10,000 UNITS/ML VIAL SQ SCH ×2 (08:39→21:15)
[2017-01-06] MEDS: SODIUM CHLORIDE 0.9% FLUSH 10 ML FLUSH IV FLUSH SCH ×2 (08:40→21:16)
--- NOTE | 2017-01-06 11:10 | PD.CAR.PN ---
CVT Progress Note Subjective/Hospital Course: 56-year-old patient with diabetes and severe infection of the right foot with a plantar abscess On physical exam patient has good femoral and popliteal pulses but I'm sure he has small vessel disease below the level of the knee although on the left side he has strong dissolves pedis posterior tibial on Doppler On the right side patient has dressing so vessels cannot be palpated or auscultated however he has good capillary refill I will order CTA with runoff to get a baseline study but I doubt that patient will require any vascular reconstruction in order to improve this healing Patient will need a wound VAC and he'll take a while for all this to heal up Full consult to follow Thanks J 12/29/16 CT scan reviewed Patient has diffuse calcific changes throughout his vascular system but no hemodynamically significant inflow stenosis. There is about 50% stenosis of the distal superficial femoral/popliteal artery but I do not see this is a hemodynamically significant event at this time. Patient does have severe distal disease with no straight shot to the foot with bits and pieces of anterior and posterior tibial arteries and multilevel occlusions of both on both sides I've seen today in the operating room the right foot and after debridement there is not much left of the plantar surface of the foot. Patient will have a wound VAC placed and we'll see how he does in next few days but there is a very high chance the patient will end up with below-knee amputation I'll discuss this with the patient at length 12/30/16 I discussed the situation with the patient today He has severe peripheral vascular disease as above noted. There is nothing at this point to reconstruct her open up Dear bits and pieces of the anterior tibial posterior tibial arteries bilateral will multilevel occlusions and dissipation of the vessels as the ankle approaches. Patient is now missing half of his right foot essentially and tarsals and metatarsals are exposed. The chance of this healing is very very minimal and I've explained to the patient a most likely will require below-knee amputation and there is about 30% chance that he'll require an above-knee amputation within the year. Patient has stents that will allow it for about a week of wound VAC and reevaluate this just to dispense with any doubt as far as the further procedure planning 01/03/17 Is previously stated patient had a massive debridement of the right foot which left him with essentially exposed tarsal and metatarsal bones and flexor tendons. This is a huge defect and there is no way to fix this without higher level amputation Nonetheless this looks no clean and this will be doable in one procedure rather than two Patient is scheduled for right below-knee amputation tomorrow 01/06/17 Status post below-knee amputation Incisions clean and dry dressing is intact and has been removed Dressing change daily Patient can transfer to rehabilitation when bed available Objective: Vital Signs Date Time Temp Pulse Resp B/P Pulse Ox O2 Delivery O2 Flow Rate FiO2 01/06/17 10:44 95 Nasal Cannula 2.00 01/06/17 08:15 98.7 88 18 113/63 98 01/06/17 08:00 98.7 88 18 135/63 97 01/06/17 04:24 99.3 95 17 142/69 96 01/06/17 00:56 99.5 90 17 126/60 93 01/05/17 20:00 99.8 92 17 142/67 93 01/05/17 18:05 16 01/05/17 16:15 18 01/05/17 16:00 99.7 95 18 145/67 93 01/05/17 12:00 97.5 90 17 118/58 92 01/05/17 12:00 97.5 90 17 118/58 92 Result Diagram: 01/04/17 1841 01/05/17 0443 Facundo Mercado MD Jan 06, 2017 11:10
[2017-01-06] MEDS: MORPHINE SULFATE 4 MG/ML INJ IV PUSH PRN ×2 (11:20→22:26)
--- NOTE | 2017-01-06 12:25 | HHI.IDPN ---
Subjective Subjective Remarks shane azevedo R BKA doing OK no fever no new complaints Antibiotics flagyl vanco Allergies: Coded Allergies: Penicillin (Verified Allergy, Unknown, 12/23/16) Objective . Vital Signs Date Time Temp Pulse Resp B/P Pulse Ox O2 Delivery O2 Flow Rate FiO2 01/06/17 12:00 99.2 92 20 129/58 97 01/06/17 10:44 95 Nasal Cannula 2.00 01/06/17 08:15 98.7 88 18 113/63 98 01/06/17 08:00 98.7 88 18 135/63 97 01/06/17 04:24 99.3 95 17 142/69 96 01/06/17 00:56 99.5 90 17 126/60 93 01/05/17 20:00 99.8 92 17 142/67 93 01/05/17 18:05 16 01/05/17 16:15 18 01/05/17 16:00 99.7 95 18 145/67 93 01/05/17 01/05/17 01/06/17 15:00 23:00 07:00 Intake Total 480 ml 608 ml 690 ml Output Total 400 ml 1000 ml 700 ml Balance 80 ml -392 ml -10 ml Intake Oral 480 ml 240 ml 240 ml IV Total 368 ml 450 ml Output Urine Total 400 ml 1000 ml 700 ml # Bowel Movements 0 . Laboratory Tests Test 01/04/17 18:41 Hemoglobin 8.8 GM/DL Hematocrit 24.8 % Laboratory Tests Test 01/05/17 04:43 Creatinine 0.82 MG/DL Estimat Glomerular Filtration 96 ML/MIN Rate Imaging Last Impressions Aorta w/Runoff CTA 12/28/16 0000 Signed Impressions: Service Date/Time: Wednesday, December 28, 2016 17:56 - CONCLUSION: 1. Patent inflow. 2. Right lower extremity with 50%% stenosis of the [id number]-[id number] popliteal artery and severe trifurcation disease without straight line flow to the foot. 3. Left lower extremity with patent outflow and severe trifurcation disease. No straight line flow to the foot. 4. Soft tissue wound involving the medial right foot. 5. Tiny bilateral pleural effusions with associated atelectasis. Marshal Mendez Jr., MD Orbit X-Ray 12/24/16 0000 Signed Impressions: Service Date/Time: Saturday, December 24, 2016 10:09 - CONCLUSION: Unremarkable exam. Rikki Boyd MD Foot MRI 12/24/16 0000 Signed Impressions: Service Date/Time: Saturday, December 24, 2016 10:27 - CONCLUSION: 1. No evidence of osteomyelitis. 2. Nonspecific soft tissue inflammatory changes involving the soft tissues along the plantar surface of the foot at the level between the first and second metatarsals. This is most likely cellulitis. Rikki Boyd MD Chest X-Ray 12/23/16 0129 Signed Impressions: Service Date/Time: Friday, December 23, 2016 01:56 - CONCLUSION: No acute disease. Juan Garza MD Foot X-Ray 12/23/16 0000 Signed Impressions: Service Date/Time: Friday, December 23, 2016 03:46 - CONCLUSION: No definite acute bony findings Juan Garza MD Physical Exam CONSTITUTIONAL/GENERAL: This is an adequately nourished patient, in no apparent distress. TUBES/LINES/DRAINS: SKIN: No jaundice, rashes, or lesions. RESPIRATORY/CHEST: Symmetric, unlabored respirations. MUSCULOSKELETAL: R BKA, dressing in place NEUROLOGICAL: Awake and alert. Non focal PSYCHIATRIC: No obvious anxiety/depression. no apparent hallucinations or other psychotic thought process. Assessment & Plan Remarks R foot DFI, no osteo and ischemic necrosis of R foot soft tissue with superinfection with B. 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
[2017-01-06] MEDS ORDERED: METR-1 PO (14:57)
[2017-01-06] MEDS ORDERED: HYDR-3516 PO (14:57)
[2017-01-06] MEDS ORDERED: AMLO5 PO (14:57)
--- NOTE | 2017-01-06 14:58 | HHI.FF ---
Face to Face Verification Diagnosis: (1) Foot ulcer due to secondary DM (2) Cellulitis (3) SIRS (systemic inflammatory response syndrome) (4) DM (diabetes mellitus) (5) Sepsis Physical Therapy Order: Evaluate and Treat Home Health Nursing Order: Diabetic education Wound care and dressing changes Nursing assessment with vital signs I have seen patient Matthew Hardin on 01/06/17. My clinical findings support the need for the requested home health care services because: Ltd mobility - disease progression I certify that my clinical findings support that this patient is homebound because: Post-op weakness Mehdi Chin MD Jan 06, 2017 14:58
--- NOTE | 2017-01-06 14:59 | HHI.PR ---
Subjective Remarks resting comfortably in bed MANUEL Dawn, plan to discharge possibly with home health care Objective Vitals Vital Signs Date Time Temp Pulse Resp B/P Pulse Ox O2 Delivery O2 Flow Rate FiO2 01/06/17 12:15 129/58 129/ 01/06/17 12:00 99.2 92 20 129/58 97 01/06/17 10:44 95 Nasal Cannula 2.00 01/06/17 08:15 98.7 88 18 113/63 98 01/06/17 08:00 98.7 88 18 135/63 97 01/06/17 04:24 99.3 95 17 142/69 96 01/06/17 00:56 99.5 90 17 126/60 93 01/05/17 20:00 99.8 92 17 142/67 93 01/05/17 18:05 16 01/05/17 16:15 18 01/05/17 16:00 99.7 95 18 145/67 93 I/O 01/05/17 01/05/17 01/05/17 01/06/17 01/06/17 01/06/17 07:00 15:00 23:00 07:00 15:00 23:00 Intake Total 120 ml 480 ml 608 ml 690 ml Output Total 1200 ml 400 ml 1000 ml 700 ml Balance -1080 ml 80 ml -392 ml -10 ml Intake Oral 120 ml 480 ml 240 ml 240 ml IV Total 368 ml 450 ml Output Urine Total 1200 ml 400 ml 1000 ml 700 ml # Bowel Movements 0 0 1 Result Diagram: 01/04/17 1841 01/05/17 0443 Objective Remarks GENERAL: 56 years old male resting in bed in no acute distress CARDIOVASCULAR: Normal rate and regular rhythm without murmurs RESPIRATORY: Fair air entry no wheezing GASTROINTESTINAL: Abdomen soft, non-tender MUSCULOSKELETAL: R foot w wound VAC in place NEURO: Alert & Oriented . Moves all ext x4 A/P Problem List: (1) Sepsis ICD Code: A41.9 Status: Acute (2) Cellulitis ICD Code: L03.90 Status: Acute (3) CESAR (acute kidney injury) ICD Code: N17.9 Status: Acute (4) DM (diabetes mellitus) ICD Code: E11.9 Status: Acute Assessment and Plan 01/04: s/p R BKA Stable, however hemoglobin was 7.6 on December 28 will repeat the level of hemoglobin 01/05: Stable post right BKA, hemoglobin stable around 8, will follow with surgery recommendation 01/06: manuel dawn dc with [facility] A/P: Sepsis secondary to right foot infection for an abscess: Sepsis resolved Superficial wound cultures growing group D enterococcus and group B strep, wound cx on 12/27 growing bacteroids sp B - Patient is status post I&D of right foot plantar abscess. Per podiatry, Necrotic fatty tissue noted and foul odor present. Milky purulent drainage noted. Abscess was down to level of plantar fascia and possible vascular compromise. - MRI does not reveal any osteomyelitis. Vascular surgery and podiatry following. s/p right below-knee amputation - Infectious disease following, continue vancomycin, cefepime and Flagyl CESAR: Secondary to sepsis and dehydration. Resolved with IV fluid - Avoid nephrotoxins. DM: Recent diagnosis of DM on previous admit, Hgb A1c 8.0 on 10/10/16. Continue to hold metformin. Sliding scale w/ Accu-Cheks. DVT Prophylaxis: Heparin sq Problem Qualifiers (1) Cellulitis: Qualified Code: L03.115 - Cellulitis of right lower extremity Mehdi Chin MD Jan 06, 2017 14:59
--- NOTE | 2017-01-06 18:42 | HHI.PR ---
Addendum to Inpatient Note Additional Information Low grade fever noted ? post op If afebrile and clinically improving by flip solorio dc abx and d/c pt Lennie Yi MD Jan 06, 2017 18:41
[2017-01-06] MEDS: metroNIDAZOLE 500 MG TAB PO SCH (22:24)
[2017-01-06] MEDS: SODIUM CHLORIDE 0.9% FLUSH 10 ML FLUSH IV FLUSH PRN (22:28)
[2017-01-06] MEDS: ACETAMINOPHEN 325 MG TAB PO PRN (23:19)
[2017-01-07] VITALS (10 sets, daily range): BP systolic 101–141; BP diastolic 48–71; PULSE 81–90; RESP 18; TEMP 96.8–100.2; O2SAT 94–97
[2017-01-07] MEDS: metroNIDAZOLE 500 MG TAB PO SCH ×3 (04:21→21:25)
[2017-01-07] MEDS: INSULIN ASPART SUPPLEMENTAL SCALE SQ SCH ×4 (05:04→22:19)
[2017-01-07 05:23] LABS: AUTOMATED NEUTROPHIL # 6.2 TH/MM3 (1.8-7.7); BASOPHIL % 0.4 % (0.0-2.0); EOSINOPHIL # 0.1 TH/MM3 (0-0.4); EOSINOPHIL % 1.1 % (0.0-4.0); HEMATOCRIT 22.2 % (39.0-51.0); HEMO FLAGS DIFF FINAL; LYMPH % 17.5 % (9.0-44.0); LYMPHOCYTE # 1.6 TH/MM3 (1.0-4.8); MEAN CELL VOLUME 82.2 FL (80.0-100.0); MEAN CORPUSCULAR HEMOGLOBIN 27.8 PG (27.0-34.0); MEAN CORPUSCULAR HGB CONC 33.8 % (32.0-36.0); MONO % 11.4 % (0.0-8.0); NEUT % 69.6 % (16.0-70.0); PLATELET COUNT 442 TH/MM3 (150-450); RED CELL DISTRIBUTION WIDTH 14.1 % (11.6-17.2); WHITE BLOOD COUNT 8.9 TH/MM3 (4.0-11.0)
[2017-01-07 05:31] LABS: ANION GAP 8 MEQ/L (5-15); AST (GOT) 17 U/L (15-37); BICARBONATE 34.8 MEQ/L (21.0-32.0); BLOOD UREA NITROGEN 16 MG/DL (7-18); CHLORIDE 96 MEQ/L (98-107); GLOMERULAR FILTRATION RATE 79 ML/MIN (>89); SODIUM (NA) 139 MEQ/L (136-145)
[2017-01-07 05:35] LABS: ALKALINE PHOSPHATASE 193 U/L (45-117); ALT (GPT) 14 U/L (12-78); TOTAL BILIRUBIN ADULT 0.2 MG/DL (0.2-1.0)
[2017-01-07] MEDS ORDERED: POTASSIUM CHLORIDE 20 MEQ CONTROLLED RELEASE TAB PO ONE (06:45)
--- NOTE | 2017-01-07 08:13 | HHI.PR ---
Subjective Remarks Tmax 100.2 , sweating very minmal pain- stump area no diarreha, no urinary symptoms up and getting around with a walker- Objective Vitals Vital Signs Date Time Temp Pulse Resp B/P Pulse Ox O2 Delivery O2 Flow Rate FiO2 01/07/17 04:00 97.5 01/07/17 00:00 100.2 88 18 118/57 94 01/06/17 20:24 97 Nasal Cannula 2.00 01/06/17 20:00 99.0 95 20 124/58 94 01/06/17 16:15 99.7 93 20 115/57 94 01/06/17 16:00 99.7 93 20 115/57 94 01/06/17 12:15 129/58 129/ 01/06/17 12:00 99.2 92 20 129/58 97 01/06/17 10:44 95 Nasal Cannula 2.00 01/06/17 08:15 98.7 88 18 113/63 98 I/O 01/06/17 01/06/17 01/06/17 01/07/17 01/07/17 01/07/17 07:00 15:00 23:00 07:00 15:00 23:00 Intake Total 690 ml 600 ml 120 ml Output Total 700 ml 800 ml 900 ml 0 ml Balance -10 ml -800 ml -300 ml 120 ml Intake Oral 240 ml 600 ml 120 ml IV Total 450 ml Output Urine Total 700 ml 800 ml 900 ml 0 ml Bladder Scan Volume Amount 10 ml # Bowel Movements 1 0 0 Result Diagram: 01/07/17 0436 01/07/17 0436 Imaging Last Impressions Aorta w/Runoff CTA 12/28/16 0000 Signed Impressions: Service Date/Time: Wednesday, December 28, 2016 17:56 - CONCLUSION: 1. Patent inflow. 2. Right lower extremity with 50%% stenosis of the [id number]-[id number] popliteal artery and severe trifurcation disease without straight line flow to the foot. 3. Left lower extremity with patent outflow and severe trifurcation disease. No straight line flow to the foot. 4. Soft tissue wound involving the medial right foot. 5. Tiny bilateral pleural effusions with associated atelectasis. Marshal Mendez Jr., MD Orbit X-Ray 12/24/16 0000 Signed Impressions: Service Date/Time: Saturday, December 24, 2016 10:09 - CONCLUSION: Unremarkable exam. Rikki J. Sirag[place], MD Foot MRI 12/24/16 0000 Signed Impressions: Service Date/Time: Saturday, December 24, 2016 10:27 - CONCLUSION: 1. No evidence of osteomyelitis. 2. Nonspecific soft tissue inflammatory changes involving the soft tissues along the plantar surface of the foot at the level between the first and second metatarsals. This is most likely cellulitis. Rikki Boyd MD Chest X-Ray 12/23/16 0129 Signed Impressions: Service Date/Time: Friday, December 23, 2016 01:56 - CONCLUSION: No acute disease. Juan Garza MD Foot X-Ray 12/23/16 0000 Signed Impressions: Service Date/Time: Friday, December 23, 2016 03:46 - CONCLUSION: No definite acute bony findings Juan Garza MD Objective Remarks anicteric sclerae lungs no rales regular rhythm abdomen soft, nontender right BKA- stump - dressing in place Procedures right BKA- 01/04 Assessment to: Remove Date of Removal: Jan 06, 2017 A/P Problem List: (1) Sepsis ICD Code: A41.9 Status: Acute (2) Cellulitis ICD Code: L03.90 Status: Acute (3) CESAR (acute kidney injury) ICD Code: N17.9 Status: Acute (4) DM (diabetes mellitus) ICD Code: E11.9 Status: Acute Assessment and Plan 01/04: s/p R BKA Stable, however hemoglobin was 7.6 on December 28 will repeat the level of hemoglobin 01/05: Stable post right BKA, hemoglobin stable around 8, will follow with surgery recommendation A/P: Sepsis secondary to right foot infection for an abscess: S/P BKA- 01/04 - with low grade fever Superficial wound cultures growing group D enterococcus and group B strep, wound cx on 12/27 growing bacteroids sp B - Patient is status post I&D of right foot plantar abscess. Per podiatry, Necrotic fatty tissue noted and foul odor present. Milky purulent drainage noted. Abscess was down to level of plantar fascia and possible vascular compromise. - MRI does not reveal any osteomyelitis. Vascular surgery and podiatry following. s/p right below-knee amputation - Infectious disease following, vancomycin- DC 01/06 - currently on Flagyl CESAR: Secondary to sepsis and dehydration. Resolved with IV fluid- taking po well - Avoid nephrotoxins. - dawn removed 01/06 late evening- check voiding- bladder scan- minimal - monitor if no output- reinsert dawn Hypokalemia- given 40 meq po this am - ff lytes, check Mg - no diarrhea, nausea or vomiting- not on any diuretics - recheck this pm DM: Recent diagnosis of DM on previous admit, Hgb A1c 8.0 on 10/10/16. . - blood glucose- 150- 250s - restart on metformin- 500 mg po bid Anemia- chronic-VS stable - ff H and H. check Iron stores DVT Prophylaxis: Heparin sq CM consult for DC planning Problem Qualifiers Problem Qualifiers (1) Cellulitis: Qualified Code: L03.115 - Cellulitis of right lower extremity Missy Blake MD Jan 07, 2017 08:13 Missy Blake MD Jan 07, 2017 08:13
[2017-01-07] MEDS: HEPARIN SODIUM - SQ 10,000 UNITS/ML VIAL SQ SCH ×2 (09:19→21:26)
[2017-01-07] MEDS: SODIUM CHLORIDE 0.9% FLUSH 10 ML FLUSH IV FLUSH SCH ×2 (09:19→21:26)
[2017-01-07] MEDS: DOCUSATE SODIUM 50 MG/SENNA 8.6 MG TAB PO SCH ×2 (09:19→21:25)
[2017-01-07] MEDS: metFORMIN HCL 500 MG TAB PO SCH ×2 (09:19→17:02)
[2017-01-07] MEDS: amLODIPine BESYLATE 5 MG TAB PO SCH (09:19)
[2017-01-07] MEDS: MORPHINE SULFATE 4 MG/ML INJ IV PUSH PRN ×2 (10:18→15:42)
--- NOTE | 2017-01-07 10:37 | HHI.DS ---
Discharge Summary Admission Date December 23, 2016 at 04:08 Admitting Diagnosis right foot infection, sepsis (1) Sepsis ICD Code: A41.9 (2) Cellulitis ICD Code: L03.90 (3) CESAR (acute kidney injury) ICD Code: N17.9 (4) DM (diabetes mellitus) ICD Code: E11.9 Procedures right BKA- 01/04 Brief History - From Admission This is a 56-year-old male with a PMH of HTN and DM who presented to the ER with complaints of right foot infection x1 month. States noticed blister on his foot approx 1 month ago which has gotten progressively worse. Today w/ subjective fever and worsening pain at which time he presented to the ER. On arrival, BP 127/59, HR 119, O2 sat 98% on RA, Temp 100.4. WBC 15.6. Creatinine 1.33, previously 0.85 on 10/13/16. BS 242. Lactic Acid 0.9. INR 1.0. CXR with no acute findings. Foot X-ray with no evidence of osteomyelitis. S/p Blood/Wound Cultures, Vanc/Ancef in ER. CBC/BMP: 01/07/17 0436 01/07/17 0436 Significant Findings Laboratory Tests Test 01/04/17 01/04/17 01/07/17 17:45 18:41 04:36 Vancomycin Level Trough 18.4 MCG/ML (5.0-10.0) Hemoglobin 8.8 GM/DL 7.5 GM/DL (13.0-17.0) (13.0-17.0) Hematocrit 24.8 % 22.2 % (39.0-51.0) (39.0-51.0) Red Blood Count 2.70 MIL/MM3 (4.50-5.90) Mean Platelet Volume 6.5 FL (7.0-11.0) Monocytes (%) (Auto) 11.4 % (0.0-8.0) Monocytes # (Auto) 1.0 TH/MM3 (0-0.9) Potassium Level 3.0 MEQ/L (3.5-5.1) Chloride Level 96 MEQ/L (98-107) Carbon Dioxide Level 34.8 MEQ/L (21.0-32.0) Estimat Glomerular Filtration 79 ML/MIN (>89) Rate Random Glucose 143 MG/DL (74-106) Calcium Level 8.0 MG/DL (8.5-10.1) Alkaline Phosphatase 193 U/L (45-117) Total Protein 5.7 GM/DL (6.4-8.2) Albumin 1.8 GM/DL (3.4-5.0) PE at Discharge anicteric sclerae lungs no rales regular rhythm abdomen soft, nontender right BKA- stump - dressing in place Hospital Course Sepsis secondary to right foot infection for an abscess: Sepsis resolved Superficial wound cultures growing group D enterococcus and group B strep, wound cx on 12/27 growing bacteroids sp B - Patient is status post I&D of right foot plantar abscess. Per podiatry, Necrotic fatty tissue noted and foul odor present. Milky purulent drainage noted. Abscess was down to level of plantar fascia and possible vascular compromise. - MRI does not reveal any osteomyelitis. Vascular surgery and podiatry following. s/p right below-knee amputation - Infectious disease following, continue vancomycin, cefepime and Flagyl detail daily course 01/04: s/p R BKA Stable, however hemoglobin was 7.6 on December 28 will repeat the level of hemoglobin 01/05: Stable post right BKA, hemoglobin stable around 8, will follow with surgery recommendation 01/06: fortunato dawn dc with [facility] Pt Condition on Discharge: Stable Discharge Disposition: Disch w/ Home Health Serv Discharge Time: > 30 minutes Discharge Instructions New Medications: Amlodipine (Norvasc) 5 Mg Tab 5 MG PO DAILY htn #30 TAB Hydrocodone-Acetaminophen (Hydrocodone-Acetaminophen) 5-325 mg Tab 1 TAB PO Q4H PRN PAIN SCALE 3 TO 5 #20 TAB Metronidazole (Flagyl) 500 Mg Tab 500 MG PO Q8HR infx #21 TAB Continued Medications: Insulin Aspart Inj (Novolog Inj) 100 Unit/Ml Inj 1 UNITS SQ ACHS SLIDING SCALE Blood Sugar Management Days 30 Ref 3 INJECTION Insulin Human Isophane-Regular 70-30 Inj (Novolin 70-30 Inj) 1,000 Unit/10 Ml Vial 10 UNITS SQ BID@08,17 Blood Sugar Management #1 Ref 3 INJECTION Metformin (Metformin) 500 Mg Tab 500 MG PO BIDPC With meals Blood Sugar Management #180 Ref 0 TAB Mehdi Chin MD Jan 07, 2017 10:37
--- NOTE | 2017-01-07 13:00 | HHI.IDPN ---
Subjective Subjective Remarks Low grade fever noted last night again no other complaints no diarrhea, nause, vomiting + RLE pain Antibiotics none Allergies: Coded Allergies: Penicillin (Verified Allergy, Unknown, 12/23/16) Objective . Vital Signs Date Time Temp Pulse Resp B/P Pulse Ox O2 Delivery O2 Flow Rate FiO2 01/07/17 12:29 101/48 01/07/17 12:00 99.4 82 18 101/48 97 01/07/17 08:58 97 Nasal Cannula 2.00 01/07/17 08:29 98.0 81 18 127/62 97 01/07/17 08:00 98.0 81 18 127/62 97 01/07/17 04:00 97.5 01/07/17 00:00 100.2 88 18 118/57 94 01/06/17 20:24 97 Nasal Cannula 2.00 01/06/17 20:00 99.0 95 20 124/58 94 01/06/17 16:15 99.7 93 20 115/57 94 01/06/17 16:00 99.7 93 20 115/57 94 01/06/17 01/06/17 01/07/17 15:00 23:00 07:00 Intake Total 600 ml 120 ml Output Total 800 ml 900 ml 0 ml Balance -800 ml -300 ml 120 ml Intake Oral 600 ml 120 ml Output Urine Total 800 ml 900 ml 0 ml Bladder Scan Volume Amount 10 ml # Bowel Movements 1 0 0 . Laboratory Tests Test 01/07/17 04:36 White Blood Count 8.9 TH/MM3 Red Blood Count 2.70 MIL/MM3 Hemoglobin 7.5 GM/DL Hematocrit 22.2 % Mean Corpuscular Volume 82.2 FL Mean Corpuscular Hemoglobin 27.8 PG Mean Corpuscular Hemoglobin 33.8 % Concent Red Cell Distribution Width 14.1 % Platelet Count 442 TH/MM3 Mean Platelet Volume 6.5 FL Neutrophils (%) (Auto) 69.6 % Lymphocytes (%) (Auto) 17.5 % Monocytes (%) (Auto) 11.4 % Eosinophils (%) (Auto) 1.1 % Basophils (%) (Auto) 0.4 % Neutrophils # (Auto) 6.2 TH/MM3 Lymphocytes # (Auto) 1.6 TH/MM3 Monocytes # (Auto) 1.0 TH/MM3 Eosinophils # (Auto) 0.1 TH/MM3 Basophils # (Auto) 0.0 TH/MM3 CBC Comment DIFF FINAL Differential Comment Laboratory Tests Test 01/07/17 04:36 Sodium Level 139 MEQ/L Potassium Level 3.0 MEQ/L Chloride Level 96 MEQ/L Carbon Dioxide Level 34.8 MEQ/L Anion Gap 8 MEQ/L Blood Urea Nitrogen 16 MG/DL Creatinine 0.98 MG/DL Estimat Glomerular Filtration 79 ML/MIN Rate Random Glucose 143 MG/DL Calcium Level 8.0 MG/DL Magnesium Level 2.1 MG/DL Total Bilirubin 0.2 MG/DL Aspartate Amino Transf 17 U/L (AST/SGOT) Alanine Aminotransferase 14 U/L (ALT/SGPT) Alkaline Phosphatase 193 U/L Total Protein 5.7 GM/DL Albumin 1.8 GM/DL Imaging Last Impressions Aorta w/Runoff CTA 12/28/16 0000 Signed Impressions: Service Date/Time: Wednesday, December 28, 2016 17:56 - CONCLUSION: 1. Patent inflow. 2. Right lower extremity with 50%% stenosis of the [id number] popliteal artery and severe trifurcation disease without straight line flow to the foot. 3. Left lower extremity with patent outflow and severe trifurcation disease. No straight line flow to the foot. 4. Soft tissue wound involving the medial right foot. 5. Tiny bilateral pleural effusions with associated atelectasis. Marshal Mendez Jr., MD Orbit X-Ray 12/24/16 0000 Signed Impressions: Service Date/Time: Saturday, December 24, 2016 10:09 - CONCLUSION: Unremarkable exam. Rikki Boyd MD Foot MRI 12/24/16 0000 Signed Impressions: Service Date/Time: Saturday, December 24, 2016 10:27 - CONCLUSION: 1. No evidence of osteomyelitis. 2. Nonspecific soft tissue inflammatory changes involving the soft tissues along the plantar surface of the foot at the level between the first and second metatarsals. This is most likely cellulitis. Rikki Boyd MD Chest X-Ray 12/23/16 0129 Signed Impressions: Service Date/Time: Friday, December 23, 2016 01:56 - CONCLUSION: No acute disease. Juan Garza MD Foot X-Ray 12/23/16 0000 Signed Impressions: Service Date/Time: Friday, December 23, 2016 03:46 - CONCLUSION: No definite acute bony findings Juan Garza MD Physical Exam CONSTITUTIONAL/GENERAL: This is an adequately nourished patient, in no apparent distress. TUBES/LINES/DRAINS: SKIN: No jaundice, rashes, or lesions. HEENT: no oral thrush non icteric sclerae RESPIRATORY/CHEST: Symmetric, unlabored respirations. Clear toauscultation CARDIOVASCULAR: no murmurs, rubs, gallops GI: abdomen is soft, not tender not distended, no oraganomegaly MUSCULOSKELETAL: R BKA, dressing in place Incision is dry, clean well opproximated no cellulitic changes evolving ecchymoses + some 1+ edema NEUROLOGICAL: Awake and alert. Non focal PSYCHIATRIC: No obvious anxiety/depression. no apparent hallucinations or other psychotic thought process. Assessment & Plan Remarks R foot DFI, no osteo and ischemic necrosis of R foot soft tissue with superinfection with B. frag -sp BKA, healing nicely PCN allergy in the form of rash in infancy - per pt Persistent fever ? source - had fever on admission, then no fever then restarted to have it since 01/04 - ? post op - cont to monitor off abx - monitor for fevers - if afebrile x 24 hrs pt can be discharged, o/w will need fever /FUO w/u dw Lennie Mirza MD Jan 07, 2017 13:00
[2017-01-07 15:28] LABS: ANION GAP 3 MEQ/L (5-15); BICARBONATE 36.9 MEQ/L (21.0-32.0); BLOOD UREA NITROGEN 16 MG/DL (7-18); CHLORIDE 98 MEQ/L (98-107); GLOMERULAR FILTRATION RATE 73 ML/MIN (>89); POTASSIUM 3.7 MEQ/L (3.5-5.1); SODIUM (NA) 138 MEQ/L (136-145)
[2017-01-07 15:32] LABS: FERRITIN 417 NG/ML (26-388); TRANSFERRIN IRON PROFILE 50 MG/DL (200-360)
--- NOTE | 2017-01-07 16:42 | PD.CAR.PN ---
CVT Progress Note Subjective/Hospital Course: 56-year-old patient with diabetes and severe infection of the right foot with a plantar abscess On physical exam patient has good femoral and popliteal pulses but I'm sure he has small vessel disease below the level of the knee although on the left side he has strong dissolves pedis posterior tibial on Doppler On the right side patient has dressing so vessels cannot be palpated or auscultated however he has good capillary refill I will order CTA with runoff to get a baseline study but I doubt that patient will require any vascular reconstruction in order to improve this healing Patient will need a wound VAC and he'll take a while for all this to heal up Full consult to follow Thanks J 12/29/16 CT scan reviewed Patient has diffuse calcific changes throughout his vascular system but no hemodynamically significant inflow stenosis. There is about 50% stenosis of the distal superficial femoral/popliteal artery but I do not see this is a hemodynamically significant event at this time. Patient does have severe distal disease with no straight shot to the foot with bits and pieces of anterior and posterior tibial arteries and multilevel occlusions of both on both sides I've seen today in the operating room the right foot and after debridement there is not much left of the plantar surface of the foot. Patient will have a wound VAC placed and we'll see how he does in next few days but there is a very high chance the patient will end up with below-knee amputation I'll discuss this with the patient at length 12/30/16 I discussed the situation with the patient today He has severe peripheral vascular disease as above noted. There is nothing at this point to reconstruct her open up Dear bits and pieces of the anterior tibial posterior tibial arteries bilateral will multilevel occlusions and dissipation of the vessels as the ankle approaches. Patient is now missing half of his right foot essentially and tarsals and metatarsals are exposed. The chance of this healing is very very minimal and I've explained to the patient a most likely will require below-knee amputation and there is about 30% chance that he'll require an above-knee amputation within the year. Patient has stents that will allow it for about a week of wound VAC and reevaluate this just to dispense with any doubt as far as the further procedure planning 01/03/17 Is previously stated patient had a massive debridement of the right foot which left him with essentially exposed tarsal and metatarsal bones and flexor tendons. This is a huge defect and there is no way to fix this without higher level amputation Nonetheless this looks no clean and this will be doable in one procedure rather than two Patient is scheduled for right below-knee amputation tomorrow 01/06/17 Status post below-knee amputation Incisions clean and dry dressing is intact and has been removed Dressing change daily Patient can transfer to rehabilitation when bed available 01/07/17 Incisions clean and dry well-perfused Change dressing daily Patient can be discharged from my point any time with follow-up with me in about 3 weeks Objective: Vital Signs Date Time Temp Pulse Resp B/P Pulse Ox O2 Delivery O2 Flow Rate FiO2 01/07/17 16:27 96.8 86 18 139/71 95 01/07/17 12:29 101/48 01/07/17 12:00 99.4 82 18 101/48 97 01/07/17 08:58 97 Nasal Cannula 2.00 01/07/17 08:29 98.0 81 18 127/62 97 01/07/17 08:00 98.0 81 18 127/62 97 01/07/17 04:00 97.5 01/07/17 00:00 100.2 88 18 118/57 94 01/06/17 20:24 97 Nasal Cannula 2.00 01/06/17 20:00 99.0 95 20 124/58 94 Labs: Laboratory Tests Test 01/07/17 14:35 Hemoglobin 8.4 GM/DL (13.0-17.0) Hematocrit 25.0 % (39.0-51.0) Sodium Level 138 MEQ/L (136-145) Potassium Level 3.7 MEQ/L (3.5-5.1) Chloride Level 98 MEQ/L (98-107) Carbon Dioxide Level 36.9 MEQ/L (21.0-32.0) Anion Gap 3 MEQ/L (5-15) Blood Urea Nitrogen 16 MG/DL (7-18) Creatinine 1.04 MG/DL (0.60-1.30) Estimat Glomerular Filtration 73 ML/MIN (>89) Rate Random Glucose 181 MG/DL (74-106) Calcium Level 8.4 MG/DL (8.5-10.1) Iron Level 23 MCG/DL (65-175) Total Iron Binding Capacity 70 MCG/DL (250-450) Percent Iron Saturation 32.9 % (20-50) Ferritin 417 NG/ML (26-388) Result Diagram: 01/07/17 1435 01/07/17 1435 Facundo Mercado MD Jan 07, 2017 16:42
--- NOTE | 2017-01-07 16:48 | MP ---
cc: CARLTON BASSETT DPFaith DATE OF 56 DATE OF SURGERY 12/24/2016 The patient is a 56-year-old male who presented with right foot infection for about a month. He states that he saw a blister on his foot a month ago that got progressively worse and had fever and pain and he came into the emergency department for evaluation. He was noted to have erythema to the right plantar aspect of the arch with full-thickness ulceration under the second metatarsal head area with no purulence noted at that time to the original ulceration area, but significant pain with significant redness traveling proximally into the plantar arch toward the ankle area. He had significant pain to palpation to both the original ulceration area, sub second metatarsal head as well as the plantar arch with palpable pulses at the time. However, his sensation was diminished at the time. I discussed with him the importance of moving forward with surgery. I also ordered an MRI which came back stating that there was no evidence of osteomyelitis at the time. However, there were nonspecific inflammatory changes in the soft tissues of the plantar surface of the foot, but there was no comment on the presence or absence of an abscess at that time. I discussed with the patient that due to the clinical appearance and severity of the infection, I recommended incision and drainage as soon as possible. He consented to surgery. He was seen in preop holding by myself, nursing staff and Anesthesia where the correct patient, side and site were all confirmed to be correct in the right foot. He was taken to the surgical suite, placed in supine position where attention was directed to the right foot. It was prepped and draped in normal sterile fashion followed by attention directed to the plantar original ulceration sub second metatarsal area which had an ulcer down to flexor tendon. It communicated proximally to very obvious deep abscess in the plantar arch area. Upon incision and drainage of the area, the ulceration was found to probe even more proximally. The incision continued into the medial arch area and was opened up, cultured and then irrigated with 3 liters of normal sterile saline. There was noted to be significant necrotic fatty tissue and foul odor present with milky purulent drainage. The abscess at that time was noted to be down to the plantar fascia area. The wound was copiously irrigated and packed open with Xeroform followed by dressing consisting of 4x4s, ABD, cast padding and Jakob. Due to the severity of infection, I anticipate that we will await the cultures and continue IV antibiotics and we will plan for a repeat I&D later in the week and continue to assess the wound. SHORT OPERATIVE NOTE SURGEON Inés Bassett MD [employer] Staff. PREOPERATIVE DIAGNOSIS Right foot abscess. POSTOPERATIVE DIAGNOSIS Right foot abscess. PROCEDURE Incision and drainage right foot abscess. PATHOLOGY Culture right foot. ANESTHESIA General endotracheal anesthesia. COMPLICATIONS None. CONDITION Stable to PACU. DISPOSITION Non-weightbearing right foot with plan for repeat incision and drainage later in the week and continue wound evaluation to determine further treatment. Carlton LEON/ /6:56 PM /4:46 PM
--- NOTE | 2017-01-07 16:58 | MP ---
cc: ALONSO BASSETT DPFaith DATE OF 56 DATE OF SURGERY 12/29/16 The patient presented with a bad infection to his plantar right foot. He underwent incision and drainage previously on 12/24/16 and was packed open. He was taken back to the operating room planned for today. I discussed with him that he would likely need more surgery and that we would have to examine the wound further to determine how many more surgeries would be required in order to resolve the infection. I discussed with the patient the risks, benefits and potential complications of surgery and he consented to move forward with incision and drainage right foot with possible wound VAC application. He was taken back to the surgical suite, placed in supine position where attention was directed to the right foot. It was prepped and draped in normal sterile fashion followed by attention directed to the right plantar foot wound. It was noted that there was significant worsening and deterioration of the condition of the wound to the plantar aspect of the right foot from the previous surgery with significant amount of necrotic tissue increased to the area and this was to the plantar and dorsal aspect of the foot. The right plantar foot wound was found to encompass the plantar first, second and third metatarsophalangeal joint areas and continued proximally into the medial arch and tarsal tunnel areas with both the superficial and deep flexor tendons as well as the plantar fascia all necrotic in the base of the wound. There was a secondary dorsal necrotic wound to the dorsomedial foot at the first, second and third metatarsal cuneiform joint areas circular in shape. It was also found to be down to extensor tendons. All the necrotic tissue was removed from those respective areas to the dorsal and plantar right foot with a #15 blade rongeur and minimal bleeding was found to have occurred in these areas. It appears that there are gangrenous changes that are occurring in this foot. Secondary to the functional capacity of the foot being grossly compromised with the removal of all of these necrotic plantar and dorsal structures in the foot, I will be consulting Dr. Mercado intraoperatively. He came in and examined the extent of the soft tissue damage and concurred with my opinion that the patient would benefit mostly from a functional perspective as well as to resolve the infection with a [id number] amputation. I used the Versajet then to remove further necrotic tissue and irrigated both areas with 3 liters of normal saline followed by wound VAC application to the right foot set at 125 mmHg medium continuous. He will undergo further evaluation with Dr. Mercado for possible BKA later in the week and will continue his wound VAC changes as ordered in the meantime. He was taken back to PACU with vital signs stable and vascular status intact to the remainder of the right foot, although minimal vascular status was intact. The wound VAC was functioning properly after applied and there were no complications in the procedure. SHORT OPERATIVE NOTE SURGEON Inés Bassett MD DATA MANAGEMENT SPECIALIST Staff PREOPERATIVE DIAGNOSIS Infection right foot. POSTOPERATIVE DIAGNOSIS Infection right foot. PROCEDURE Incision and drainage right foot abscess with wound VAC application. COMPLICATIONS None. ESTIMATED BLOOD LOSS 50 mL ANESTHESIA General endotracheal anesthesia CONDITION Stable to PACU. DISPOSITION The patient underwent intraoperative consultation for a [id number] amputation and will likely have this occur later in the week. He will be non-weightbearing to the right foot with the wound VCA intact in the meantime. Alonso LEON/ /7:03 PM /4:52 PM
[2017-01-08] VITALS: BP 109/56; PULSE 83; RESP 18; TEMP 98.2; O2SAT 94
[2017-01-08] MEDS: INSULIN ASPART SUPPLEMENTAL SCALE SQ SCH ×4 (05:24→21:08)
[2017-01-08] MEDS: metroNIDAZOLE 500 MG TAB PO SCH ×3 (05:24→20:26)
[2017-01-08 08:00] VITALS: BP 130/64; PULSE 85; RESP 17; TEMP 98.6; O2SAT 96
[2017-01-08] MEDS: metFORMIN HCL 500 MG TAB PO SCH ×2 (08:08→17:42)
[2017-01-08] MEDS: DOCUSATE SODIUM 50 MG/SENNA 8.6 MG TAB PO SCH ×2 (08:08→20:25)
[2017-01-08] MEDS: HEPARIN SODIUM - SQ 10,000 UNITS/ML VIAL SQ SCH ×2 (08:08→20:26)
[2017-01-08] MEDS: amLODIPine BESYLATE 5 MG TAB PO SCH (08:08)
[2017-01-08] MEDS: SODIUM CHLORIDE 0.9% FLUSH 10 ML FLUSH IV FLUSH SCH ×2 (08:09→20:26)
[2017-01-08 09:13] VITALS: O2SAT 96
--- NOTE | 2017-01-08 10:02 | HHI.PR ---
Addendum to Inpatient Note Additional Information Pt remains afebrile for 24 hrs off abx OK to discharge from ID standpoint No abx needed Lennie Yi MD Jan 08, 2017 10:01
[2017-01-08 12:00] VITALS: BP 109/57; PULSE 92; RESP 15; TEMP 97.3; O2SAT 95
--- NOTE | 2017-01-08 12:53 | HHI.PR ---
Subjective Remarks no complains just starting to get around with a walker- still unsteady and just learning- needs standby assist Objective Vitals Vital Signs Date Time Temp Pulse Resp B/P Pulse Ox O2 Delivery O2 Flow Rate FiO2 01/08/17 12:00 97.3 92 15 109/57 95 01/08/17 09:13 96 Nasal Cannula 2.00 01/08/17 08:00 98.6 85 17 130/64 96 01/08/17 00:00 98.2 83 18 109/56 94 01/07/17 20:00 98.7 90 18 141/65 96 01/07/17 17:35 95 Nasal Cannula 2.00 01/07/17 16:27 96.8 86 18 139/71 95 I/O 01/07/17 01/07/17 01/07/17 01/08/17 01/08/17 01/08/17 07:00 15:00 23:00 07:00 15:00 23:00 Intake Total 120 ml 240 ml 240 ml 120 ml Output Total 0 ml 400 ml 450 ml Balance 120 ml 240 ml 240 ml -280 ml -450 ml Intake Oral 120 ml 240 ml 240 ml 120 ml IV Total 0 ml 0 ml Output Urine Total 0 ml 400 ml 450 ml Bladder Scan Volume Amount 10 ml # Voids 3 # Bowel Movements 0 1 0 Result Diagram: 01/07/17 1435 01/07/17 1435 Imaging Last Impressions Aorta w/Runoff CTA 12/28/16 0000 Signed Impressions: Service Date/Time: Wednesday, December 28, 2016 17:56 - CONCLUSION: 1. Patent inflow. 2. Right lower extremity with 50%% stenosis of the [id number]-[id number] popliteal artery and severe trifurcation disease without straight line flow to the foot. 3. Left lower extremity with patent outflow and severe trifurcation disease. No straight line flow to the foot. 4. Soft tissue wound involving the medial right foot. 5. Tiny bilateral pleural effusions with associated atelectasis. Marshal Mendez Jr., MD Orbit X-Ray 12/24/16 0000 Signed Impressions: Service Date/Time: Saturday, December 24, 2016 10:09 - CONCLUSION: Unremarkable exam. Rikki Boyd MD Foot MRI 12/24/16 0000 Signed Impressions: Service Date/Time: Saturday, December 24, 2016 10:27 - CONCLUSION: 1. No evidence of osteomyelitis. 2. Nonspecific soft tissue inflammatory changes involving the soft tissues along the plantar surface of the foot at the level between the first and second metatarsals. This is most likely cellulitis. Rikki Boyd MD Chest X-Ray 12/23/16 0129 Signed Impressions: Service Date/Time: Friday, December 23, 2016 01:56 - CONCLUSION: No acute disease. Juan Garza MD Foot X-Ray 12/23/16 0000 Signed Impressions: Service Date/Time: Friday, December 23, 2016 03:46 - CONCLUSION: No definite acute bony findings Juan Garza MD Objective Remarks anicteric sclerae lungs no rales regular rhythm abdomen soft, nontender right BKA- stump - - sutures intack, dry, + ecchymoses post op site Procedures right BKA- 01/04 Date of Removal: Jan 06, 2017 A/P Problem List: (1) Sepsis ICD Code: A41.9 Status: Acute (2) Cellulitis ICD Code: L03.90 Status: Acute (3) CESAR (acute kidney injury) ICD Code: N17.9 Status: Acute (4) DM (diabetes mellitus) ICD Code: E11.9 Status: Acute Assessment and Plan 01/04: s/p R BKA Stable, however hemoglobin was 7.6 on December 28 will repeat the level of hemoglobin 01/05: Stable post right BKA, hemoglobin stable around 8, will follow with surgery recommendation A/P: Sepsis secondary to right foot infection for an abscess: S/P BKA- 01/04 Superficial wound cultures growing group D enterococcus and group B strep, wound cx on 12/27 growing bacteroids sp B - Patient is status post I&D of right foot plantar abscess. Per podiatry, Necrotic fatty tissue noted and foul odor present. Milky purulent drainage noted. Abscess was down to level of plantar fascia and possible vascular compromise. - MRI does not reveal any osteomyelitis. Vascular surgery and podiatry following. s/p right below-knee amputation - Infectious disease following, vancomycin- DC 01/06 - currently on Flagyl - DC - per ID no need for antiibotics CESAR: Secondary to sepsis and dehydration. Resolved with IV fluid- taking po well - Avoid nephrotoxins. - dawn removed 01/06 Hypokalemia-resolved - no diarrhea, nausea or vomiting- not on any diuretics DM: Recent diagnosis of DM on previous admit, Hgb A1c 8.0 on 10/10/16. . - blood glucose- 150- 250s - restarted on metformin- 500 mg po bid- montior and adjust Anemia- chronic-VS stable - ff H and H- stable, Iron stuides- suggestive of chronic disease DVT Prophylaxis: Heparin sq CM consult for DC planning- no snf benefits or home heatlh- CM may get nursing for courtesy visits but not PT will DC if ambulatig more steadily with PT with walker Problem Qualifiers (1) Cellulitis: Qualified Code: L03.115 - Cellulitis of right lower extremity Missy Blake MD Jan 08, 2017 12:53
[2017-01-08] MEDS ORDERED: MORPHINE SULFATE 4 MG/ML INJ IV PUSH PRN (13:00)
--- NOTE | 2017-01-08 14:41 | PD.CAR.PN ---
CVT Progress Note Subjective/Hospital Course: 56-year-old patient with diabetes and severe infection of the right foot with a plantar abscess On physical exam patient has good femoral and popliteal pulses but I'm sure he has small vessel disease below the level of the knee although on the left side he has strong dissolves pedis posterior tibial on Doppler On the right side patient has dressing so vessels cannot be palpated or auscultated however he has good capillary refill I will order CTA with runoff to get a baseline study but I doubt that patient will require any vascular reconstruction in order to improve this healing Patient will need a wound VAC and he'll take a while for all this to heal up Full consult to follow Thanks J 12/29/16 CT scan reviewed Patient has diffuse calcific changes throughout his vascular system but no hemodynamically significant inflow stenosis. There is about 50% stenosis of the distal superficial femoral/popliteal artery but I do not see this is a hemodynamically significant event at this time. Patient does have severe distal disease with no straight shot to the foot with bits and pieces of anterior and posterior tibial arteries and multilevel occlusions of both on both sides I've seen today in the operating room the right foot and after debridement there is not much left of the plantar surface of the foot. Patient will have a wound VAC placed and we'll see how he does in next few days but there is a very high chance the patient will end up with below-knee amputation I'll discuss this with the patient at length 12/30/16 I discussed the situation with the patient today He has severe peripheral vascular disease as above noted. There is nothing at this point to reconstruct her open up Dear bits and pieces of the anterior tibial posterior tibial arteries bilateral will multilevel occlusions and dissipation of the vessels as the ankle approaches. Patient is now missing half of his right foot essentially and tarsals and metatarsals are exposed. The chance of this healing is very very minimal and I've explained to the patient a most likely will require below-knee amputation and there is about 30% chance that he'll require an above-knee amputation within the year. Patient has stents that will allow it for about a week of wound VAC and reevaluate this just to dispense with any doubt as far as the further procedure planning 01/03/17 Is previously stated patient had a massive debridement of the right foot which left him with essentially exposed tarsal and metatarsal bones and flexor tendons. This is a huge defect and there is no way to fix this without higher level amputation Nonetheless this looks no clean and this will be doable in one procedure rather than two Patient is scheduled for right below-knee amputation tomorrow 01/06/17 Status post below-knee amputation Incisions clean and dry dressing is intact and has been removed Dressing change daily Patient can transfer to rehabilitation when bed available 01/07/17 Incisions clean and dry well-perfused Change dressing daily Patient can be discharged from my point any time with follow-up with me in about 3 weeks 01/08/17 Stump clean and dry Patient is doing his best to be mobile and walk with a walker versus crutches It's imperative that it doesn't fall on his stump for this could lead to a disaster and a higher level amputation From my point can be discharged any time follow-up with me in several weeks Objective: Vital Signs Date Time Temp Pulse Resp B/P Pulse Ox O2 Delivery O2 Flow Rate FiO2 01/08/17 12:00 97.3 92 15 109/57 95 01/08/17 09:13 96 Nasal Cannula 2.00 01/08/17 08:00 98.6 85 17 130/64 96 01/08/17 00:00 98.2 83 18 109/56 94 01/07/17 20:00 98.7 90 18 141/65 96 01/07/17 17:35 95 Nasal Cannula 2.00 01/07/17 16:27 96.8 86 18 139/71 95 Result Diagram: 01/07/17 1435 01/07/17 1435 Facundo Mercado MD Jan 08, 2017 2:40 pm
[2017-01-08 16:00] VITALS: BP 115/61; PULSE 81; RESP 15; TEMP 97.7; O2SAT 96
[2017-01-08 21:12] VITALS: BP 141/68; PULSE 77; RESP 18; TEMP 98.8; O2SAT 96
[2017-01-09 01:25] VITALS: BP 134/70; PULSE 72; RESP 18; TEMP 97.2; O2SAT 95
[2017-01-09] MEDS: metroNIDAZOLE 500 MG TAB PO SCH (05:25)
[2017-01-09] MEDS: INSULIN ASPART SUPPLEMENTAL SCALE SQ SCH ×4 (06:19→19:51)
[2017-01-09] MEDS ORDERED: traMADol/ACETAMINOPHEN 37.5/325 1 TAB PO PRN (07:45)
[2017-01-09] MEDS: HEPARIN SODIUM - SQ 10,000 UNITS/ML VIAL SQ SCH ×2 (07:54→19:46)
[2017-01-09] MEDS: metFORMIN HCL 500 MG TAB PO SCH ×2 (07:54→16:57)
[2017-01-09] MEDS: DOCUSATE SODIUM 50 MG/SENNA 8.6 MG TAB PO SCH ×2 (07:54→19:45)
[2017-01-09] MEDS: amLODIPine BESYLATE 5 MG TAB PO SCH (07:54)
[2017-01-09] MEDS: SODIUM CHLORIDE 0.9% FLUSH 10 ML FLUSH IV FLUSH SCH ×2 (07:55→19:51)
[2017-01-09 08:00] VITALS: BP 133/68; PULSE 81; RESP 17; TEMP 97.5; O2SAT 97
--- NOTE | 2017-01-09 08:35 | HHI.PR ---
Subjective Remarks minimal pain- not requiring any pain meds experience sweating at nights, no chills- no T documented no nausea or vomiting Objective Vitals Vital Signs Date Time Temp Pulse Resp B/P Pulse Ox O2 Delivery O2 Flow Rate FiO2 01/09/17 01:25 97.2 72 18 134/70 95 01/08/17 21:12 98.8 77 18 141/68 96 01/08/17 16:00 97.7 81 15 115/61 96 01/08/17 12:00 97.3 92 15 109/57 95 01/08/17 09:13 96 Nasal Cannula 2.00 I/O 01/08/17 01/08/17 01/08/17 01/09/17 01/09/17 01/09/17 07:00 15:00 23:00 07:00 15:00 23:00 Intake Total 120 ml 400 ml Output Total 400 ml 450 ml 800 ml Balance -280 ml -50 ml -800 ml Intake Oral 120 ml 400 ml IV Total 0 ml Output Urine Total 400 ml 450 ml 800 ml # Voids 2 # Bowel Movements 0 1 Result Diagram: 01/07/17 1435 01/07/17 1435 Imaging Last Impressions Aorta w/Runoff CTA 12/28/16 0000 Signed Impressions: Service Date/Time: Wednesday, December 28, 2016 17:56 - CONCLUSION: 1. Patent inflow. 2. Right lower extremity with 50%% stenosis of the seuit-vpr-wnom popliteal artery and severe trifurcation disease without straight line flow to the foot. 3. Left lower extremity with patent outflow and severe trifurcation disease. No straight line flow to the foot. 4. Soft tissue wound involving the medial right foot. 5. Tiny bilateral pleural effusions with associated atelectasis. Marshal Mendez Jr., MD Orbit X-Ray 12/24/16 0000 Signed Impressions: Service Date/Time: Saturday, December 24, 2016 10:09 - CONCLUSION: Unremarkable exam. Rikki Boyd MD Foot MRI 12/24/16 0000 Signed Impressions: Service Date/Time: Saturday, December 24, 2016 10:27 - CONCLUSION: 1. No evidence of osteomyelitis. 2. Nonspecific soft tissue inflammatory changes involving the soft tissues along the plantar surface of the foot at the level between the first and second metatarsals. This is most likely cellulitis. Rikki Boyd MD Chest X-Ray 12/23/16 0129 Signed Impressions: Service Date/Time: Friday, December 23, 2016 01:56 - CONCLUSION: No acute disease. Juan Garza MD Foot X-Ray 12/23/16 0000 Signed Impressions: Service Date/Time: Friday, December 23, 2016 03:46 - CONCLUSION: No definite acute bony findings Juan Garza MD Objective Remarks anicteric sclerae lungs no rales regular rhythm abdomen soft, nontender right BKA- stump - - sutures intack, dry, + ecchymoses post op site (01/08 exam) - staff to call me for this am dressing change Procedures right BKA- 01/04 Date of Removal: Jan 06, 2017 A/P Problem List: (1) Sepsis ICD Code: A41.9 Status: Acute (2) Cellulitis ICD Code: L03.90 Status: Acute (3) CESAR (acute kidney injury) ICD Code: N17.9 Status: Acute (4) DM (diabetes mellitus) ICD Code: E11.9 Status: Acute Assessment and Plan 56 years old male 01/04: s/p R BKA Stable, however hemoglobin was 7.6 on December 28 will repeat the level of hemoglobin 01/05: Stable post right BKA, hemoglobin stable around 8, will follow with surgery recommendation A/P: Sepsis secondary to right foot infection for an abscess: S/P BKA- 01/04 Superficial wound cultures growing group D enterococcus and group B strep, wound cx on 12/27 growing bacteroids sp B - Patient is status post I&D of right foot plantar abscess. Per podiatry, Necrotic fatty tissue noted and foul odor present. Milky purulent drainage noted. Abscess was down to level of plantar fascia and possible vascular compromise. - MRI does not reveal any osteomyelitis. Vascular surgery and podiatry following. s/p right below-knee amputation - Infectious disease following, vancomycin- DC 01/06 - S/P Flagyl course- will - DC - per ID no need for antiibotics CESAR: Secondary to sepsis and dehydration. Resolved taking po well - Avoid nephrotoxins. - dawn removed 01/06 Hypokalemia-resolved - no diarrhea, nausea or vomiting- not on any diuretics - on KCL supplement DM: Recent diagnosis of DM on previous admit, Hgb A1c 8.0 on 10/10/16. . - blood glucose- 150- 250s - restarted on metformin- 500 mg po bid- restarted- continue and monitor Anemia- chronic-VS stable - ff H and H- stable, Iron stuides- suggestive of chronic disease DVT Prophylaxis: Heparin sq CM consult for DC planning- no snf benefits or home heatlh- CM may get nursing for courtesy visits but not PT will DC if ambulating more steadily with PT with walker- encourage him per patient has a son that lives with him but not there all day Problem Qualifiers (1) Cellulitis: Qualified Code: L03.115 - Cellulitis of right lower extremity Missy Blake MD Jan 09, 2017 08:35
--- NOTE | 2017-01-09 08:45 | HHI.FF ---
Face to Face Verification Diagnosis: (1) Foot ulcer due to secondary DM (2) Status post below knee amputation of right lower extremity Home Health Nursing Order: Signs/symptoms of disease process Diabetic education Wound care and dressing changes Nursing assessment with vital signs Instructions: dry dressing to right BKA daily I have seen patient Matthew Hardin on 01/09/17. My clinical findings support the need for the requested home health care services because: Ltd mobility - disease progression Limited ability to care for self Need for psychosocial assistance High risk of falls I certify that my clinical findings support that this patient is homebound because: Need for psychosocial assistance Missy Blake MD Jan 09, 2017 08:44 Missy Blake MD Jan 09, 2017 08:44 Missy Blake MD Jan 09, 2017 08:44 Missy Blake MD Jan 09, 2017 08:44
--- NOTE | 2017-01-09 11:08 | PD.CAR.PN ---
CVT Progress Note Subjective/Hospital Course: 56-year-old patient with diabetes and severe infection of the right foot with a plantar abscess On physical exam patient has good femoral and popliteal pulses but I'm sure he has small vessel disease below the level of the knee although on the left side he has strong dissolves pedis posterior tibial on Doppler On the right side patient has dressing so vessels cannot be palpated or auscultated however he has good capillary refill I will order CTA with runoff to get a baseline study but I doubt that patient will require any vascular reconstruction in order to improve this healing Patient will need a wound VAC and he'll take a while for all this to heal up Full consult to follow Thanks J 12/29/16 CT scan reviewed Patient has diffuse calcific changes throughout his vascular system but no hemodynamically significant inflow stenosis. There is about 50% stenosis of the distal superficial femoral/popliteal artery but I do not see this is a hemodynamically significant event at this time. Patient does have severe distal disease with no straight shot to the foot with bits and pieces of anterior and posterior tibial arteries and multilevel occlusions of both on both sides I've seen today in the operating room the right foot and after debridement there is not much left of the plantar surface of the foot. Patient will have a wound VAC placed and we'll see how he does in next few days but there is a very high chance the patient will end up with below-knee amputation I'll discuss this with the patient at length 12/30/16 I discussed the situation with the patient today He has severe peripheral vascular disease as above noted. There is nothing at this point to reconstruct her open up Dear bits and pieces of the anterior tibial posterior tibial arteries bilateral will multilevel occlusions and dissipation of the vessels as the ankle approaches. Patient is now missing half of his right foot essentially and tarsals and metatarsals are exposed. The chance of this healing is very very minimal and I've explained to the patient a most likely will require below-knee amputation and there is about 30% chance that he'll require an above-knee amputation within the year. Patient has stents that will allow it for about a week of wound VAC and reevaluate this just to dispense with any doubt as far as the further procedure planning 01/03/17 Is previously stated patient had a massive debridement of the right foot which left him with essentially exposed tarsal and metatarsal bones and flexor tendons. This is a huge defect and there is no way to fix this without higher level amputation Nonetheless this looks no clean and this will be doable in one procedure rather than two Patient is scheduled for right below-knee amputation tomorrow 01/06/17 Status post below-knee amputation Incisions clean and dry dressing is intact and has been removed Dressing change daily Patient can transfer to rehabilitation when bed available 01/07/17 Incisions clean and dry well-perfused Change dressing daily Patient can be discharged from my point any time with follow-up with me in about 3 weeks 01/08/17 Stump clean and dry Patient is doing his best to be mobile and walk with a walker versus crutches It's imperative that it doesn't fall on his stump for this could lead to a disaster and a higher level amputation From my point can be discharged any time follow-up with me in several weeks 01/09/17 Right below-knee amputation stump looks great. Nice clean well-perfused warm to touch and healing nicely Patient can be discharged from my point anytime should follow up with my office in about 2 weeks for stitch removal We'll sign off at this time Objective: Vital Signs Date Time Temp Pulse Resp B/P Pulse Ox O2 Delivery O2 Flow Rate FiO2 01/09/17 08:00 97.5 81 17 133/68 97 01/09/17 01:25 97.2 72 18 134/70 95 01/08/17 21:12 98.8 77 18 141/68 96 01/08/17 16:00 97.7 81 15 115/61 96 01/08/17 12:00 97.3 92 15 109/57 95 Result Diagram: 01/07/17 1435 01/07/17 1435 Facundo Mercado MD Jan 09, 2017 11:08
[2017-01-09 12:00] VITALS: BP 93/51; PULSE 82; RESP 18; TEMP 96.6; O2SAT 98
[2017-01-09] MEDS ORDERED: MORPHINE SULFATE 4 MG/ML INJ IV PUSH PRN (12:00)
[2017-01-09 16:00] VITALS: BP 119/59; PULSE 85; RESP 17; TEMP 96.8; O2SAT 97
[2017-01-09 18:24] VITALS: O2SAT 98
[2017-01-09 20:00] VITALS: BP 129/62; PULSE 85; RESP 16; TEMP 98.1; O2SAT 95
[2017-01-10] VITALS: BP 124/65; PULSE 84; RESP 18; TEMP 99.1; O2SAT 95
[2017-01-10 05:04] VITALS: TEMP 95.9
[2017-01-10] MEDS: INSULIN ASPART SUPPLEMENTAL SCALE SQ SCH ×2 (05:06→11:41)
[2017-01-10] MEDS ORDERED: WALKER WHEELS/F1 MIS (07:57)
[2017-01-10 08:00] VITALS: BP 141/68; PULSE 77; RESP 11; TEMP 96.4; O2SAT 97
--- NOTE | 2017-01-10 08:31 | HHI.PR ---
Subjective Remarks patient feeling stronger lives with son- but not there all the time no complains Objective Vitals Vital Signs Date Time Temp Pulse Resp B/P Pulse Ox O2 Delivery O2 Flow Rate FiO2 01/10/17 05:04 95.9 01/10/17 00:00 99.1 84 18 124/65 95 01/09/17 20:00 98.1 85 16 129/62 95 01/09/17 18:24 98 Nasal Cannula 2.00 01/09/17 16:00 96.8 85 17 119/59 97 01/09/17 12:00 96.6 82 18 93/51 98 I/O 01/09/17 01/09/17 01/09/17 01/10/17 01/10/17 01/10/17 07:00 15:00 23:00 07:00 15:00 23:00 Intake Total 640 ml 240 ml 240 ml Output Total 800 ml 500 ml 200 ml Balance -800 ml 640 ml -260 ml 40 ml Intake Oral 640 ml 240 ml 240 ml IV Total 0 ml Output Urine Total 800 ml 500 ml 200 ml # Voids 2 # Bowel Movements 1 0 0 Result Diagram: 01/07/17 1435 01/07/17 1435 Imaging Last Impressions Aorta w/Runoff CTA 12/28/16 0000 Signed Impressions: Service Date/Time: Wednesday, December 28, 2016 17:56 - CONCLUSION: 1. Patent inflow. 2. Right lower extremity with 50%% stenosis of the [id number]-cqq-eahf popliteal artery and severe trifurcation disease without straight line flow to the foot. 3. Left lower extremity with patent outflow and severe trifurcation disease. No straight line flow to the foot. 4. Soft tissue wound involving the medial right foot. 5. Tiny bilateral pleural effusions with associated atelectasis. Marshal Mendez Jr., MD Orbit X-Ray 12/24/16 0000 Signed Impressions: Service Date/Time: Saturday, December 24, 2016 10:09 - CONCLUSION: Unremarkable exam. Rikki Boyd MD Foot MRI 12/24/16 0000 Signed Impressions: Service Date/Time: Saturday, December 24, 2016 10:27 - CONCLUSION: 1. No evidence of osteomyelitis. 2. Nonspecific soft tissue inflammatory changes involving the soft tissues along the plantar surface of the foot at the level between the first and second metatarsals. This is most likely cellulitis. Rikki Boyd MD Chest X-Ray 12/23/16 0129 Signed Impressions: Service Date/Time: Friday, December 23, 2016 01:56 - CONCLUSION: No acute disease. Juan Garza MD Foot X-Ray 12/23/16 0000 Signed Impressions: Service Date/Time: Friday, December 23, 2016 03:46 - CONCLUSION: No definite acute bony findings Juan Garza MD Objective Remarks anicteric sclerae lungs no rales regular rhythm abdomen soft, nontender right BKA- stump - - sutures intack, dry, + ecchymoses post op site Procedures right BKA- 01/04 Date of Removal: Jan 06, 2017 A/P Problem List: (1) Sepsis ICD Code: A41.9 Status: Acute (2) Cellulitis ICD Code: L03.90 Status: Acute (3) CESAR (acute kidney injury) ICD Code: N17.9 Status: Acute (4) DM (diabetes mellitus) ICD Code: E11.9 Status: Acute Assessment and Plan 56 years old male 01/04: s/p R BKA Stable, however hemoglobin was 7.6 on December 28 will repeat the level of hemoglobin 01/05: Stable post right BKA, hemoglobin stable around 8, will follow with surgery recommendation A/P: S/P Sepsis secondary to right foot infection for an abscess: S/P BKA- 01/04 Superficial wound cultures growing group D enterococcus and group B strep, wound cx on 12/27 growing bacteroids sp B - Patient is status post I&D of right foot plantar abscess. Per podiatry, Necrotic fatty tissue noted and foul odor present. Milky purulent drainage noted. Abscess was down to level of plantar fascia and possible vascular compromise. - MRI does not reveal any osteomyelitis. Vascular surgery - cleared for DC s/ p right below-knee amputation - Infectious disease following, vancomycin- DC 01/06 - S/P Flagyl course- CESAR: Secondary to sepsis and dehydration. Resolved - taking po well - Avoid nephrotoxins. - dawn removed 01/06 Hypokalemia-resolved - no diarrhea, nausea or vomiting- not on any diuretics - on KCL supplement DM: Recent diagnosis of DM on previous admit, Hgb A1c 8.0 on 10/10/16. . - blood glucose- 150- 250s - restarted on metformin- 500 mg po bid- restarted- continue and monitor- good readings Anemia- chronic-VS stable - ff H and H- stable, Iron stuides- suggestive of chronic disease DVT Prophylaxis: Heparin sq CM consult for DC planning- no snf benefits or home heatlh- CM may get nursing for courtesy visits but not PT DC today with OP PT, home health care nursing visits D/w to monitor blood sugars. No need for insulin presently. advise on diet Problem Qualifiers (1) Cellulitis: Qualified Code: L03.115 - Cellulitis of right lower extremity Missy Blake MD Jan 10, 2017 08:30
[2017-01-10] MEDS ORDERED: TRAM-388 (08:47)
[2017-01-10] MEDS ORDERED: METF500 PO (08:47)
--- NOTE | 2017-01-10 08:56 | HHI.DS ---
Discharge Summary Admission Date December 23, 2016 at 04:08 Discharge Date: Jan 10, 2017 Admitting Diagnosis right foot infection, sepsis (1) Sepsis ICD Code: A41.9 (2) Cellulitis ICD Code: L03.90 (3) CESAR (acute kidney injury) ICD Code: N17.9 (4) DM (diabetes mellitus) ICD Code: E11.9 Procedures right BKA- 01/04 Brief History - From Admission This is a 56-year-old male with a PMH of HTN and DM who presented to the ER with complaints of right foot infection x1 month. States noticed blister on his foot approx 1 month ago which has gotten progressively worse. Today w/ subjective fever and worsening pain at which time he presented to the ER. On arrival, BP 127/59, HR 119, O2 sat 98% on RA, Temp 100.4. WBC 15.6. Creatinine 1.33, previously 0.85 on 10/13/16. BS 242. Lactic Acid 0.9. INR 1.0. CXR with no acute findings. Foot X-ray with no evidence of osteomyelitis. S/p Blood/Wound Cultures, Vanc/Ancef in ER. CBC/BMP: 01/07/17 1435 01/07/17 1435 Significant Findings Laboratory Tests Test 01/07/17 14:35 Hemoglobin 8.4 GM/DL (13.0-17.0) Hematocrit 25.0 % (39.0-51.0) Carbon Dioxide Level 36.9 MEQ/L (21.0-32.0) Anion Gap 3 MEQ/L (5-15) Estimat Glomerular Filtration 73 ML/MIN (>89) Rate Random Glucose 181 MG/DL (74-106) Calcium Level 8.4 MG/DL (8.5-10.1) Iron Level 23 MCG/DL (65-175) Total Iron Binding Capacity 70 MCG/DL (250-450) Ferritin 417 NG/ML (26-388) Imaging Last Impressions Aorta w/Runoff CTA 12/28/16 0000 Signed Impressions: Service Date/Time: Wednesday, December 28, 2016 17:56 - CONCLUSION: 1. Patent inflow. 2. 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 3. Left lower extremity with patent outflow and severe trifurcation disease. No straight line flow to the foot. 4. Soft tissue wound involving the medial right foot. 5. Tiny bilateral pleural effusions with associated atelectasis. Marshal Mendez Jr., MD Orbit X-Ray 12/24/16 0000 Signed Impressions: Service Date/Time: Saturday, December 24, 2016 10:09 - CONCLUSION: Unremarkable exam. Rikki Boyd MD Foot MRI 12/24/16 0000 Signed Impressions: Service Date/Time: Saturday, December 24, 2016 10:27 - CONCLUSION: 1. No evidence of osteomyelitis. 2. Nonspecific soft tissue inflammatory changes involving the soft tissues along the plantar surface of the foot at the level between the first and second metatarsals. This is most likely cellulitis. Rikki Boyd MD Chest X-Ray 12/23/16 0129 Signed Impressions: Service Date/Time: Friday, December 23, 2016 01:56 - CONCLUSION: No acute disease. Juan Garza MD Foot X-Ray 12/23/16 0000 Signed Impressions: Service Date/Time: Friday, December 23, 2016 03:46 - CONCLUSION: No definite acute bony findings Juan Garza MD PE at Discharge anicteric sclerae lungs no rales regular rhythm abdomen soft, nontender right BKA- stump - - sutures intack, dry, + ecchymoses post op site Pt update on day of discharge afebrile, good readings- d/w goals amublating with PT- with walker- will order for OP PT [facility] Course 56 years old male 01/04: s/p R BKA Stable, however hemoglobin was 7.6 on December 28 will repeat the level of hemoglobin 01/05: Stable post right BKA, hemoglobin stable around 8, will follow with surgery recommendation A/P: S/P Sepsis secondary to right foot infection for an abscess: S/P BKA- 01/04 Superficial wound cultures growing group D enterococcus and group B strep, wound cx on 12/27 growing bacteroids sp B - Patient is status post I&D of right foot plantar abscess. Per podiatry, Necrotic fatty tissue noted and foul odor present. Milky purulent drainage noted. Abscess was down to level of plantar fascia and possible vascular compromise. - MRI does not reveal any osteomyelitis. Vascular surgery - cleared for DC s/ p right below-knee amputation - Infectious disease following, vancomycin- DC 01/06 - S/P Flagyl course- CESAR: Secondary to sepsis and dehydration. Resolved - taking po well - Avoid nephrotoxins. - dawn removed 01/06 Hypokalemia-resolved - no diarrhea, nausea or vomiting- not on any diuretics - on KCL supplement DM: Recent diagnosis of DM on previous admit, Hgb A1c 8.0 on 10/10/16. . - blood glucose- 150- 250s - restarted on metformin- 500 mg po bid- restarted- continue and monitor- good readings - states he ran out of metformin at home- new script written Anemia- chronic-VS stable - ff H and H- stable, Iron stuides- suggestive of chronic disease DVT Prophylaxis: Heparin sq CM consult for DC planning- no snf benefits or home heatlh- CM may get nursing for courtesy visits but not PT DC today with OP PT, home health care nursing visits D/w to monitor blood sugars. No need for insulin presently. advise on diet Pt Condition on Discharge: Stable Discharge Disposition: Disch w/ Home Health Serv Discharge Time: <= 30 minutes Discharge Instructions DIET: Follow Instructions for: Heart Healthy Diet, Diabetic Diet Speech Therapy-Diet Recommends: Regular Activities you can perform: Weight Bearing as Joseph, See Additionl Instruction ( use walker) Activities to Avoid: Prolonged Standing, Strenuous Activity Other Activity Instructions: FWW Follow up Referrals: PCP Follow-up - 3-5 Days with [facility] Therapy - 01/13/17 with OUTPATIENT referral Vascular Surgery - 10 Days with Facundo Mercado MD New Medications: Walker with Front Wheels (Walker with Front Wheels) 1 Mis Mis 1 EA .ROUTE DIRECTED s/P BKA #1 Ref 0 EA Amlodipine (Norvasc) 5 Mg Tab 5 MG PO DAILY htn #30 TAB Metformin (Glucophage) 500 Mg Tab 500 MG PO BIDPC DM Days 30 Ref 1 TAB Tramadol-Acetaminophen (Tramadol-Acetaminophen) 37.5-325 mg Tab 1 TAB .ROUTE Q6HR ALT NEB PRN PAIN SCALE 4 TO 10 #30 TAB Continued Medications: Metformin (Metformin) 500 Mg Tab 500 MG PO BIDPC With meals Blood Sugar Management #180 Ref 0 TAB Missy Blake MD Jan 10, 2017 08:56
[2017-01-10] MEDS: metFORMIN HCL 500 MG TAB PO SCH (09:38)
[2017-01-10] MEDS: SODIUM CHLORIDE 0.9% FLUSH 10 ML FLUSH IV FLUSH SCH (09:38)
[2017-01-10] MEDS: DOCUSATE SODIUM 50 MG/SENNA 8.6 MG TAB PO SCH (09:39)
[2017-01-10] MEDS: HEPARIN SODIUM - SQ 10,000 UNITS/ML VIAL SQ SCH (09:39)
[2017-01-10] MEDS: amLODIPine BESYLATE 5 MG TAB PO SCH (09:39)
[2017-01-10 12:00] VITALS: BP 102/57; PULSE 86; RESP 16; TEMP 96.6; O2SAT 99
[2017-01-20] MEDS ORDERED: AMLO5 PO (11:54)
[2017-01-20] MEDS ORDERED: METF500T PO (11:54)
== END 2017-01-10 16:37 | disposition home health service (06) | DRG 854 ==
LOC: NEPE 22:35 → NEDA 12-23 04:08 → N07B 12-23 05:34
PROVIDERS: ADMIT Internal Medicine; ATTEND Internal Medicine
PROC: 0J9Q0ZZ Drainage of Right Foot Subcutaneous Tissue and Fascia, Open Approach (ICD-10-PCS; 2016-12-24)
PROC: 0JDQ0ZZ Extraction of Right Foot Subcutaneous Tissue and Fascia, Open Approach (ICD-10-PCS; 2016-12-27)
PROC: 0JDQ0ZZ Extraction of Right Foot Subcutaneous Tissue and Fascia, Open Approach (ICD-10-PCS; 2016-12-29)
PROC: 0Y6F0ZZ Detachment at Right Knee Region, Open Approach (ICD-10-PCS; principal; 2017-01-04 09:15)
DX: A40.1 Sepsis due to streptococcus, group B (principal); N17.9 Acute kidney failure, unspecified; R65.20 Severe sepsis without septic shock; E11.52 Type 2 diabetes mellitus with diabetic peripheral angiopathy with gangrene; I95.9 Hypotension, unspecified; L03.115 Cellulitis of right lower limb; E11.621 Type 2 diabetes mellitus with foot ulcer; L02.611 Cutaneous abscess of right foot; E11.628 Type 2 diabetes mellitus with other skin complications; I10 Essential (primary) hypertension; L97.519 Non-pressure chronic ulcer of other part of right foot with unspecified severity; E86.0 Dehydration; E87.6 Hypokalemia; M54.30 Sciatica, unspecified side; Z79.4 Long term (current) use of insulin; Z88.0 Allergy status to penicillin
CPT/HCPCS: 70250; 71010; 73630; 73720; 75635; 80048; 80053; 80202; 81001; 82550; 82565; 82728; 82948; 83540; 83550; 83605; 83690; 83735; 83880; 84484; 85014; 85018; 85025; 85027; 85610; 85730; 86140; 86403; 86850; 86900; 86901; 86920; 87015; 87040; 87070; 87076; 87077; 87102; 87116; 87185; 87186; 87205; 87206; 88307; 88311; 96365; 96367; A9579; J0690; J0692; J0696; J1580; J1644; J1815; J2250; J2270; J2370; J2405; J2795; J3010; J3370; J7030; J7040; J7050; Q9967

== ENCOUNTER → 2017-01-20 | Outpatient (CLI) | payer SELFPAY ==
[~2017-01-20] MED LIST changes: +AMLO5 PO; -LEVA500T PO; +METF500 PO; -NOVO7030P2 SQ; -NOVOLOGSS SQ; +TRAM-388; +WALKER WHEELS/F1 MIS
[2017-01-20 12:45] LABS: AUTOMATED NEUTROPHIL # 5.3 TH/MM3 (1.8-7.7); BASOPHIL # 0.1 TH/MM3 (0-0.2); BASOPHIL % 0.9 % (0.0-2.0); EOSINOPHIL # 0.3 TH/MM3 (0-0.4); EOSINOPHIL % 3.7 % (0.0-4.0); HEMATOCRIT 31.6 % (39.0-51.0); HEMO FLAGS DIFF FINAL; LYMPH % 17.5 % (9.0-44.0); LYMPHOCYTE # 1.3 TH/MM3 (1.0-4.8); MEAN CELL VOLUME 82.6 FL (80.0-100.0); MEAN CORPUSCULAR HEMOGLOBIN 27.7 PG (27.0-34.0); MEAN CORPUSCULAR HGB CONC 33.6 % (32.0-36.0); MONO % 7.5 % (0.0-8.0); NEUT % 70.4 % (16.0-70.0); PLATELET COUNT 410 TH/MM3 (150-450); RED BLOOD COUNT 3.82 MIL/MM3 (4.50-5.90); RED CELL DISTRIBUTION WIDTH 15.4 % (11.6-17.2); WHITE BLOOD COUNT 7.5 TH/MM3 (4.0-11.0)
[2017-01-20 13:23] LABS: ALT (GPT) 20 U/L (12-78); ANION GAP 10 MEQ/L (5-15); AST (GOT) 20 U/L (15-37); BICARBONATE 26.4 MEQ/L (21.0-32.0); BLOOD UREA NITROGEN 33 MG/DL (7-18); CHLORIDE 105 MEQ/L (98-107); GLOMERULAR FILTRATION RATE 56 ML/MIN (>89); GLUCOSE,FASTING 115 MG/DL (74-99); POTASSIUM 4.5 MEQ/L (3.5-5.1); SODIUM (NA) 141 MEQ/L (136-145)
[2017-01-20 13:25] LABS: ALKALINE PHOSPHATASE 126 U/L (45-117); TOTAL BILIRUBIN ADULT 0.4 MG/DL (0.2-1.0)
--- NOTE | 2017-01-24 20:26 | MP ---
cc: ALONSO BASSETT DPM DATE OF SURGERY 12/27/16 DATE OF : 56 This patient presented to the emergency department with an infection to the right plantar foot. He had a previous incision and drainage that communicated from the tarsal tunnel area all the way down to the sub second metatarsal head area and was found to have a need for further surgery. He was scheduled for a repeat incision and drainage right plantar foot with culture. The patient had potential complications explained to him in great detail and consented to move forward with surgery. He was seen in preop holding by myself, nursing staff and Anesthesia where the correct patient, side and site were all confirmed to be correct and the right plantar foot. Attention was directed to the right foot. It was prepped and draped in normal sterile fashion followed by attention directed to the plantar aspect where the previous incision and drainage area from the tarsal tunnel down to the second metatarsal head area was found to be down to tendon and plantar fascia as well as palpable bone in the area. In the subcutaneous tissue, there was found to be liquefactive necrosis throughout the area with coagulated blood vessels. No bleeding tissue was noted within the wound. It was irrigated copiously with six liters of normal sterile saline plus gentamicin. Foul odor was present with milky purulent drainage which was cultured prior to irrigation with six liters of normal saline and all necrotic tissue that was visible was removed using a #15 blade rongeur as well as a curette followed by a dressing consisting of packing open with Xeroform, 4x4s, ABD, cast padding with Jakob bandage. I strongly recommend vascular evaluation for possible below-knee amputation due to lack of viable tissue and nonpalpable pulses as well as significant progression of the infection the past few days. He was returned to PACU with vital signs stable, vascular status questionable to the right foot. He will have evaluation of the right foot to determine viability of the right foot in the coming days. SHORT OPERATIVE NOTE SURGEON Dr. Inés Bassett [employer] Staff PREOPERATIVE DIAGNOSIS Abscess right plantar foot. POSTOPERATIVE DIAGNOSIS Abscess right plantar foot. PROCEDURE Incision and drainage right plantar foot with cultures. PATHOLOGY Culture right foot. ANESTHESIA General endotracheal anesthesia. ESTIMATED BLOOD LOSS Minimal CONDITION Stable to PACU. COMPLICATIONS None DISPOSITION Non-weightbearing right foot with evaluation per vascular for possible BKA. Alonso Bassett / /2:19 PM /8:09 PM
== END ==
LOC: CLAB 12:16
PROVIDERS: ATTEND Family Medicine
DX: N17.9 Acute kidney failure, unspecified (principal); D64.9 Anemia, unspecified; Z89.519 Acquired absence of unspecified leg below knee
CPT/HCPCS: 36415; 80053; 85025